=== PATIENT | male | born 1950 | race Caucasian/White ===

== ENCOUNTER 2024-03-04 08:26 | Outpatient (OUT) | payer MEDICARE, BC, SELFPAY ==
--- NOTE | 2024-03-04 08:10 | NM_ITS ---
Patient Name: GO ALVAREZ MR#: [id number] : 1950 Exam Date: 03/04/2024 Ordering Doctor: DR SUSHIL PAK . RADIOLOGY REPORT PROCEDURE: NM AL PERF SPECT REST STR COMPARISON: None. INDICATIONS: CHEST PRESSURE, SHORTNESS OF BREATH TECHNIQUE: Exam Description: Stress/Rest one day protocol gated SPECT Rest Imagin.9 mCi Tc-99m Cardiolite IV on 03/04/2024 Stress Imaging 30.2 mCi Tc-99m Cardiolite IV on 03/04/2024 Exercise Protocol: 0.4 mg Lexiscan given IV Heart Rate (bpm): Rest: 71 Max: 100 PMHR: 68 Blood Pressure: Rest: 156/82 Max: 156/82 Symptoms: Rest and peak stress ECG findings were normal and the exercise portion of the study was normal per attending physician Dr. Fajardo . For more details please see separate cardiac stress test report. FINDINGS: QUALITY OF STUDY: Excellent. PERFUSION DEFECT: LOCATION: Basal inferior. Mid-inferior. Apical inferior. SIZE: Medium (3-4 segments). SEVERITY: Mild. TYPE: Persistent. WALL MOTION: Mild hypokinesis: LV SIZE: Enlarged; EDV 142 mL. TID / TCD: None; 1.0 LVEF: Abnormal. Calculated EF 45%. SUMMARY: Myocardial perfusion imaging study has ABNORMAL findings. CONCLUSION: 1. No acute or reversible ischemia. 2. Fixed, mild ischemia of inferior wall. 3. Global mild hypokinesis. 4. Left ventriculomegaly, 142 mL. 5. Abnormal low left ventricle ejection fraction, 45%. Dictated by: Domenic Son M.D. on 03/05/2024 at 14:24 Approved by: Domenic Son M.D. on 03/05/2024 at 14:32
[2024-03-04] MEDS: REGADENOSON 0.4 MG/5 ML SYRINGE 0.400000000000000022 MG IV (10:08)
--- NOTE | 2024-03-04 11:15 | CA_ITS ---
Patient Name: GO ALVAREZ MR#: [id number] : 1950 Exam Date: 03/04/2024 Ordering Doctor: DR SUSHIL PAK . ECHOCARDIOGRAM REPORT PROCEDURE: CA ECHO DOPPLER COMPLETE INDICATIONS: SHORTNESS OF BREATH, CHEST PRESSURE COMPARISON: None. DESCRIPTION: COMPLETE ECHOCARDIOGRAM Real-time transthoracic echocardiography with 2D, M-mode, spectral and color flow Doppler performed. QUALITY: Technical quality was good. LEFT VENTRICLE: Normal chamber size. Borderline left ventricular hypertrophy. Global left ventricular systolic function is normal. LV EF: Estimated left ventricular ejection fraction is 55% DIASTOLIC: Diastolic function is indeterminate. ATRIAL SEPTUM: LEFT ATRIUM: Mild dilatation. RIGHT ATRIUM: Mild dilatation. RIGHT VENTRICLE: Normal chamber size. Normal right ventricular systolic function. TRICUSPID VALVE: Normal mobility and thickness. Normal with trivial regurgitation. No evidence of pulmonary hypertension. RVSP 17 mmHg MITRAL VALVE: Normal mobility and thickness. No evidence of mitral valve stenosis. There is no mitral annular calcification. Trivial mitral regurgitation. AORTIC VALVE: Normal trileaflet appearance. Mildly calcified aortic valve. Normal leaflet mobility. No evidence of aortic valve stenosis. No aortic regurgitation. AORTIC ROOT: Normal diameter and appearance. PULMONIC VALVE: Normal thickness and mobility. No stenosis. No regurgitation. PERICARDIUM: No evidence of pericardial effusion. IVC: Collapses with inspirations. Normal size. PLEURA: CONCLUSION: 1. Normal ventricular systolic function. LVEF is 55%. 2. No significant valvular dysfunction. 3. Normal right-sided pressures. 4. No pericardial effusion. Adult Echocardiography Procedure Report Left Ventricle LVEDD (3.7 - 5.6 cm): 5.24 cm LVESD (2.2 - 4.0 cm): 3.48 cm LVIVS thickness (0.6 - 1.2 cm): 1.01 cm LVPW thickness (0.5 - 1.0 cm): 1.12 cm e': 0.09 m/s E - e': 8.64 LVOT Max Gradient: 3.00 mm[Hg] LVOT Area (cm2): 0.87 m/s Peak Velocity (LVOT): 0.87 m/s Mean Velocity (LVOT): 0.56 m/s LVOT Diameter 2.31 cm Left Ventricular Ejection Fraction: 55 % Left Atrium LA Volume Index (2D A2C): 43.70 ml/m2 Left Atrium Systolic Dimension: 4.03 cm Mitral Valve MV E to A Ratio: 0.81 Mitral Valve A-Wave Peak Velocity: 0.98 m/s Mitral Valve E-Wave Peak Velocity: 0.79 m/s Right Ventricle RV Internal Diastolic Dimension: 3.62 cm Aorta AO Root Diam: 3.79 cm Ascending Ao Diam: 3.61 cm Aortic Valve AoV Area (Peak Burt): 1.91 cm2, 1.91 cm2 AoV Area (VTI): 1.91 cm2, 1.91 cm2 Peak Velocity(Antegrade Flow): 1.90 m/s Peak Gradient(Antegrade Flow): 14.49 mm[Hg] Mean Velocity(Antegrade Flow): 1.22 m/s Mean Gradient(Antegrade Flow): 6.78 mm[Hg] Velocity Time Integral: 37.36 cm Tricuspid Valve Peak Velocity (Regurgitant Flow): 1.28 m/s, 1.88 m/s Pulmonic Valve Mean Gradient: 2.22 mm[Hg], 2.61 mm[Hg], 3.41 mm[Hg], 3.14 mm[Hg] Mean Velocity: 0.67 m/s, 0.74 m/s, 0.88 m/s, 0.82 m/s Peak Velocity: 1.14 m/s Peak Gradient: 4.49 mm[Hg], 4.73 mm[Hg], 5.31 mm[Hg], 6.49 mm[Hg] Right Atrium Right Atrium Systolic Pressure: 66.75 ml, 66.75 ml Dictated by: Eran Galindo M.D. on 03/06/2024 at 12:56 Approved by: Eran Galindo M.D. on 03/06/2024 at 12:59
--- NOTE | 2024-03-04 16:12 | P.STRESS_ITS ---
Stress Test Stress Test Requesting physician: SUSHIL PAK Procedure: Lexiscan Cardilite stress test General Information: Reason for Stress Test: Dyspnea, chest pressure Cardiac History and Risk Factors: Prior AR Resting 12 - Lead Electrocardiogram: Rate & rhythm: Normal sinus at a rate of 72. [place]: Normal T-waves: Normal ST-segments: Normal orientation 1st-degree AV block Stress Test: Protocol: Doni protocol was initiated, but due to inability to ambulate, the exercise component was therefore canceled.? Testing was changed to Lexiscan protocol, with injection of 0.4mg Lexiscan IV push followed by Cardiolite. Blood pressure: Initial & maximum: 156/82 Rate & rhythm: Patient remained in sinus rhythm during the exercise and recovery portions of the study.? The maximum heart rate was 100, which was 68% of the maximum predicted heart rate 147. ST-segments & T-waves: There were no T-wave changes and no ST-segment changes when compared to the baseline EKG. Patient response/symptoms: There were no symptoms similar to the chief complaint. Interpretation: Normal Lexiscan stress test without electrocardiographical evidence of ischemia. Patient was asymptomatic regarding chief complaint. Cardiolite imaging interpretation will be reported separately. Clinical correlation required.
== END 2024-03-04 08:27 | disposition home or self-care (01) ==
LOC: NM 08:26
PROVIDERS: PCP Family Medicine; Visit Provider Family Medicine
DX: R06.09 Other forms of dyspnea (principal); R07.2 Precordial pain; I50.32 Chronic diastolic (congestive) heart failure; I44.0 Atrioventricular block, first degree; I25.5 Ischemic cardiomyopathy; I44.7 Left bundle-branch block, unspecified; I51.7 Cardiomegaly
CPT/HCPCS: 78452; 93017; 93306; A9500; J2785

== ENCOUNTER 2025-03-22 09:43 | Observation (INO) | payer MEDICARE, SELFPAY ==
[2025-03-22] VITALS (10 sets, daily range): BP systolic 130–179; BP diastolic 65–90; PULSE 79–91; TEMP 36.3–37.4; O2SAT 93–96; BMI 33.0; BMI 33.3
--- OUTSIDE RECORDS SUMMARY | 2025-03-22 09:51 | XMS_ITS | CCD ---
Author Organization [facility] Team Providers Care Vp Scientific Name Role Phone Danelle Silva Unavailable Essence Ledezma Unavailable DR SUSHIL PAK Primary Care Unavailable POCOS, DR LY Attending Unavailable POCOS, DR LY Consulting Unavailable POCOS, DR LY Admitting Unavailable Sushil Pak MD Unavailable [phone] Sushil Pak MD Primary Care Provider Peg MELVIN, Satish Aquino Unavailable Sushil Pak MD Unavailable Sushil Pak MD Primary Care Provider [phone] Jojo Jc LPN Unavailable Unavailable SUSHIL PAK Attending Unavailable SUSHIL PAK Attending Unavailable SUSHIL PAK Attending Unavailable SUSHIL PAK Attending Unavailable SUSHIL PAK Attending Unavailable SUSHIL PAK Attending Unavailable Medications Current Medications Medication Drug Class(es) Dates Sig (Normalized) Sig (Original) acarbose 100 mg oral tablet (3 sources) alpha-Glucosidase Inhibitor Acarbose 100 MG Oral for 90 Active [id number] 200 actuat albuterol 0.09 mg/actuat metered dose inhaler (9 sources) beta2-Adrenergic Agonist Start: 09-23-2021 take 2 puff(s) by inhalation four times daily as needed Albuterol Sulfate HFA 108 (90 Base) MCG/ACT 2 puffs Inhalation qid prn Aug, Active Start: 09-23-2021 take 2 puff(s) by in halation four times daily as needed Albuterol Sulfate HFA 108 (90 Base) MCG/ACT 2 puffs Inhalation qid prn Aug, Active Start: 07-19-2021 take 2 puff(s) by in halation every four hours as needed Albuterol Sulfate HFA 108 (90 Base) MCG/ACT 2 puffs as needed Inhalation every 4 hrs January, Active Start: 07-19-2021 take 2 puff(s) by in halation every four hours as needed Albuterol Sulfate HFA 108 (90 Base) MCG/ACT 2 puffs as needed Inhalation every 4 hrs Jul, Active take 2 puff(s) by in halation every six hours as needed Albuterol Sulfate HFA 108 (90 Base) MCG/ACT 2 puffs as needed Inhalation every 6 hrs for 30 days Not-Taking take 2 puff(s) by in halation every six hours as needed Albuterol Sulfate HFA 108 (90 Base) MCG/ACT 2 puffs as needed Inhalation every 6 hrs for 30 days Not-Taking aspirin 81 mg delayed release oral tablet (14 sources) Platelet Aggregation Inhibitor, Nonsteroidal Anti-inflammatory Drug take 1 tablet by mouth every other day aspirin 81 MG EC tablet Take 81 mg by mouth every other day. Active Blood Glucose Monitoring Suppl (True Metrix Meter) w/Device kit (14 sources) Start: Blood Glucose Monitoring Suppl (True Metrix Meter) w/Device kit USE DIRECTED to check BLOOD SUGAR TWICE DAILY 01/04/2024 Active Blood-Glucose Meter (True Metrix Glucose Meter) misc (1 source) Start: 024 Blood-Glucose Meter (True Metrix Glucose Meter) [facility] Active EACH .ROUTE .MEDSUPPLY March 16, 2024 12:00am As directed Continuous Glucose General Surgery Physician Assistant (FreeStyle Bridger 3 [place]) device (6 sources) Start: 025 Continuous Glucose General Surgery Physician Assistant (FreeStyle Bridger 3 [place]) device Indications: Type 2 diabetes mellitus with both eyes affected by mild nonproliferative retinopathy without macular edema, without long-term current use of insulin ([facility]) 1 Device See administration instructions Using Bridger 3 plus sensors 1 each 10/23/2024 Active Start: 10-23-2024 Continuous Glu cose General Surgery Physician Assistant (FreeStyle Bridger 3 [place]) device Indications: Type 2 diabetes mellitus with both eyes affected by mild nonproliferative retinopathy without macular edema, without long-term current use of insulin (CMS/HCC) 1 Device See administration instructions 10/23/2024 Active Continuous Glucose Sensor (FreeStyle Bridger 3 Plus Sensor) mis (6 sources) Start: 02-24-2025 End: 02-24-2026 Continuous Glucose Sensor (FreeStyle Bridger 3 Plus Sensor) [facility] [place]ications: Type 2 diabetes mellitus with both eyes affected by mild nonproliferative retinopathy without macular edema, without long-term current use of insulin (CMS/HCC) Inject 1 Device into the skin Every 15 Days 6 each 3 02/24/2025 02/24/2026 Active Start: 10-23-2024 End: 02-24-2025 Continuous Glucose Sensor (F reeStyle Bridger 3 Plus Sensor) [facility] Indications: Type 2 diabetes mellitus with both eyes affected by mild nonproliferative retinopathy without macular edema, without long-term current use of insulin (CMS/HCC) Inject 1 Device into the skin Every 15 Days 6 each 3 10/23/2024 02/24/2025 Discontinued (Reorder) Start: 10-23-2024 End: 10-23-2025 Continuous Glucose Sensor (F reeStyle Bridger 3 Plus Sensor) [facility] Indications: Type 2 diabetes mellitus with both eyes affected by mild nonproliferative retinopathy without macular edema, without long-term current use of insulin (CMS/HCC) Inject 1 Device into the skin Every 15 Days 6 each 3 10/23/2024 10/23/2025 Active Continuous Glucose Sensor (FreeStyle Bridger 3 Sensor) mis (2 sources) Start: 10-23-2024 Continuous Glucose Sensor (FreeStyle Bridger 3 Sensor) [facility] Indications: Type 2 diabetes mellitus with both eyes affected by mild nonproliferative retinopathy without macular edema, without long-term current use of insulin (CMS/HCC) Inject 1 Device under the skin every 14 (fourteen) days 10/23/2024 Active fluticasone propionate 0.05 mg/actuat metered dose nasal spray (2 sources) Corticosteroid Start: 09-23-2021 take 2 spray(s) nasal route once daily Fluticasone Propionate 50 MCG/ACT 2 sprays Nasally Once a day for 14 day(s) Aug, Active hydroCHLOROthiazide 12.5 mg / losartan potassium 100 mg oral tablet (4 sources) Thiazide Diuretic, Angiotensin 2 Receptor Stuart Start: 03-16-2024 take 1 tablet by mouth once daily Losartan-Hydrochloro thiazide Active 1 TAB PO Daily March 16, 2024 12:00am FreeTextSig: Oral; Note: Source Status: Taking; Qty: 90 delayed release tablet; Provider: Ricardo Mcclendon ( ) Losartan Potassi um-HCTZ 100-12.5 MG Oral for 90 Active Insulin Aspart U-100 (Novolog Flexpen U-100 Insulin) 100 unit/mL (3 mL) insulin pen (1 source) Start: 03-16-2024 Insulin Aspart U-100 (Novolog Flexpen U-100 Insulin) 100 unit/mL (3 mL) insulin pen Active 1 sliding scale dose SUBCUT Use as Directed March 16, 2024 12:00am insulin aspart, human (3 sources) Insulin Analog NovoLOG Active 3 ml insulin degludec 100 unt/ml pen injector (6 sources) Insulin Analog Start: 11-18-2024 inject 10 [IU] by subcutaneous injection once daily insulin degludec (Tresiba FlexTouch) 100 UNIT/ML injection Indications: Type 2 diabetes mellitus with both eyes affected by mild nonproliferative retinopathy without macular edema, without long-term current use of insulin (CMS/HCC) Inject 10 Units under the skin Daily 15 mL 11/18/2024 Active Start: 10-23-2024 inject 10 [IU] by woodard bcutaneous injection once daily insulin degludec (Tresiba FlexTouch) 100 UNIT/ML injection Indications: Type 2 diabetes mellitus with both eyes affected by mild nonproliferative retinopathy without macular edema, without long-term current use of insulin (CMS/HCC) Inject 10 Units under the skin Daily 10/23/2024 Active Start: 10-23-2024 inject 10 [IU] by woodard bcutaneous injection once daily insulin degludec (Tresiba FlexTouch) 100 UNIT/ML injection Indications: Type 2 diabetes mellitus with both eyes affected by mild nonproliferative retinopathy without macular edema, without long-term current use of insulin (CMS/HCC) Inject 10 Units under the skin Daily 10/23/2024 Active pioglitazone 45 mg oral tablet (3 sources) Peroxisome Proliferator Receptor alpha Agonist, Peroxisome Proliferator Receptor gamma Agonist, Thiazolidinedione Pioglitazone HCl 45 MG Oral for 90 Active predniSONE 20 mg oral tablet (1 source) Start: 2020 take 1 tablet by mouth every twelve hours predniSONE 20 MG 1 tablet Orally bid for 5 day(s) Aug, Active semaglutide 14 mg oral tablet (20 sources) Start: 2024 take 1 tablet by mouth before mealtime semaglutide (Rybelsus) 14 MG tablet Indications: Type 2 diabetes mellitus with both eyes affected by mild nonproliferative retinopathy without macular edema, without long-term current use of insulin ([facility]) Take 1 tablet (14 mg) by mouth in the morning. Take before meals. 30 tablet 11/18/2024 Active Start: 08-11-2024 End: 10-22-2024 semaglutide (Rybelsus) 14 MG tablet Take 14 mg by mouth in the morning. Take before meals. Do not start before August 11, 2024. 08/11/2024 10/22/2024 Discontinued (Reorder) Start: 08-11-2024 semaglutide (R ybelsus) 14 MG tablet Take 14 mg by mouth in the morning. Take before meals. Do not start before August 11, 2024. 08/11/2024 Active Start: 08-11-2024 semaglutide (R ybelsus) 14 MG tablet Take 14 mg by mouth in the morning. Take before meals. Do not start before August 11, 2024. 08/11/2024 Active Start: 08-11-2024 semaglutide (R ybelsus) 14 MG tablet Take 14 mg by mouth in the morning. Take before meals. Do not start before August 11, 2024. 08/11/2024 Active Start: 08-11-2024 semaglutide (R ybelsus) 14 MG tablet Take 14 mg by mouth in the morning. Take before meals. Do not start before August 11, 2024. 08/11/2024 Active Start: 07-12-2024 End: 10-20-2024 semaglutide (Rybelsus) 7 MG tablet Take 7 mg by mouth in the morning. Take before meals. Do not start before July 12, 2024. 07/12/2024 10/20/2024 Discontinued (Med list cleanup) Start: 06-12-2024 End: 07-21-2024 semaglutide (Rybelsus) 3 MG tablet Take 3 mg by mouth in the morning. Take before meals. Do not start before June 12, 2024. 06/12/2024 07/21/2024 Discontinued (Therapy completed) {20 (nirmatrelvir 150 MG Ora l Tablet) / 10 (ritonavir 100 MG Oral Tablet) } Pack [Paxlovid 5-Day] (1 source) Start: 02-04-2022 Paxlovid 20 x 150 MG & 10 x 100MG as directed Orally as directed for 5 day(s) January, Active Completed/Discontinued Medications Medication Drug Class(es) Dates Sig (Normalized) Sig (Original) allopurinol 100 mg oral tablet (20 sources) Xanthine Oxidase Inhibitor Start: 07-21-2024 End: 08-23-2025 take 1 tablet by mouth once daily allopurinol (Zyloprim) 100 MG tablet Indications: Hyperuricemia Take 1 tablet (100 mg) by mouth Daily 90 tablet 1 10/22/2024 02/24/2025 Discontinued (Reorder) Start: 03-16-2024 Allopurinol Ac tive MG PO March 16, 2024 12:00am FreeTextSig: Oral; Note: Source Status: Taking; Qty: 90 delayed release tablet; Provider: Ricardo Mcclendon ( ) azithromycin 250 mg oral tablet (10 sources) Macrolide Antimicrobial Start: 10-08-2024 End: 10-22-2024 azithromycin (Zithromax) 250 MG tablet Indications: Bronchitis Take 2 tablets day one then 1 tablet daily 6 tablet 10/08/2024 10/22/2024 Discontinued (Therapy completed) Start: 07-19-2021 Azithromycin 2 50 MG 2 tablets on the first day, then 1 tablet daily for 4 days Orally Once a day for 5 day(s) Jul, Not-Taking dextromethorphan hydrobromide 15 mg / guaiFENesin 400 mg / pseudoephedrine hydrochloride 60 mg oral tablet (6 sources) alpha-Adrenergic Agonist, Uncompetitive P-rdjbiz-G-aspartate Receptor Antagonist, Sigma-1 Agonist Start: 10-14-2024 End: 10-24-2024 take 1 tablet by mouth in the morning, then take 1 tablet by mouth in the evening, then take 1 tablet by mouth at bedtime fgniiguxtjgqqmf-YJ-XY (Capmist DM) 60-15-400 MG tablet Indications: Bronchitis Take 1 tablet by mouth in the morning and 1 tablet in the evening and 1 tablet before bedtime. Do all this for 10 days. 30 tablet 10/14/2024 10/22/2024 Discontinued (Therapy completed) Start: 03-16-2024 take 4 tablets by mo [facility] every twenty-four hours Ebpkytnyaiueerf-Cx-Tvktaswftot (Capmist Dm) 60-15-400 mg tablet Active 1 TAB PO EVERY 4-6 HOURS March 16, 2024 12:00am do not exceed 4 doses per 24 hrs levoFLOXacin 750 mg oral tablet (4 sources) Quinolone Antimicrobial Start: 10-14-2024 End: 10-22-2024 take 1 tablet by mouth once daily levoFLOXacin (Levaquin) 750 MG tablet Indications: Bronchitis Take 1 tablet (750 mg) by mouth Daily for 7 days 7 tablet 10/14/2024 10/22/2024 Discontinued (Therapy completed) losartan potassium 50 mg oral tablet (20 sources) Angiotensin 2 Receptor Stuart Start: 07-21-2024 End: 08-23-2025 take 1 tablet by mouth in the morning losartan (Cozaar) 50 MG tablet Indications: Benign essential hypertension (CMS/HCC) Take 1 tablet (50 mg) by mouth in the morning. 90 tablet 1 10/22/2024 02/24/2025 Discontinued (Reorder) Start: 03-20-2024 End: 07-21-2024 take 1 tablet by mouth in the morning losartan (Cozaar) 25 MG tablet Indications: Type 2 diabetes mellitus with hyperglycemia, without long-term current use of insulin (CMS/HCC) Take 1 tablet (25 mg) by mouth in the morning. 90 tablet 03/20/2024 07/21/2024 Discontinued (Reorder) 24 hr metFORMIN hydrochloride 750 mg extended release oral tablet (20 sources) Biguanide Start: 07-15-2024 End: 08-23-2025 take 1 tablet by mouth every twenty-four hours in the morning metFORMIN XR (Glucophage-XR) 750 MG 24 hr tablet Indications: Type 2 diabetes mellitus with hyperglycemia, without long-term current use of insulin (CMS/HCC) Take 1 tablet (750 mg) by mouth in the morning and 1 tablet (750 mg) before bedtime. Do not crush, chew, or split.. 180 tablet 1 10/22/2024 02/24/2025 Discontinued (Reorder) Start: 03-16-2024 Metformin Acti ve MG PO March 16, 2024 12:00am metFORMIN HCl 10 00 MG Oral for 90 Active methylPREDNISolone 4 mg oral tablet (7 sources) Corticosteroid Start: 09-28-2019 methylPREDNISo lone 4 MG as directed Orally Once a day for 6 days Jul, Not-Taking Suprep Bowel Prep Kit 17.5-3.13-1.6 GM/180ML (3 sources) Start: 10-23-2019 Suprep Bowel P rep Kit 17.5-3.13-1.6 GM/180ML 177 ML BOTTLE AT 4 PM AND ONE BOTTLE AT 11 PM DAY PRIOR TO PROCEDURE Orally Twice a day for 1 day(s) Oct, Not-Taking Problems Active Problems Problem Classification Problem Date Documented Date Episodic/Chronic Cataract (14 sources) Bilateral pseudophakia; Translations: [Presence of intraocular lens] Onset: 07-13-2023 07-13-2023 Chronic Chronic obstructive pulmonary disease and bronchiectasis (4 sources) Bronchitis, not specified as acute or chronic; Translations: [Bronchitis] Onset: 07-19-2021 Resolved: 02-04-2022 Episodic Conduction disorders (20 sources) Left bundle branch block; Translations: [Left bundle-branch block, unspecified] Onset: 07-31-2023 07-31-2023 Chronic Congestive heart failure; nonhypertensive (14 sources) Chronic diastolic heart failure; Translations: [Chronic diastolic (congestive) heart failure] Onset: 07-31-2023 01-07-2024 Chronic Coronary atherosclerosis and other heart disease (14 sources) Ischemic myocardial dysfunction; Translations: [Ischemic cardiomyopathy] Onset: 01-07-2024 01-07-2024 Chronic Diabetes mellitus with complications (20 sources) Type 2 diabetes mellitus with mild nonproliferative diabetic retinopathy without macular edema, bilateral; Translations: [Diabetes with ophthalmic manifestations, type II or unspecified type, not stated as uncontrolled] Onset: 07-13-2023 07-13-2023 Chronic Diverticulosis and diverticulitis (14 sources) Diverticulum of large intestine without hemorrhage; Translations: [Diverticulosis of large intestine without perforation or abscess without bleeding] Onset: 07-31-2023 07-31-2023 Chronic Essential hypertension (20 sources) Hypertensive disorder; Translations: [Essential (primary) hypertension] Onset: 07-31-2023 03-16-2024 Chronic Genitourinary symptoms and ill-defined conditions (18 sources) Microalbuminuria; Translations: [Proteinuria, unspecified] Onset: 07-31-2023 07-31-2023 Episodic Gout and other crystal arthropathies (1 source) Gout; Translations: [Gout, unspecified] 03-16-2024 Chronic Hyperplasia of prostate (14 sources) Benign localized hyperplasia of prostate; Translations: [Benign prostatic hyperplasia without lower urinary tract symptoms] Onset: 07-31-2023 07-31-2023 Chronic Hypertension with complications and secondary hypertension (2 sources) Hypertensive renal disease; Translations: [Hypertensive chronic kidney disease with stage 1 through stage 4 chronic kidney disease, or unspecified chronic kidney disease] 02-24-2025 Chronic Inflammation; infection of eye (except that caused by tuberculosis or sexually transmitteddisease) (14 sources) Chronic allergic conjunctivitis; Translations: [Other chronic allergic conjunctivitis] Onset: 07-31-2023 07-31-2023 Chronic Osteoarthritis (20 sources) Degenerative joint disease involving multiple joints; Translations: [Polyosteoarthritis, unspecified] Onset: 07-31-2023 07-31-2023 Chronic Other and ill-defined heart disease (14 sources) Right cardiac ventricular dilatation; Translations: [Cardiomegaly] Onset: 01-07-2024 01-07-2024 Chronic Other ear and sense organ disorders (14 sources) Sensorineural hearing loss, bilateral; Translations: [Sensorineural hearing loss, bilateral] Onset: 07-13-2023 07-13-2023 Chronic Other hereditary and degenerative nervous system conditions (14 sources) Impaired cognition; Translations: [Mild cognitive impairment, so stated] Onset: 07-31-2023 07-31-2023 Chronic Other liver diseases (16 sources) Fatty (change of) liver, not elsewhere classified; Translations: [Other chronic nonalcoholic liver disease] Onset: 07-31-2023 07-31-2023 Chronic Other lower respiratory disease (14 sources) Fibrosis of lung; Translations: [Pulmonary fibrosis, unspecified] Onset: 01-07-2024 01-07-2024 Chronic Other male genital disorders (14 sources) Vasculopathic erectile dysfunction; Translations: [Male erectile dysfunction, unspecified] Onset: 07-13-2023 07-13-2023 Chronic Other nervous system disorders (14 sources) Chronic pain; Translations: [Other chronic pain] Onset: 07-31-2023 07-31-2023 Chronic Other nutritional; endocrine; and metabolic disorders (12 sources) Morbid obesity; Translations: [Morbid (severe) obesity due to excess calories] Onset: 07-31-2023 07-31-2023 Chronic Other nutritional; endocrine; and metabolic disorders (20 sources) Obesity caused by energy imbalance; Translations: [Class 1 obesity due to excess calories with serious comorbidity and body mass index (BMI) of 33.0 to 33.9 in adult] Onset: 07-21-2024 Resolved: 10-20-2024 07-21-2024 Chronic Other nutritional; endocrine; and metabolic disorders (20 sources) Hyperuricemia; Translations: [Hyperuricemia without signs of inflammatory arthritis and tophaceous disease] Onset: 07-31-2023 12-21-2023 Episodic Other upper respiratory infections (3 sources) Acute sinusitis, unspecified; Translations: [Viral upper respiratory tract infection] Onset: 09-23-2021 Resolved: 09-23-2021 Episodic Residual codes; unclassified (14 sources) Obstructive sleep apnea syndrome; Translations: [Obstructive sleep apnea (adult) (pediatric)] Onset: 07-31-2023 07-31-2023 Chronic Screening and history of mental health and substance abuse codes (18 sources) Ex-cigarette smoker; Translations: [Personal history of nicotine dependence] Onset: 01-07-2024 01-07-2024 Episodic Unclassified (1 source) CONTACT W/AND (SUSP) EXPOS COVID-19; Translations: [CONTACT W/AND (SUSP) EXPOS COVID-19] Onset: 04-14-2022 Past or Other Problems Problem Classification Problem Date Documented Da te Episodic/Chronic Blindness and vision defects (14 sources) Presbyopia; Translations: [Presbyopia] Onset: 07-13-2023 07-13-2023 Episodic Diabetes mellitus without complication (15 sources) Diabetes mellitus; Translations: [Type 2 diabetes mellitus without complications] Onset: 07-31-2023 Resolved: 12-26-2023 03-16-2024 Chronic Immunizations and screening for infectious disease (2 sources) Contact with and (suspected) exposure to other viral communicable diseases; Translations: [Contact with and (suspected) exposure to other viral communicable diseases Z20.828] Onset: 07-19-2021 Resolved: 09-23-2021 Episodic Joint disorders and dislocations; trauma-related (14 sources) Tear of medial meniscus of knee; Translations: [Other tear of medial meniscus, current injury, right knee, initial encounter] Onset: 07-31-2023 07-31-2023 Episodic Mood disorders (14 sources) Mood disorders Onset: 12-26-2023 12-26-2023 Other and unspecified benign neoplasm (14 sources) Tubular adenoma of colon; Translations: [Benign neoplasm of colon, unspecified] Onset: 07-13-2023 07-13-2023 Episodic Other ear and sense organ disorders (14 sources) Bilateral tinnitus; Translations: [Tinnitus, bilateral] Onset: 07-31-2023 07-31-2023 Episodic Spondylosis; intervertebral disc disorders; other back problems (14 sources) Sciatica; Translations: [Sciatica, unspecified side] Onset: 07-13-2023 Resolved: 12-20-2023 12-20-2023 Episodic Unclassified (1 source) Cough R05.9 Onset: 02-04-2022 Resolved: 02-04-2022 Unclassified (14 sources) Onset: 08-03-2023 Resolved: 08-01-2024 08-03-2023 Viral infection (1 source) COVID-19 Onset: 02-04-2022 Resolved: 02-04-2022 Results Test Name Value Interpretation Reference Range Facility ALBUMIN, RANDOM URINE W/CREA TININEon 02-21-2025 ALBUMIN, URINE 1.5 mg/dL Normal See Note: [facility] Comment on above: Order Comment: FASTI NG:YES FASTING: YES Result Comment: Refe rence Range: Reference Range Not established Performed By: #### 4 20, [id number] #### [facility] [address], [address] [place] [id number] [employer] Rigger: Juan Mckenna MD ALBUMIN/CREATININE RATIO, RANDOM URINE 33 mg/g creat High <30 [facility] Comment on above: Order Comment: FASTI NG:YES FASTING: YES Result Comment: The ADA defines abnormalities in albumin excretion as follows: Albuminuria Category Result (mg/g creatinine) Normal to Mildly increased <30 Moderately increased 30-299 Severely increased > OR = 300 The ADA recommends that at least two of three specimens collected within a 3-6 month period be abnormal before considering a patient to be within a diagnostic category. Performed By: #### 4 96, 6517 #### [facility] [address], [address] [place] [address] [employer] Rigger: Juan Mckenna MD Creatinine (U) [Mass/Vol] 46 mg/dL Normal 20-320 [facility] Comment on above: Order Comment: FASTI NG:YES FASTING: YES Performed By: #### 4 , 6517 #### [facility] [address], [address] [place] [address] [employer] Rigger: Juan Mckenna MD HEMOGLOBIN A1con 02-21-2025 HbA1c (Bld) [Mass fraction] 8.5 % High <5.7 [facility] Comment on above: Result Comment: For someone without known diabetes, a hemoglobin A1c value of 6.5% or greater indicates that they may have diabetes and this should be confirmed with a follow-up test. For someone with known diabetes, a value <7% indicates that their diabetes is well controlled and a value greater than or equal to 7% indicates suboptimal control. A1c targets should be individualized based on duration of diabetes, age, comorbid conditions, and other considerations. Currently, no consensus exists regarding use of hemoglobin A1c for diagnosis of diabetes for children. Performed By: #### 4 96, 6517 #### [facility] [address], [address] [place] [address] [employer] Rigger: Juan Mckenna MD COMPREHENSIVE METABOLIC PANE [facility] 02-07-2025 Albumin [Mass/Vol] 4.3 g/dL Normal 3.6-5.1 [facility] Comment on above: Performed By: #### 1 0231, 905, 0840 #### [facility] [address], [address] [place] [address] [employer] Rigger: Juan Mckenna MD Albumin/Globulin [Mass ratio] 1.7 {ratio} Normal 1.0-2.5 [facility] Comment on above: Performed By: #### 1 230, 90, 7600 #### [facility] [place] [address] [employer] Rigger: Juan Mckenna MD ALP [Catalytic activity/Vol] 40 U/L Normal 35-144 [facility] Comment on above: Performed By: #### 1 230, , 7600 #### [facility] [place] [address] [employer] Rigger: Juan Mckenna MD ALT [Catalytic activity/Vol] 16 U/L Normal 9-46 [facility] Comment on above: Performed By: #### 1 230, 90, 7600 #### [facility] [place] [address] [employer] Rigger: Juan Mckenna MD AST [Catalytic activity/Vol] 15 U/L Normal 10-35 [facility] Comment on above: Performed By: #### 1 230, , 7600 #### [facility] [place] [address] [employer] Rigger: Juan Mckenna MD Bilirubin [Mass/Vol] 0.5 mg/dL Normal 0.2-1.2 [facility] Comment on above: Performed By: #### 1 230, , 7600 #### [facility] [place] [address] [employer]: Juan Mckenna MD Calcium [Mass/Vol] 9.4 mg/dL Normal 8.6-10.3 [facility] Comment on above: Performed By: #### 1 230, 90, 7600 #### [facility] [place] [address] [employer]: Juan Mckenna MD Chloride [Moles/Vol] 102 mmol/L Normal 98-110 [facility] Comment on above: Performed By: #### 1 230, 90, 7600 #### [facility] [place] [address] [employer]: Juan Mckenna MD CO2 [Moles/Vol] 24 mmol/L Normal 20-32 [facility] Comment on above: Performed By: #### 1 230, 90, 7600 #### [facility] [place] [address] [employer]: Juan Mckenna MD Creatinine [Mass/Vol] 0.61 mg/dL Low 0.70-1.28 [facility] Comment on above: Performed By: #### 1 230, 90, 7600 #### [facility] [place] [address] [employer]: Juan Mckenna MD GFR/1.73 sq M.predicted among non-blacks MDRD (S/P/Bld) [Vol rate/Area] 101 mL/min/{1.73_m2} Normal > OR = 60 [facility] Comment on above: Performed By: #### 1 230, 90, 0 #### [facility] [place] [address] [employer]: Juan Mckenna MD Globulin (S) [Mass/Vol] 2.5 g/dL Normal 1.9-3.7 [facility] Comment on above: Performed By: #### 1 230, 90, 7600 #### [facility] [place] [address] [employer]: Juan Mckenna MD Glucose [Mass/Vol] 198 mg/dL High 65-99 [facility] Comment on above: Result Comment: Fasting reference interval For someone without known diabetes, a glucose value >125 mg/dL indicates that they may have diabetes and this should be confirmed with a follow-up test. Performed By: #### 1 230, 90, 7600 #### [facility] [place] [address] [employer]: Juan Mckenna MD Potassium [Moles/Vol] 4.3 mmol/L Normal 3.5-5.3 [facility] Comment on above: Performed By: #### 1 023, 90, 7600 #### [facility] [place] [address] [employer]: Juan Mckenna MD Protein [Mass/Vol] 6.8 g/dL Normal 6.1-8.1 [facility] Comment on above: Performed By: #### 1 023, 90, 7600 #### [facility] [place] [address] [employer]: Juan Mckenna MD Sodium [Moles/Vol] 137 mmol/L Normal 135-146 [facility] Comment on above: Performed By: #### 1 023, 90, 7600 #### [facility] [place] [address] [employer]: Juan Mckenna MD Urea nitrogen [Mass/Vol] 9 mg/dL Normal 7-25 [facility] Comment on above: Performed By: #### 1 023, 90, 7600 #### [facility] [place] [address] [employer]: Juan Mckenna MD Urea nitrogen/Creatinin e [Mass ratio] 15 mg/mg Normal 6-22 [facility] Comment on above: Performed By: #### 1 023, 90, 7600 #### [facility] [place] [address] [employer]: Juan Mckenna MD LIPID PANEL, [facility] 05-1 0 Cholesterol [Mass/Vol] 169 mg/dL Normal <200 [facility] Comment on above: Order Comment: FASTI NG:YES FASTING: YES Performed By: #### 1 023, 905, 7600 #### [facility] [place] [address] [employer]: Juan Mckenna MD Cholesterol in HDL [Mass/Vol] 63 mg/dL Normal > OR = 40 [facility] Comment on above: Order Comment: FASTI NG:YES FASTING: YES Performed By: #### 1 0231, 905, 7600 #### [facility] [address], [address] [place] [address] [employer]: Juan Mckenna MD Cholesterol in LDL [Mass/Vol] 90 mg/dL Normal [facility] Comment on above: Order Comment: FASTI NG:YES FASTING: YES Result Comment: Refe rence range: <100 Desirable range <100 mg/dL for primary prevention; <70 mg/dL for patients with CHD or diabetic patients with > or = 2 CHD risk factors. LDL-C is now calculated using the Russell calculation, which is a validated novel method providing better accuracy than the Friedewald equation in the estimation of LDL-C. Keyshawn SS et al. LAKESHA. 2013;310(19): 9689-8150 (http://education.[employer]/faq/XEA870) Performed By: #### 1 023, 905, 7600 #### [facility] [address], [address] [place] [address] [employer]: Juan Mckenna MD Cholesterol.total/ Cholesterol in HDL [Mass ratio] 2.7 {ratio} Normal <5.0 [facility] Comment on above: Order Comment: FASTI NG:YES FASTING: YES Performed By: #### 1 0231, 905, 7600 #### [facility] [address], [address] [place] [address] [employer]: Juan Mckenna MD NON HDL CHOLESTEROL 106 mg/dL (calc) Normal <130 [facility] Comment on above: Order Comment: FASTI NG:YES FASTING: YES Result Comment: For patients with diabetes plus 1 major ASCVD risk factor, treating to a non-HDL-C goal of <100 mg/dL (LDL-C of <70 mg/dL) is considered a therapeutic option. Performed By: #### 1 0231, 905, 7600 #### [facility] [address], [address] [place] [address] [employer]: Juan Mckenna MD Triglyceride [Mass/Vol] 75 mg/dL Normal <150 [facility] Comment on above: Order Comment: FASTI NG:YES FASTING: YES Performed By: #### 1 0231, 905, 7600 #### [facility] [address], [address] [place] [address] [employer]: Juan Mckenna MD URIC ACIDon 02-07-2025 Urate [Mass/Vol] 5.5 mg/dL Normal 4.0-8.0 [facility] Comment on above: Result Comment: Ther apeutic target for gout patients: <6.0 mg/dL Performed By: #### 1 0231, 905, 7600 #### [facility] [address], [address] [place] [address] [employer]: Juan Mckenna MD HEMOGLOBIN A1con 10-18-2024 HEMOGLOBIN A1c 9.6 % of total Hgb High <5.7 [facility] Comment on above: Order Comment: FASTI NG:YES FASTING: YES Result Comment: For someone without known diabetes, a hemoglobin A1c value of 6.5% or greater indicates that they may have diabetes and this should be confirmed with a follow-up test. For someone with known diabetes, a value <7% indicates that their diabetes is well controlled and a value greater than or equal to 7% indicates suboptimal control. A1c targets should be individualized based on duration of diabetes, age, comorbid conditions, and other considerations. Currently, no consensus exists regarding use of hemoglobin A1c for diagnosis of diabetes for children. Performed By: #### 4 96 #### [facility] [address], [address] [place] [address] [employer]: Juan Mckenna MD XR Spine Lumbar 4+ Views*on 07-05-2022 XR Spine Lumbar 4+ Views* FINDINGS: Mild thoracolumbar scoliosis. Mild disc space loss throughout the lumbar spine. Moderate anterior and posterior osteophyte formation L4-5 and to a lesser extent L-5-S1. Sclerosis involves posterior elements of the mid and distal lumbar spine and sacroiliac joints; however, no spondylolysis or spondylolisthesis is seen. No acute fracture is identified. Soft tissues are relatively unremarkable. IMPRESSION: Diffuse arthritis, probable multilevel distal lumbar stenosis. Report reported and signed by Fabian Hollis on 07/06/2022 0723 Normal [facility] First Assistant Manager ASYMPTOMATIC COVID-19 ANTIGE Non 04-13-2022 EUA Statement SEE BELOW Normal [facility] Comment on above: Result Comment: This test has not been FDA cleared or approved, but has been authorized by the FDA under an Emergency Use Authorization (EUA) for use by authorized laboratories certified under CLIA that meet the requirements to perform moderate or high complexity testing. This test has been authorized only for the detection of proteins from SARS-CoV-2, not for any other viruses or pathogens. The emergency use of this test is authorized for the duration of the declaration that circumstances exist justifying the authorization of emergency use of in vitro diagnostic tests for detection and/or diagnosis of Covid-19 under section 564(b)(1) of the Act, 21 U.S.C. 360bbb-3(b)(1), unless the declaration is terminated or authorization is revoked sooner. Performed By: #### C VDAGA #### [facility] [address] [place] [address] Dr. Reza Tomas SARS-CoV-2 (COVID-19) RNA KULWANT+probe Ql (Unsp spec) Negative Normal NEGATIVE [facility] Comment on above: Result Comment: Nega tive results are presumptive. They do not preclude infection and should not be used as the sole basis for treatment decisions. Additional confirmatory testing by a molecular method should be considered. Performed By: #### C VDAGA #### [facility] [address] [place] [address] Dr. Reza Tomas MRI Knee w/o Righton 022 MRI Knee w/o Right HISTORY: Medial knee pain. COMPARISON: None available TECHNIQUE: Multiplanar multisequence MRI of the right knee was performed without contrast. FINDINGS: Quadriceps and patellar tendons are intact. Small knee joint effusion. The anterior ligament and posterior cruciate ligament are intact. The medial collateral ligament, lateral collateral ligament, and popliteus myotendinous unit are intact. Complex tear of the body through posterior horn of the medial meniscus. Horizontal tear of the body through posterior horn of the lateral meniscus. There are several tiny partial-thickness cartilage defects involving all compartments without subchondral bone marrow edema. Popliteal fossa structures are intact. Daley's cyst measures approximately 2.5 cm in AP dimension by 3.5 cm in transverse dimension by 5.5 cm in craniocaudal dimension with rupture inferiorly. IMPRESSION: Complex tear of the body through posterior horn of the medial meniscus. Horizontal tear of the body through posterior horn of the lateral meniscus. Mild osteoarthritis. Report reported and signed by Derek Vaca on 03/28/2022 1513 Normal [facility] First Assistant Manager XR Chest 2 Views*on 03-06-20 22 XR Chest 2 Views* HISTORY: Cough, fatigue, COVID (2 months) FINDINGS: Comparison is made with the prior examination of January 29, 2020. Diffuse interstitial prominence, mild progression since the December 2019 examination. No calcified pleural plaques. Slight pleural thickening within the left lower chest, which may be accentuated by slight rightward rotation, minimal change from the prior examination. No parenchymal consolidation, pulmonary edema or pleural effusion. Stable mild bilateral paratracheal soft tissue fullness. No significant hilar lymphadenopathy. IMPRESSION: Diffuse interstitial prominence, progression from December 2019. Overall appearance can be consistent with interstitial pneumonia/COVID versus interstitial lung disease. Report reported and signed by Fabian Hollis on 03/06/2022 1006 Normal [facility] Specialist COVID Quick Testingon 2021 Result Positive [facility] Other US Aorta Screeningon 022 US Aorta Screening FINDINGS: Proximal Aorta2.0 x 2.2 cm Mid Aorta1.8 x 2.2 cm Distal Aorta1.9 x 1.7 cm Right Common Iliac11 x 12 mm Left Common Iliac9 x 12 mm No aneurysmal dilatation is identified. No neighboring fluid collections are seen. IMPRESSION: No significant aneurysmal formation. Report reported and signed by Fabian Hollis on 01/11/2022 1008 Normal [facility] Specialist Hemoglobin A1Con 11-24-2021 EAG 168.55 Normal [facility] Specialist Comment on above: Performed By: #### A 1C #### [facility] [address] [place], [place] [id number] HbA1c (Bld) [Mass fraction] 7.5 % High 4.0-6.0 [facility] First Assistant Manager Comment on above: Performed By: #### A 1C #### [facility] [address] [place], [place] [id number] COVID Quick Testingon 2020 Result Negative [facility] Other Vital Signs Date Time Vital Sign Value Performing Clinician Facility 02-24-2025 08:31-0400 Body height 180.3 cm Sushil Pak MD Work Phone: [facility] 02-24-2025 08:31-0400 Body mass index (BMI) [Ratio] 33.05 kg/m2 Sushil Pak MD Work Phone: [facility] 02-24-2025 08:31-0400 Body weight 107.5 kg Sushil Pak MD Work Phone: [facility] 02-24-2025 08:31-0400 Diastolic blood pressure 86 mm[Hg] Sushil Pak MD Work Phone: [facility] 02-24-2025 08:31-0400 Heart rate 82 /min Sushil Pak MD Work Phone: [facility] 02-24-2025 08:31-0400 SaO2% (BldA) [Mass fraction] 96 % Sushil Pak MD Work Phone: [facility] 02-24-2025 08:31-0400 Systolic blood pressure 138 mm[Hg] Sushil Pak MD Work Phone: [facility] 10-22-2024 10:26-0500 Body height 180.3 cm Sushil Pak MD Work Phone: [facility] 10-22-2024 10:26-0500 Body mass index (BMI) [Ratio] 31.8 kg/m2 Sushil Pak MD Work Phone: [facility] 10-22-2024 10:26-0500 Body weight 103.42 kg Sushil Pak MD Work Phone: [facility] 10-22-2024 10:26-0500 Diastolic blood pressure 72 mm[Hg] Sushil Pak MD Work Phone: [facility] 10-22-2024 10:26-0500 Heart rate 96 /min Sushil Pak MD Work Phone: [facility] 10-22-2024 10:26-0500 SaO2% (BldA) [Mass fraction] 97 % Sushil Pak MD Work Phone: [facility] 10-22-2024 10:26-0500 Systolic blood pressure 124 mm[Hg] Sushil Pak MD Work Phone: [facility] 07-21-2024 09:54-0400 Body height 180.3 cm Sushil Pak MD Work Phone: [facility] 07-21-2024 09:54-0400 Body mass index (BMI) [Ratio] 33.19 kg/m2 Sushil Pak MD Work Phone: [facility] 07-21-2024 09:54-0400 Body weight 107.96 kg Sushil Pak MD Work Phone: [facility] 07-21-2024 09:54-0400 Diastolic blood pressure 82 mm[Hg] Sushil Pak MD Work Phone: [facility] 07-21-2024 09:54-0400 Heart rate 84 /min Sushil Pak MD Work Phone: [facility] 07-21-2024 09:54-0400 SaO2% (BldA) [Mass fraction] 97 % Sushil Pak MD Work Phone: [facility] 07-21-2024 09:54-0400 Systolic blood pressure 140 mm[Hg] Sushil Pak MD Work Phone: [facility] 03-16-2024 09:51-0400 Body height 177.8 cm [facility] 03-16-2024 09:51-0400 Body mass index (BMI) [Ratio] 34.4 kg/m2 [facility] 03-16-2024 09:51-0400 Body temperature 98.5 [degF] [facility] 03-16-2024 09:51-0400 Body weight 108.86 kg [facility] 03-16-2024 09:51-0400 Diastolic blood pressure 62 mm[Hg] [facility] 03-16-2024 09:51-0400 Heart rate 85 /min [facility] 03-16-2024 09:51-0400 Respiratory rate 18 /min [facility] 03-16-2024 09:51-0400 SaO2% (BldA) [Mass fraction] 96 % [facility] 03-16-2024 09:51-0400 Systolic blood pressure 110 mm[Hg] [facility] 02-04-2022 11:30-0400 Body height 177.8 cm Danelle Parkault Other [facility] [employer] Other 02-04-2022 11:30-0400 Body mass index (BMI) [Ratio] 38.74 kg/m2 Danelle Ricardo Other [facility] Other 02-04-2022 11:30-0400 Body temperature 98.2 [degF] Danelle Silva Other [facility] Other 02-04-2022 11:30-0400 Body weight 122.47 kg Danelle Silva Other [facility] Other 02-04-2022 11:30-0400 SaO2% (BldA) [Mass fraction] 91 % Danelle Parkault Other [facility] Other 09-23-2021 11:45-0500 Body height 177.8 cm Essence Ledezma Other [facility] Other 09-23-2021 11:45-0500 Body mass index (BMI) [Ratio] 38.74 kg/m2 Essence Ledezma Other [facility] Other 09-23-2021 11:45-0500 Body temperature 98.6 [degF] Essence Ledezma Other [facility] Other 09-23-2021 11:45-0500 Body weight 122.47 kg Essence Ledezma Other [facility] Other 09-23-2021 11:45-0500 SaO2% (BldA) [Mass fraction] 94 % Essence Ledezma Other [facility] Other 07-19-2021 10:45-0400 Body height 177.8 cm Danelle Silva Other [facility] Other 07-19-2021 10:45-0400 Body mass index (BMI) [Ratio] 38.74 kg/m2 Danelle Parkault Other [facility] Other 07-19-2021 10:45-0400 Body temperature 97.1 [degF] Danelle Parkault Other [facility] Other 07-19-2021 10:45-0400 Body weight 122.47 kg Danelle Parkault Other [facility] Other 07-19-2021 10:45-0400 Respiratory rate 18 /min Danelle Parkault Other [facility] Other 07-19-2021 10:45-0400 SaO2% (BldA) [Mass fraction] 97 % Danelle Ricardo Other [facility] Other Encounters Encounter Date Encounter Type Care Provider Facility Start: 02-24-2025 End: 02-24-2025 Cathy Pak MD Work Phone: [facility] Start: 02-24-2025 End: 02-24-2025 Bamboo flowsstormy Pak MD Work Phone: [facility] Start: 02-24-2025 End: 02-24-2025 Office outpatient visit 25 minutes Sushil Pak MD Work Phone: [facility] Comment on above: Benign essential hyp ertension (CMS/HCC) (Primary Dx); Hypertensive nephropathy (CMS/HCC); Microalbuminuria; Diabetic nephropathy associated with type 2 diabetes mellitus (HCC) (CMS/HCC); Type 2 diabetes mellitus with hyperglycemia, without long-term current use of insulin (CMS/HCC); Type 2 diabetes mellitus with both eyes affected by mild nonproliferative retinopathy without macular edema, without long-term current use of insulin (CMS/HCC); Hyperuricemia; Former cigarette smoker; Non morbid obesity due to excess calories Start: 02-24-2025 End: 02-24-2025 ambulatory SUSHIL PAK Not Available Start: 01-14-2025 End: 01-14-2025 Orders Only Sushil Pak MD Work Phone: [facility] Start: 12-22-2024 End: 12-22-2024 ambulatory SUSHIL PAK Not Available Start: 10-22-2024 End: 10-22-2024 Bamboo esteban Pak MD Work Phone: [facility] Start: 10-22-2024 End: 10-22-2024 Bamboo flowsstormy Pak MD Work Phone: [facility] Start: 10-22-2024 End: 10-22-2024 Office outpatient visit 25 minutes Sushil Pak MD Work Phone: [facility] Comment on above: Benign essential hyp ertension (CMS/HCC); Microalbuminuria; Type 2 diabetes mellitus with hyperglycemia, without long-term current use of insulin (CMS/HCC); Type 2 diabetes mellitus with both eyes affected by mild nonproliferative retinopathy without macular edema, without long-term current use of insulin (CMS/HCC); Hyperuricemia; Morbid obesity due to excess calories (CMS/HCC); Former cigarette smoker Start: 10-22-2024 End: 10-22-2024 ambulatory SUSHIL PAK Not Available Start: 10-14-2024 End: 10-14-2024 Bamboo flowsstormy Pak MD Work Phone: [facility] Start: 10-14-2024 End: 10-14-2024 Bamboo flowsheet Sushil Pak MD Work Phone: [facility] Start: 10-14-2024 End: 10-14-2024 Office outpatient visit 15 minutes Sushil Pak MD Work Phone: [facility] Comment on above: Bronchitis (Primary Dx); Type 2 diabetes mellitus with hyperglycemia, without long-term current use of insulin (CMS/HCC) Start: 10-14-2024 End: 10-14-2024 ambulatory SUSHIL PAK Not Available Start: 07-21-2024 End: 07-21-2024 Bamboo esteban Pak MD Work Phone: [facility] Start: 07-21-2024 End: 07-21-2024 Bamboo esteban Pak MD Work Phone: [facility] Start: 07-21-2024 End: 07-21-2024 Office outpatient visit 25 minutes Sushil Pak MD Work Phone: [facility] Comment on above: Type 2 diabetes roma itus with hyperglycemia, without long-term current use of insulin (CMS/HCC) (Primary Dx); Benign essential hypertension (CMS/HCC); Hyperuricemia; Non-alcoholic fatty liver disease; Class 1 obesity due to excess calories with serious comorbidity and body mass index (BMI) of 33.0 to 33.9 in adult Start: 07-21-2024 End: 07-21-2024 ambulatory SUSHIL PAK Not Available Start: 07-17-2024 End: 07-17-2024 Refill Sushil Pak MD Work Phone: [facility] Start: 03-16-2024 End: 03-16-2024 ambulatory [facility] Work Phone: Start: 03-16-2024 End: 03-16-2024 Patient encounter procedure [facility] Work Phone: Start: 03-11-2024 End: 03-11-2024 ambulatory SUSHIL PAK Not Available Start: 04-14-2022 Encounter for preprocedural laboratory examination DR MALACHI PENA [facility] Start: 04-13-2022 End: 04-14-[address] SUSHIL PAK Facility:[facility] Start: 04-13-2022 End: 04-14-2022 Encounter for preprocedural laboratory examination DR SUSHIL PAK Facility:[facility] Start: 02-04-2022 End: 02-04-2022 ambulatory Danelle Silva Other [facility] Other Start: 02-04-2022 Office outpatient vi sit 15 minutes Danelleevelina Silva [facility] Start: 09-23-2021 End: 09-23-2021 ambulatory Essenceamandeep Ledezma Other [facility] Other Start: 09-23-2021 Office outpatient vi sit 15 minutes Essence Brisa [facility] Start: 07-19-2021 Office outpatient vi sit 15 minutes Danelleprabhjot Silva [facility] Procedures Date Procedure Procedure Detail Performing Clinician Start: 11-05-2019 Colonoscopy Sushil perez MD Work Phone: Plan of Treatment Date Care Activity Detail Author Start: 11-05-2029 Screening for malignant neoplasm of colon [facility] Start: 02-20-2026 Urine screening for protein Diabetes: Urine Protein Screening [facility] Start: 10-17-2025 Glaucoma screening Diabetes: Retinopathy Screening [facility] Start: 05-23-2025 Hemoglobin A1c measurement Diabetes: Hemoglobin A1C [facility] Start: 04-26-2025 End: 02-24-2026 Hemoglobin A1c/Hemoglobin.total in Blood Hemoglobin A1c Lab Routine Type 2 diabetes mellitus with hyperglycemia, without long-term current use of insulin (CMS/HCC) Expected: 04/26/2025, Expires: 02/24/2026 [facility] Work Phone: Comment on above: Expected: 04/26/2025, Expires: Start: 02-24-2025 End: 02-24-2025 Patient encounter procedure 02/24/2025 8:30 AM EDT Office Visit [facility] [address] [place] [address] Sushil Pak MD [address] [place] [address] Benign essential hypertension (CMS/HCC); Microalbuminuria; Type 2 diabetes mellitus with both eyes affected by mild nonproliferative retinopathy without macular edema, without long-term current use of insulin (CMS/HCC); Hyperuricemia; Former cigarette smoker; Non morbid obesity due to excess calories [facility] Comment on above: Benign essential hypertension (CMS/HCC); Microalbuminuria; Type 2 diabetes mellitus with both eyes affected by mild nonproliferative retinopathy without macular edema, without long-term current use of insulin (CMS/HCC); Hyperuricemia; Former cigarette smoker; Non morbid obesity due to excess calories Start: 02-10-2025 End: 02-10-2025 Patient encounter procedure 02/10/2025 10:00 AM EDT Office Visit [facility] [address] [place] [address] Sushil Pak MD [address] [place] [address] (Fax) [facility] Start: 02-03-2025 End: 02-03-2025 Patient encounter procedure 02/03/2025 10:00 AM EDT Office Visit [facility] [address] [place] [address] Sushil Pak MD [address] [place] [address] (Fax) [facility] Start: 01-15-2025 Hemoglobin A1c measurement Diabetes: Hemoglobin A1C [facility] Start: 12-10-2024 Urine screening for protein Diabetes: Urine Protein Screening [facility] Start: 10-22-2024 End: 10-22-2024 Patient encounter procedure [facility] Comment on above: Benign essential hypertension ([facility]); Microalbuminuria; Type 2 diabetes mellitus with both eyes affected by mild nonproliferative retinopathy without macular edema, without long-term current use of insulin ([facility]); Hyperuricemia; Former cigarette smoker; Morbid obesity due to excess calories ([facility]) Start: 10-18-2024 Hemoglobin A1c measurement Diabetes: Hemoglobin A1C [facility] Start: 10-15-2024 End: 10-15-2024 Patient encounter procedure 10/15/2024 10:00 AM EST Office Visit [facility] [address] [place] [address] Sushil Pak MD [address] [place] [address] (Fax) [facility] Start: 10-14-2024 End: 10-14-2024 Patient encounter procedure 10/14/2024 11:45 AM EST Office Visit [facility] [address] [place] [address] Sushil Pak MD [address] [place] [address] (Fax) Arrived [facility] Comment on above: Arrived Start: 10-10-2024 Glaucoma screening Diabetes: Retinopathy Screening [facility] Start: 09-20-2024 End: 07-21-2025 Hemoglobin A1c/Hemoglobin.total in Blood Hemoglobin A1c Lab Routine Type 2 diabetes mellitus with hyperglycemia, without long-term current use of insulin ([facility]) Expected: 09/20/2024 (Approximate), Expires: 07/21/2025 [facility] Work Phone: Comment on above: Expected: 09/20/2024 (Approximate), Expi res: 07/21/2025 Start: 07-21-2024 End: 07-21-2024 Patient encounter procedure [facility] Comment on above: Arrived Start: 06-05-2024 Hemoglobin A1c measurement Diabetes: Hemoglobin A1C [facility] Start: 1950 Screening for malignant neoplasm of colon [facility] Payers Date Payer Category Payer Medicare (Managed Care) [employer] [id number] 1959 Medicare [id number] 1950 Unknown [id number] 1950 Unknown [id number] 1950 Unknown [id number] 1950 Unknown [id number] 1950 Unknown [id number] 1950 Unknown [id number] 1950 Unknown [id number] Medicare [id number] Medicare Medicare [id number] Unknown [id number] Unknown Cheo ANABELA/RAISSA [id number] Social History Date Type Detail Facility Unknown if ever smoked [facility] Other Start: 08-03-2023 End: 02-04-2025 Sex Assigned At [facility] Start: 03-16-2024 Tobacco smoking status [facility] Never smoked tobacco (finding) [facility] Start: 1950 Sex Assigned At Male [facility] Start: 03-11-2024 Tobacco smoking status [facility] Ex-smoker [facility] Start: 10-01-1965 End: 10-01-1990 History of tobacco use Current smoker [facility] Start: 10-01-1965 End: 10-01-1990 History of tobacco use Cigarette Smoker [facility] Start: 03-11-2024 End: 02-04-2025 Cigarettes smoked current (pack per day) - Reported 1 [facility] Start: 03-11-2024 Tobacco use and exposure Smokeless tobacco non-user [facility] Start: 03-11-2024 End: 02-24-2025 Alcoholic beverage intake Ex-drinker (finding) [facility] Within the last year , have you been afraid of your partner or ex-partner? No [facility] Do you belong to any clubs or organizations such as druze groups, unions, fraternal or athletic groups, or school groups? Yes [facility] Are you now , , , , never or living with a partner? [facility] How often to you hav e a drink containing alcohol? Never [facility] How many standard dr inks containing alcohol do you have on a typical day? Patient does not drink [facility] How hard is it for y ou to pay for the very basics like food, housing, medical care, and heating Not very hard [facility] Do you feel stress - tense, restless, nervous, or anxious, or unable to sleep at night because your mind is troubled all the time - these days [OSQ] Only a little [facility] (I/We) worried jones er (my/our) food would run out before (I/we) got money to buy more. Never true [facility] Start: 12-26-2023 Tobacco Comment Quit 1990 [facility] Start: 12-10-2023 Alcohol Comment Caffeine intake ; 1-2 cups perday coffee [facility] Start: 12-13-2022 Gender identity Identifies as male gender (finding) [facility] Start: 08-04-2023 Sexual orientation Heterosexual (finding) [facility] How often do you nee d to have someone help you when you read instructions, pamphlets, or other written material from your doctor or pharmacy [SILS] Rarely [facility] How often do you hav e 6 or more drinks on 1 occasion? Daily or almost daily [facility] Do you feel stress - tense, restless, nervous, or anxious, or unable to sleep at night because your mind is troubled all the time - these days [OSQ] Not at all [facility] Medical Equipment Procedure Code Equipment Code Equipment Origin al Text Equipment Identifier Dates Blood Sugar Diagnostic (True Metrix Glucose Test Strip) strip Start: 03-16-2024 Lancets (Unilet Super Thin Lancets) 30 gauge misc Start: 03-16-2024 [id number] Start: 11-24-2022 End: 11-18-2025 Use to inject 1 time daily as directed. [id number] Start: 11-18-2024 End: 11-18-2025 Functional Status Date Assessment Result Facility 02-24-2025 Patient Health [facility] ionnaire 2 item (PHQ-2) [Reported] [facility] Clinical Notes 07-19-2021 to 02-24-2025 Sushil Pak MD - 02/24/2025 8:30 AM Logan Pak MD - 01/14/2025 10:48 AM Logan Pak MD - 10/22/2024 10:30 AM Marlene Pak MD - 10/14/2024 11:45 AM EST Note Date & Type Note Facility 02-24-2025 History of Present illness Narrative Images from the original note were not included. Patient ID: Gregorio Kirkland is a 74 y.o. male who presents for: Diabetes Mellitus Patient presents for follow up of diabetes. Current symptoms include: paresthesia of the feet. Symptoms have stabilized. Patient denies increased appetite and visual disturbances. Evaluation to date has included: fasting blood sugar, fasting lipid panel, hemoglobin A1C, and microalbuminuria. Home sugars: says he is checking 2-3 times per week when he can . Hypertension Patient is here for follow-up of elevated blood pressure. He is exercising and is adherent to a low-salt diet. Blood pressure is not checking at home. Cardiac symptoms: none. Patient denies chest pain, dyspnea, irregular heart beat, lower extremity edema, and palpitations. Cardiovascular risk factors: advanced age (older than 55 for men, 65 for women), diabetes mellitus, hypertension, male gender, microalbuminuria, obesity (BMI >= 30 kg/m2), and smoking/ tobacco exposure. Use of agents associated with hypertension: none. History of target organ damage: none. 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 The patient reports no acute gout attacks since last clinic visit. Patient reports his/her chronic pain is stable, his joint stiffness is stable and his/her joint swelling is stable. Limitation on activities include none. Review of Systems Constitutional: Negative for activity change and fatigue. Respiratory: Negative for cough, shortness of breath and wheezing. Cardiovascular: Negative for chest pain, palpitations and leg swelling. Neurological: Negative for light-headedness and headaches. Objective The patient is pleasant and in no acute distress. The neck is supple and trachea is midline. No masses are appreciated. The heart is regular rate and rhythm without S3, S4. No murmur. The patient has normal respiratory pattern. The breath sounds are symmetrical without evidence of rhonchi or rales. No wheezing. The skin is warm and dry. The lower extremities have trace edema. The patient has good eye contact and speech is clear. Appropriate affect. 01/15/2023 12:00 PM 12/26/2023 9:55 AM 03/11/2024 10:28 AM 07/21/2024 9:54 AM 10/22/2024 10:26 AM 12/22/2024 10:06 AM 02/24/2025 8:31 AM Vitals BMI 33.47 kg/m2 32.43 kg/m2 34.03 kg/m2 33.19 kg/m2 31.8 kg/m2 32.78 kg/m2 33.05 kg/m2 BSA (m2) 2.34 m2 2.29 m2 2.36 m2 2.33 m2 2.27 m2 2.32 m2 2.33 m2 Systolic 126 138 144 140 124 124 138 Diastolic 72 86 86 82 72 72 86 Heart Rate 76 85 84 96 91 82 SpO2 98 % 98 % 97 % 97 % 96 % 96 % Height (in) Weight (lb) 240 232.5 244 238 228 235 237 Visit Report Report Report Report Report Report Report Component Ref Range & Units 4 d ago (02/20/25) 4 mo ago (10/17/24) 7 mo ago (07/18/24) 11 mo ago (03/05/24) 1 yr ago (12/07/23) 2 yr ago (08/16/22) 2 yr ago (07/03/22) Hemoglobin A1C <5.7 % 8.5 High 9.6 High R, CM 11.6 High R, CM 9.0 High R, CM 9.9 High R, CM Reviewed averages on his phone. Only 1 episode of hypoglycemia No Known Allergies Current Outpatient Medications on File Prior to Visit Medication Sig Dispense Refill aspirin 81 MG EC tablet Take 81 mg by mouth every other day. Blood Glucose Monitoring Suppl (True Metrix Meter) w/Device kit USE DIRECTED to check BLOOD SUGAR TWICE DAILY Continuous Glucose General Surgery Physician Assistant (FreeStyle Bridger 3 Toluca) device 1 Device See administration instructions Using Bridger 3 plus sensors 1 each 0 insulin degludec (Tresiba FlexTouch) 100 UNIT/ML injection Inject 10 Units under the skin Daily 15 mL 0 insulin pen needle 31G X 8 mm misc Use to inject 1 time daily as directed. 100 each 0 Lancets (OneTouch Delica Plus [id number]) misc USE DIRECTED TWICE DAILY and NEEDED 200 each 3 OneTouch Verio test strip 1 each by Other route in the morning and 1 each before bedtime. semaglutide (Rybelsus) 14 MG tablet Take 1 tablet (14 mg) by mouth in the morning. Take before meals. 30 tablet 0 [DISCONTINUED] allopurinol (Zyloprim) 100 MG tablet Take 1 tablet (100 mg) by mouth Daily 90 tablet 1 [DISCONTINUED] Continuous Glucose Sensor (FreeStyle Bridger 3 Plus Sensor) misc Inject 1 Device into the skin Every 15 Days 6 each 3 [DISCONTINUED] losartan (Cozaar) 50 MG tablet Take 1 tablet (50 mg) by mouth in the morning. 90 tablet 1 [DISCONTINUED] metFORMIN XR (Glucophage-XR) 750 MG 24 hr tablet Take 1 tablet (750 mg) by mouth in the morning and 1 tablet (750 mg) before bedtime. Do not crush, chew, or split.. 180 tablet 1 No current facility-administered medications on file prior to visit. 1. Benign essential hypertension (CMS/HCC) (Primary) Chronic problem, stable, to goal. - losartan (Cozaar) 50 MG tablet; Take 1 tablet (50 mg) by mouth in the morning. Dispense: 90 tablet; Refill: 1 2. Hypertensive nephropathy (CMS/HCC) New, Chronic problem, unstable, demonstrating end organ damage from their current state of health. I discussed the pathology and natural progression of this problem is related to their current health status. I stressed the importance of keeping blood pressure and blood sugar to goal, staying well hydrated, avoiding NSAIDs, and aerobic exercises as tolerated. Continue to monitor longitudinally. 3. Microalbuminuria Chronic problem, defining an aspect the nephropathy, with significant risk, uncertain progression requiring longitudinal monitoring, and moderate decision making. Microalbuminuria describes a moderate increase in the level of urine albumin. Normally, the kidneys filter albumin, so if the kidney leaks small amounts of albumin into the urine then it is a indicator of chronic kidney disease. Microalbuminuria is an independent indicator of increased cardiovascular risk among individuals and therefore can be used for risk stratification for cardiovascular disease. 4. Diabetic nephropathy associated with type 2 diabetes mellitus (HCC) (CMS/HCC) As noted above initial diabetic nephropathy 5. Type 2 diabetes mellitus with hyperglycemia, without long-term current use of insulin (CMS/HCC) Chronic problem, unstable, not to goal. I did discuss with him again that has been over a year since he has been to goal. He is still fully acknowledges that he has been going to many parties and eating cake and ice cream. He eats eats ice cream spontaneously also. We talked about his options including full 4 times a day insulin therapy that he does not want to do. He also really did not want to change his diabetic regimen. But I suspect he does not have much of a regimen. I convinced him to stay on the once a day insulin, but we are going to start utilizing sliding scale. See the scanned document. For now I am going to start him on a sliding scale. - metFORMIN XR (Glucophage-XR) 750 MG 24 hr tablet; Take 1 tablet (750 mg) by mouth in the morning and 1 tablet (750 mg) before bedtime. Do not crush, chew, or split. Dispense: 180 tablet; Refill: 1 - Hemoglobin A1c; Future - Hemoglobin A1c 6. Type 2 diabetes mellitus with both eyes affected by mild nonproliferative retinopathy without macular edema, without long-term current use of insulin ([facility]) He has been out of his glucose sensor for 2 full weeks or more. - Continuous Glucose Sensor (FreeStyle Bridger 3 Plus Sensor) [facility]; Inject 1 Device into the skin Every 15 Days Dispense: 6 each; Refill: 3 7. Hyperuricemia In prescribing a renewal to their current medication, consideration of the following encompasses moderate decision making; the current prescriptions and supplements, the current allergies and medication intolerances, current medical conditions, and potential drug interactions. The patient was given a chance to ask questions today and all questions were answered. - allopurinol (Zyloprim) 100 MG tablet; Take 1 tablet (100 mg) by mouth Daily Dispense: 90 tablet; Refill: 1 8. Former cigarette smoker Chronic problem that is unstable. The patient continues to use tobacco products or nicotine. Your goal is to quit using tobacco or vapor, as it significantly worsens health risks and complicates treatments. The patient was given a chance to ask questions and they declined medical intervention. Hebert 5 minutes was spent on counseling 9. Non morbid obesity due to excess calories Really encouraged lifestyle activities. documented in this encounter [facility] 01-14-2025 History of Present illness Narrative The letter is generated. A front to Dotty. documented in this encounter [facility] 10-22-2024 History of Present illness Narrative Images from the original note were not included. Patient ID: Gregorio Kirkland is a 74 y.o. male who presents for: Diabetes Mellitus Patient presents for follow up of diabetes. Current symptoms include: none. Symptoms have stabilized. Patient denies increased appetite, paresthesia of the feet, polydipsia, polyuria, and visual disturbances. Evaluation to date has included: hemoglobin A1C. Home sugars: BGs consistently in an acceptable range. Hypertension Patient is here for follow-up of elevated blood pressure. He is exercising and is adherent to a low-salt diet. Blood pressure is well controlled at home. Cardiac symptoms: none. Patient denies chest pain, dyspnea, exertional chest pressure/discomfort, irregular heart beat, lower extremity edema, and palpitations. Cardiovascular risk factors: advanced age (older than 55 for men, 65 for women), diabetes mellitus, hypertension, male gender, and obesity (BMI >= 30 kg/m2). Use of agents associated with hypertension: none. History of target organ damage: none. 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 The patient reports no acute gout attacks since last clinic visit. Attacks occur primarily in the feet a long time . Patient reports his/her chronic pain is stable, his joint stiffness is stable and his/her joint swelling is stable. Limitation on activities include none. Review of Systems Constitutional: Negative for activity change and fatigue. Respiratory: Negative for cough, shortness of breath and wheezing. Cardiovascular: Negative for chest pain, palpitations and leg swelling. Neurological: Negative for light-headedness and headaches. Objective The patient is pleasant and in no acute distress. The neck is supple and trachea is midline. No masses are appreciated. The heart is regular rate and rhythm without S3, S4. No murmur. The patient has normal respiratory pattern. The breath sounds are symmetrical without evidence of rhonchi or rales. No wheezing. The skin is warm and dry. The lower extremities have trace edema. The patient has good eye contact and speech is clear. Appropriate affect. Visit Vitals BP 124/72 Pulse 96 Ht 5' 11 Wt 228 lb SpO2 97% BMI 31.80 kg/m Smoking Status Former BSA 2.27 m Component Ref Range & Units 5 d ago (10/17/24) 3 mo ago (07/18/24) 7 mo ago (03/05/24) 10 mo ago (12/07/23) 2 yr ago (08/16/22) 2 yr ago (07/03/22) Hemoglobin A1C <5.7 % of total Hgb 9.6 High 11.6 High CM 9.0 High CM No Known Allergies Current Outpatient Medications on File Prior to Visit Medication Sig Dispense Refill allopurinol (Zyloprim) 100 MG tablet Take 1 tablet (100 mg) by mouth Daily 90 tablet 0 aspirin 81 MG EC tablet Take 81 mg by mouth every other day. Blood Glucose Monitoring Suppl (True Metrix Meter) w/Device kit USE DIRECTED to check BLOOD SUGAR TWICE DAILY Lancets (Smart Medical SystemsTouch Delica Plus [id number]) misc USE DIRECTED TWICE DAILY and NEEDED 200 each 3 losartan (Cozaar) 50 MG tablet Take 1 tablet (50 mg) by mouth in the morning. 90 tablet 0 metFORMIN XR (Glucophage-XR) 750 MG 24 hr tablet Take 1 tablet (750 mg) by mouth in the morning and 1 tablet (750 mg) before bedtime. Do not crush, chew, or split.. 180 tablet 0 Smart Medical SystemsTouch Verio test strip 1 each by Other route in the morning and 1 each before bedtime. semaglutide (Rybelsus) 14 MG tablet Take 14 mg by mouth in the morning. Take before meals. Do not start before August 11, 2024. [DISCONTINUED] azithromycin (Zithromax) 250 MG tablet Take 2 tablets day one then 1 tablet daily 6 tablet 0 [DISCONTINUED] levoFLOXacin (Levaquin) 750 MG tablet Take 1 tablet (750 mg) by mouth Daily for 7 days 7 tablet 0 [DISCONTINUED] khbuobwhhwglegf-WH-XA (Capmist DM) 60-15-400 MG tablet Take 1 tablet by mouth in the morning and 1 tablet in the evening and 1 tablet before bedtime. Do all this for 10 days. 30 tablet 0 [DISCONTINUED] semaglutide (Rybelsus) 7 MG tablet Take 7 mg by mouth in the morning. Take before meals. Do not start before July 12, 2024. No current facility-administered medications on file prior to visit. 1. Benign essential hypertension (CMS/HCC) Chronic problem, stable, to goal - losartan (Cozaar) 50 MG tablet; Take 1 tablet (50 mg) by mouth in the morning. Dispense: 90 tablet; Refill: 1 2. Microalbuminuria Chronic problem as previously abnormal. We will rechecked later this year. 3. Type 2 diabetes mellitus with hyperglycemia, without long-term current use of insulin ([facility]) We had a rather long discussion today. He is not in to goal in over a year. I do think he is actually trying with his diet and he is losing some weight. With the current medication combination he is on I do suspect he is unable to make enough insulin. Historically he has not been on insulin previously and noted how much easier was to control. Part of the problem is cost. We did have a member of the chronic Care team present in the office today. I was able to get her involved. She believes she will be able get him some support for his insulin and continuous glucose monitoring. Because of the metformin in the right dialysis we will need to proceed slowly with the insulin so as not to cause hypoglycemia. I discussed with him that I fully expect that this dose to not control his blood sugar. I have asked him once he is all set up and get started get me fasting in the morning and before supper readings. Do this for 5 days and then contact us through the portal and I will make adjustments in insulin as we go. All are in agreement. - metFORMIN XR (Glucophage-XR) 750 MG 24 hr tablet; Take 1 tablet (750 mg) by mouth in the morning and 1 tablet (750 mg) before bedtime. Do not crush, chew, or split.. Dispense: 180 tablet; Refill: 1 4. Type 2 diabetes mellitus with both eyes affected by mild nonproliferative retinopathy without macular edema, without long-term current use of insulin ([facility]) In prescribing a new medication consideration of the following encompasses moderate decision making: the current prescriptions and supplements, the current allergies and medication intolerances, the current medical conditions, and potential drug interactions. Risks, benefits, and reason for starting their medication were discussed. The patient was given a chance to ask questions today and all questions were answered. The patient is to contact us if any other questions arise or if any problems occur with the adjustment in their medication. - semaglutide (Rybelsus) 14 MG tablet; Take 1 tablet (14 mg) by mouth in the morning. Take before meals. - Continuous Glucose General Surgery Physician Assistant (vBrandStyle Bridger 3 [place]) device; 1 Device See administration instructions - Continuous Glucose Sensor (FreeStyle Bridger 3 Sensor) misc; Inject 1 Device under the skin every 14 (fourteen) days - insulin degludec (Tresiba FlexTouch) 100 UNIT/ML injection; Inject 10 Units under the skin Daily - insulin pen needle 31G X 8 mm misc; Use to inject 1-4 times daily as directed. 5. Hyperuricemia In prescribing a renewal to their current medication, consideration of the following encompasses moderate decision making; the current prescriptions and supplements, the current allergies and medication intolerances, current medical conditions, and potential drug interactions. Any changes to risks, benefits, and reason for renewing their current medication due to the above were discussed. The patient was given a chance to ask questions today and all questions were answered. The patient is to contact us if any other questions arise or if any problems occur. (Utilizing the original 1994/1996 guidelines or the 2020 office/outpatient code guidelines for selecting the level of E/M service, In both sets of guidelines, prescription drug management appears in the moderate medical decision making (MDM) row. Neither the original guidelines nor the new guidelines state that a new prescription or change is needed in order to credit prescription drug management) - allopurinol (Zyloprim) 100 MG tablet; Take 1 tablet (100 mg) by mouth Daily Dispense: 90 tablet; Refill: 1 6. Morbid obesity due to excess calories (CMS/HCC) Improving slowly. He is actually almost out of the obesity range. He is only morbid obese because of his comorbid conditions. Encouraged to continue his efforts. 7. Former cigarette smoker He has no interest in start smoking again. documented in this encounter [facility] 10-14-2024 History of Present illness Narrative Images from the original note were not included. Patient ID: Gregorio Kirkland is a 74 y.o. male who presents for: URI symptoms for 10 to 14 days. He thought it was viral and he would ultimately get over it but he is just not improving and now is seeking evaluation and treatment. Complains of paroxysms of cough. Intermittently sputum is colored. Complains of significant nasal congestion which is not improving with zstl-let-zicxleo medication. Notes he has maxillary pain. Had fever and chills early on but is denying them at this time. Denies ear pain. Notes some postnasal drip but otherwise no specific sore throat. Review of Systems No nausea vomiting diarrhea. Objective In general the patient is pleasant and in no acute distress. Bilateral ears, canals are within normal limits. Right TM is transparent and somewhat retracted. Left TM is transparent and somewhat retracted. No fluid layer. Bilateral nares demonstrate inflamed mucosa. Oropharynx has moist mucosa there is no specific evidence of thrush. There is mild erythema of the pharynx. Shoddy bilateral anterior cervical adenopathy. No signs of respiratory distress. Patient is speaking full sentences. There are Course but symmetrical breath sounds. No rhonchi or rales are appreciated. No wheezes. Skin is warm and dry Visit Vitals Smoking Status Former No Known Allergies Current Outpatient Medications on File Prior to Visit Medication Sig Dispense Refill allopurinol (Zyloprim) 100 MG tablet Take 1 tablet (100 mg) by mouth Daily 90 tablet 0 aspirin 81 MG EC tablet Take 81 mg by mouth every other day. azithromycin (Zithromax) 250 MG tablet Take 2 tablets day one then 1 tablet daily 6 tablet 0 Blood Glucose Monitoring Suppl (True Metrix Meter) w/Device kit USE DIRECTED to check BLOOD SUGAR TWICE DAILY Lancets (Smart Medical SystemsTouch Delica Plus [id number]) [facility] TWICE DAILY and NEEDED 200 each 3 losartan (Cozaar) 50 MG tablet Take 1 tablet (50 mg) by mouth in the morning. 90 tablet 0 metFORMIN XR (Glucophage-XR) 750 MG 24 hr tablet Take 1 tablet (750 mg) by mouth in the morning and 1 tablet (750 mg) before bedtime. Do not crush, chew, or split.. 180 tablet 0 OneTouch Verio test strip 1 each by Other route in the morning and 1 each before bedtime. semaglutide (Rybelsus) 14 MG tablet Take 14 mg by mouth in the morning. Take before meals. Do not start before August 11, 2024. semaglutide (Rybelsus) 7 MG tablet Take 7 mg by mouth in the morning. Take before meals. Do not start before July 12, 2024. No current facility-administered medications on file prior to visit. 1. Bronchitis (Primary) Long-term problem. The health department recently issued a mycoplasma warning. We will make sure that we cover atypical bacteria and start him on levofloxacin. In prescribing a new medication consideration of the following encompasses moderate decision making: the current prescriptions and supplements, the current allergies and medication intolerances, the current medical conditions, and potential drug interactions. Risks, benefits, and reason for starting their medication were discussed. The patient was given a chance to ask questions today and all questions were answered. The patient is to contact us if any other questions arise or if any problems occur with the adjustment in their medication. 2. Type 2 diabetes mellitus with hyperglycemia, without long-term current use of insulin ([facility]) Historically is not been to A1c goal. Discussed with him that this will worsened while he is ill and encouraged him to avoid the sweets. Comorbid condition Chronic problem The patient meets the criteria for polypharmacy; 5 or more prescriptions or multi-morbidity defined as 5 or more diagnoses. Polypharmacy can significantly increase the risk of preventable adverse drug events and negatively impact adherence. Consideration of diverse factors such as clinician agreement, patient perspective, and de-prescribing, as appropriate can improve patient outcomes while simplifying care. This requires longitudinal monitoring as there is at least a moderate risk of morbidity and requires at least a moderate degree of evaluation and management. documented in this encounter [facility] 07-21-2024 History of Present illness Narrative Images from the original note were not included. Patient ID: Gregorio Kirkland is a 73 y.o. male who presents for: Diabetes Mellitus Patient presents for follow up of diabetes. Current symptoms include: polyuria and visual disturbances. Symptoms have stabilized. Patient denies increased appetite, nausea, paresthesia of the feet, and polydipsia. Evaluation to date has included: hemoglobin A1C. Home sugars: BGs are high in the morning. Hypertension Patient is here for follow-up of elevated blood pressure. He is exercising and is adherent to a low-salt diet. Blood pressure is not being checked in the home setting. Cardiac symptoms: none. Patient denies chest pain, dyspnea, irregular heart beat, lower extremity edema, and palpitations. Cardiovascular risk factors: advanced age (older than 55 for men, 65 for women), diabetes mellitus, dyslipidemia, hypertension, male gender, and obesity (BMI >= 30 kg/m2). Use of agents associated with hypertension: none. History of target organ damage: none. Hyperlipidemia Pt who presents for follow-up of dyslipidemia. A repeat fasting lipid profile was not done. The patient does not use medications that may worsen dyslipidemias (corticosteroids, progestins, anabolic steroids, diuretics, beta-blockers, amiodarone, cyclosporine, olanzapine). Exercise: daily. Review of Systems Constitutional: Negative for activity change and fatigue. Respiratory: Negative for cough, shortness of breath and wheezing. Cardiovascular: Negative for chest pain, palpitations and leg swelling. Neurological: Negative for light-headedness and headaches. Objective The patient is pleasant and in no acute distress. The neck is supple and trachea is midline. No masses are appreciated. The heart is regular rate and rhythm without S3, S4. No murmur. The patient has normal respiratory pattern. The breath sounds are symmetrical without evidence of rhonchi or rales. No wheezing. The skin is warm and dry. The lower extremities have trace edema. The patient has good eye contact and speech is clear. Appropriate affect. Visit Vitals BP 140/82 Pulse 84 Ht 5' 11 Wt 238 lb SpO2 97% BMI 33.19 kg/m Smoking Status Former BSA 2.33 m Component Ref Range & Units 3 d ago 4 mo ago 7 mo ago 1 yr ago 2 yr ago Hemoglobin A1C <5.7 % of total Hgb 11.6 High 9.0 High CM 9.9 High CM 6.8 High R, CM 6.9 High R, CM No Known Allergies Current Outpatient Medications on File Prior to Visit Medication Sig Dispense Refill allopurinol (Zyloprim) 100 MG tablet Take 100 mg by mouth Daily aspirin 81 MG EC tablet Take 81 mg by mouth every other day. Blood Glucose Monitoring Suppl (True Metrix Meter) w/Device kit USE DIRECTED to check BLOOD SUGAR TWICE DAILY Lancets (Smart Medical SystemsTouch Delica Plus [id number]) mis USE DIRECTED TWICE DAILY and NEEDED 200 each 3 losartan (Cozaar) 25 MG tablet Take 1 tablet (25 mg) by mouth in the morning. 90 tablet 0 metFORMIN XR (Glucophage-XR) 750 MG 24 hr tablet Take 1 tablet (750 mg) by mouth in the morning and 1 tablet (750 mg) before bedtime. Do not crush, chew, or split.. 60 tablet 0 OneTouch Verio test strip 1 each by Other route in the morning and 1 each before bedtime. semaglutide (Rybelsus) 7 MG tablet Take 7 mg by mouth in the morning. Take before meals. Do not start before July 12, 2024. [START ON 08/11/2024] semaglutide (Rybelsus) 14 MG tablet Take 14 mg by mouth in the morning. Take before meals. Do not start before August 11, 2024. (Patient not taking: Reported on 07/21/2024 Do not start before August 11, 2024.) [DISCONTINUED] metFORMIN XR (Glucophage-XR) 750 MG 24 hr tablet Take 1 tablet (750 mg) by mouth in the morning and 1 tablet (750 mg) before bedtime. Do not crush, chew, or split.. 180 tablet 0 [DISCONTINUED] semaglutide (Rybelsus) 3 MG tablet Take 3 mg by mouth in the morning. Take before meals. Do not start before June 12, 2024. No current facility-administered medications on file prior to visit. 1. Type 2 diabetes mellitus with hyperglycemia, without long-term current use of insulin (CMS/[facility]) (Primary) We had a long discussion today about his uncontrolled diabetes. He admits he knew that his blood sugars were not going to be good because of what he is eating. He also understands that historically has made the changes and he was doing well for over a year. I discussed with him and we have mutually agreed to a three-month trial. He will be up to the full dose of the Rybelsus but he must change the way of eating as he is eating too many desserts. He understands that he may potentially need to go on insulin or at least another more expensive medication which he states he can not afford. - metFORMIN XR (Glucophage-XR) 750 MG 24 hr tablet; Take 1 tablet (750 mg) by mouth in the morning and 1 tablet (750 mg) before bedtime. Do not crush, chew, or split.. Dispense: 180 tablet; Refill: 0 - Hemoglobin A1c; Future - Hemoglobin A1c 2. Benign essential hypertension (CMS/HCC) Chronic problem, stable, to goal - losartan (Cozaar) 50 MG tablet; Take 1 tablet (50 mg) by mouth in the morning. Dispense: 90 tablet; Refill: 0 3. Hyperuricemia No evidence of gouty arthropathy. In prescribing a renewal to their current medication, consideration of the following encompasses moderate decision making; the current prescriptions and supplements, the current allergies and medication intolerances, current medical conditions, and potential drug interactions. Any changes to risks, benefits, and reason for renewing their current medication due to the above were discussed. The patient was given a chance to ask questions today and all questions were answered. The patient is to contact us if any other questions arise or if any problems occur. (Utilizing the original guidelines or the 2020 office/outpatient code guidelines for selecting the level of E/M service, In both sets of guidelines, prescription drug management appears in the moderate medical decision making (MDM) row. Neither the original guidelines nor the new guidelines state that a new prescription or change is needed in order to credit prescription drug management) - allopurinol (Zyloprim) 100 MG tablet; Take 1 tablet (100 mg) by mouth Daily Dispense: 90 tablet; Refill: 0 4. Non-alcoholic fatty liver disease Chronic problem that is directly related to the insulin resistance in his poor diabetic control. Discussed with him the importance of getting better control as this will also lead to long-term cirrhosis of the liver. 5. Class 1 obesity due to excess calories with serious comorbidity and body mass index (BMI) of 33.0 to 33.9 in adult Physically he is fairly active, but it is the diet portion he is missing. documented in this encounter [facility] 08-02-2022 Note PROCEDURE: Pixelle Signa HDXT 1.5 Sagittal T1, T2, STIR and axial T1 and T2 contiguous and cone down images through the lumbar spine were performed without contrast administration. HISTORY: Radiating back pain left leg numbness x 8 weeks FINDINGS: Normal vertebral body height and bone marrow signal intensity. No edema or fracture. No deep soft tissue inflammatory signal. Normal conus medullaris and filum terminal. Normal paravertebral soft tissues. T11-T12 and T12- L1: Normal. L1-2: Minimal disc space loss. Mild central disc bulging. No spinal canal or neuroforaminal stenosis. L2-3: Minimal disc space loss. Mild disc bulging left neuroforaminal zone. Mild facet arthropathy. No spinal canal or neuroforaminal stenosis. L3-4: Minimal disc space loss. Broad based disc bulging left neuroforaminal zone, far lateral annular tear, mild facet arthropathy. No significant spinal canal or neuroforaminal stenosis. L4-5: Minimal disc space loss. Minimal anterolisthesis contributes to mild bulging of disc material, spinal canal and both neuroforaminal zones. Bilateral facet arthropathy, mild left exit neuroforaminal stensosis. No spinal canal stenosis. L5-S1: Mild disc space loss. Broad based disc bulging spinal canal and both neuroforaminal zones. Bilateral facet arthropathy. Left hemilaminectomy. No spinal canal stenosis. Mild right, moderate to severe left mid and exit neuroforaminal stenosis. IMPRESSION: 1. Moderate to severe left L5-S1 neuroforaminal stenosis, disc bulging and facet arthropathy, prior site of hemilaminectomy. Report reported and signed by Fabian Hlolis on 08/02/2022 1150 [facility] First Assistant Manager 03-13-2022 Note HISTORY: Cough, SOB, s/p COVID PROCEDURE: Appies VCT 64. Using high resolution CT technique without intravenous contrast, axial helical images through the chest were performed, 1 mm slice thickness at 10 mm contiguous intervals. Comparison is made with the prior examination of March 06, 2022. FINDINGS: Mild diffuse interstitial prominence. No parenchymal consolidation, alveolar infiltrate or suspicious nodule or mass. 2 x 4 mm perifissural pleural based nodule within the right posterolateral mid chest. No pleural effusion. No significant mediastinal or hilar lymphadenopathy. Mild global cardial enlargement, no pericardial effusion. IMPRESSION: 1. Mild interstitial prominence consistent with post inflammatory sequela and/or interstitial lung disease. Findings are not consistent with idiopathic pulmonary fibrosis. 2. No suspicious lung nodule or mass. Report reported and signed by Fabian Hollis on 03/13/2022 1058 [facility] First Assistant Manager 02-04-2022 Evaluation note Encounter Date Diagnosis Assessment Notes January, Cough (ICD-10 - R05.9) January, COVID-19 (ICD-10 - U07.1) Today you tested positive for the COVID virus. This mean you need to follow all CDC quarantine guidelines found at coronavirus.[place].gov. It is important to rest, increase fluids, and stay at home. Contact PCP and inform them of results. Medications like Mucinex, Cepacol, Tylenol, saline nasal spray are over the counter medications that can help with the symptoms. Current guidelines include staying home, having no fever above 100.4 for 24 hours without medication and having significant improvement of symptoms before you are allowed to stop your quarantine.. For full guidelines go to CDC. GOV. Contact primary care and ask for guidance is essential to follow up * EDUCATION HANDOUT GIVEN ON OTC TREATMENTS, FOLLOW UP AND WHEN TO SEEK EMERGENCY TREATMENT January, Bronchitis (ICD-10 - J40) Bronchitis is inflammation of openings of lungs. It is not caused from bacteria. Antibiotics are not needed to treat this illness. Take medications as directed. Rest and increase fluid intake. Take meds with food to prevent stomach upset. Use inhaler as needed for SOB. Blood sugars may increase due to steroid treatment so eat lower amount of carbs. Follow up with primary care provider if symptoms do not improve with treatment plan, although it may take a few weeks for the cough to go away. [facility] Other 12-24-2021 Evaluation note* Encounter Date Diagnosis Assessment Notes Treatment Notes Treatment Clinical Notes Aug, Contact with and (suspected) exposure to other viral communicable diseases (ICD-10 - Z20.828) Aug, Acute sinusitis, recurrence not specified, unspecified location (ICD-10 - J01.90) Drink plenty fluids, get plenty of rest. Use your Flonase inhaler as prescribed until your symptoms improve. Continue home medications as prescribed. Take the prednisone as prescribed until gone. Take the Zithromax as prescribed until gone. Use the albuterol inhaler as prescribed as needed for cough or shortness of breath Aug, Other Additional time spent conducting pre-visit phone call, screening for symptoms, instructions on social distancing, application and removal of PPE, and cleaning of examination room, equipment and supplies was preformed. Patient education given for testing methodology and results. Patient care instructions given in writting by [facility] document. [facility] Other 10-19-2021 Evaluation note* Encounter Date Diagnosis Assessment Notes Treatment Notes Treatment Clinical Notes Jul, Contact with and (suspected) exposure to other viral communicable diseases (ICD-10 - Z20.828) Today test was performed in office. Results are currently negative. That does not mean that you will not develop COVID or do not currently have a low viral count of COVID. The rapid test works best if symptoms have been over 72 hours and the results can vary if you are asymptomatic There is a higher chance of false negative results to occur if testing is performed too soon. It is recommended that even if results are negative and you have been exposed to someone that has COVID that you follow current CDC recommendations. These can be found at CDC.GOV. Follow up with primary care provider if symptoms persist or do not improve Jul, Bronchitis (ICD-10 - J40) Bronchitis is inflammation of openings of lungs. It is not caused from bacteria. Antibiotics are not needed to treat this illness. Take medications as directed. Rest and increase fluid intake. Take meds with food to prevent stomach upset. Use inhaler as needed for SOB. Blood sugars may increase due to steroid treatment so eat lower amount of carbs. Follow up with primary care provider if symptoms do not improve with treatment plan, although it may take a few weeks for the cough to go away. INCREASED AM AND PM (DINNER) DOSE OF INSULINBY [address] UNTIL HE SEES DR RUTLEDGE TOMORROW AND HAVE IN EATING A SNACK WITH PROTEIN AND BEDTIME OF 1/2 PB SANDWICH OR TURKEY SANDWICH Jul, Other Additional time spent conducting pre-visit phone call, screening for symptoms, instructions on social distancing, application and removal of PPE, and cleaning of examination room, equipment and supplies was preformed. Patient education given for testing methodology and results. Patient care instructions given in writting by [facility] document. [facility] Other Evaluation note* Diagnosis Onset Date Resolution Status Viral URI with cough acute [facility] Work Phone: Evaluation note* Diagnosis Type 2 diabetes mellitus with hyperglycemia, without long-term current use of insulin (CMS/HCC)- Primary Benign essential hypertension (CMS/HCC) Essential hypertension, benign Hyperuricemia Other abnormal blood chemistry Non-alcoholic fatty liver disease Class 1 obesity due to excess calories with serious comorbidity and body mass index (BMI) of 33.0 to 33.9 in adult documented in this encounter [facility] HealthcareEvaluation note* Diagnosis Benign essential hypertension (CMS/HCC) Essential hypertension, benign Microalbuminuria Proteinuria Type 2 diabetes mellitus with hyperglycemia, without long-term current use of insulin ([facility]) Type 2 diabetes mellitus with both eyes affected by mild nonproliferative retinopathy without macular edema, without long-term current use of insulin ([facility]) Hyperuricemia Other abnormal blood chemistry Morbid obesity due to excess calories ([facility]) Former cigarette smoker Personal history of tobacco use, presenting hazards to health documented in this encounter [facility] HealthcareEvaluation note* Diagnosis Bronchitis- Primary Bronchitis, not specified as acute or chronic Type 2 diabetes mellitus with hyperglycemia, without long-term current use of insulin ([facility]) documented in this encounter [facility] HealthcareEvaluation note* Diagnosis Benign essential hypertension ([facility]/HCC)- Primary Essential hypertension, benign Hypertensive nephropathy ([facility]) Unspecified hypertensive kidney disease with chronic kidney disease stage I through stage IV, or unspecified Microalbuminuria Proteinuria Diabetic nephropathy associated with type 2 diabetes mellitus (HCC) ([facility]) Type 2 diabetes mellitus with hyperglycemia, without long-term current use of insulin ([facility]) Type 2 diabetes mellitus with both eyes affected by mild nonproliferative retinopathy without macular edema, without long-term current use of insulin ([facility]) Hyperuricemia Other abnormal blood chemistry Former cigarette smoker Personal history of tobacco use, presenting hazards to health Non morbid obesity due to excess calories documented in this encounter [facility] HealthcareHistory general Narrative - Reported* Type Description Date Medical History hypertension Medical History diabetes mallitus Surgical History right shoulder X2 Surgical History back surgery Surgical History hernia repair Surgical History hemorrhoidectomy Surgical History L carpal tunnel release Hospitalization History See Above [facility] Other Summary Purpose Family History No Family History Records Found Relationship Condition Age at Onset Recorded Date/T delaney father Unknown Not Specified Unknown Advance Directives No Advanced Directives Records Found Advance Directive Response Recorded Date/ Time Advance Directives No March 16 9:38am Chief Complaint and Reason for Visit Chief Complaint head cold since thur sday Reason for Visit Viral URI with cough Additional Source Comments REASON FOR VISIT (unrecogniz ed section and content) Reason Comments Med Refill Reason Comments URI Reason Comments Diabetes Hypertension Hyperuricemia (unrecognized sect ion and content) No Status Records FoundNo Status Records FoundNo Status Records FoundNo Status Records Found INFORMATION SOURCE (unrecogn ized section and content) DATE CREATED AUTHOR 04/19/2022 [facility] DATE CREATED AUTHOR AUTHOR'S ORGANIZ ATION 08/03/2022 [facility] DATE CREATED AUTHOR AUTHOR'S ORGANIZ ATION 02/27/2025 [facility] DATE CREATED AUTHOR AUTHOR'S ORGANIZ ATION 02/27/2025 [facility] EPIC Care Teams (unrecognized sec tion and content) Team Status: Active Member Role Status Dates Sushil Pak MD Primary Care Provider Active Team Status: Inactive Member Role Status Dates Sushil Pak MD Primary Care Provider Active Start: March 16, 2024 End: March 16, 2024 Amy Grover APRN Attending Provider Active Start: March 16, 2024 End: March 16, 2024 Vp Scientific Relationship Specialty Start Date End Date Sushil Pak MD [address] [place] [address] (Fax) PCP - Cheo TAYLOR 10/01/21 Sushil Pak MD [address] [place] [phone] PCP - General Family Medicine 11/29/23 Satish Ruvalcaba MD [address] [place] [phone] Referring Physician Ophthalmology 12/26/23 Vp Scientific Relationship Specialty Start Date End Date Sushil Pak MD [address] [place] [address] PCP - Cheo TAYLOR 10/01/21 Sushil Pak MD [address] [place] [phone] PCP - General Family Medicine 11/29/23 Satish Ruvalcaba MD [address] [place] [address] Referring Physician Ophthalmology 12/26/23 Vp Scientific Relationship Specialty Start Date End Date Sushil Pak MD [address] [place] [phone] (Fax) PCP - Cheo TAYLOR 10/01/21 Sushil Pak MD [address] [place] [phone] PCP - General Family Medicine 11/29/23 Satish Ruvalcaba MD [address] [place] [phone] Referring Physician Ophthalmology 12/26/23 Vp Scientific Relationship Specialty Start Date End Date Sushil Pak MD [address] [place] [address] (Fax) PCP - Cheo TAYLOR 10/01/21 Sushil Pak MD [address] [place] [address] (Fax) PCP - General Family Medicine 11/29/23 Satish Ruvalcaba MD [address] [place] [address] Referring Physician Ophthalmology 12/26/23 Vp Scientific Relationship Specialty Start Date End Date Sushil Pak MD [address] [place] [address] (Fax) PCP - Cheo TAYLOR 10/01/21 Sushil Pak MD [address] [facility] [address] [place] [address] (Fax) PCP - General Family Medicine 11/29/23 Satish Ruvalcaba MD [address] [place] [phone] Referring Physician Ophthalmology 12/26/23 Vp Scientific Relationship Specialty Start Date End Date Sushil Pak MD [address] [facility] [address] [place] [address] (Fax) PCP - Cheo TAYLOR 10/01/21 Sushil Pak MD [address] [phone] (Fax) PCP - General Family Medicine 11/29/23 Satish Ruvalcaba MD [address] [place], [place] [phone] Referring Physician Ophthalmology 12/26/23 Vp Scientific Relationship Specialty Start Date End Date Sushil Pak MD [address] [phone] (Fax) PCP - Cheo TAYLOR 10/01/21 Sushil Pak MD [address] [address] (Fax) PCP - General Family Medicine 11/29/23 Satish Ruvalcaba MD [address] [place] [phone] Referring Physician Ophthalmology 12/26/23 Vp Scientific Relationship Specialty Start Date End Date Sushil Pak MD [address] [address] (Fax) PCP - Cheo TAYLOR 10/01/21 Sushil Pak MD [address] [address] (Fax) PCP - General Family Medicine 11/29/23 Satish Ruvalcaba MD [address] [place], [place] [phone] Referring Physician Ophthalmology 12/26/23 Jojo Jc LPN 01/01/25 Vp Scientific Relationship Specialty Start Date End Date Sushil Pak MD [address] [address] (Fax) PCP - Cheo TAYLOR 10/01/21 Sushil Pak MD [address] [address] (Fax) PCP - General Family Medicine 11/29/23 Satish Ruvalcaba MD [address] [place], [place] [phone] Referring Physician Ophthalmology 12/26/23 Jojo Jc LPN 01/01/25 Vp Scientific Relationship Specialty Start Date End Date Sushil Pak MD [address] [phone] (Fax) PCP - Cheo TAYLOR 10/01/21 Sushil Pak MD [address] [address] (Fax) PCP - General Family Medicine 11/29/23 Satish Ruvalcaba MD [facility] [place] [address] Referring Physician Ophthalmology 12/26/23 Jojo Jc LPN 01/01/25 Goals (unrecognized section and content) Goals may be documented in a n alternate section FOR RECORDS PERTAINING TO PATIENTS WHO ARE OR HAVE BEEN ENROLLED IN A CHEMICAL DEPENDENCY/SUBSTANCEABUSE PROGRAM, SOME INFORMATION MAY BE OMITTED. This clinical summary was aggregated from multiple sources. Caution should be exercised in using it in the provision of clinical care. This summary normalizes information from multiple sources, and as a consequence, information in this document may materially change the coding, format and clinical context of patient data. In addition, data may be omitted in some cases. CLINICAL DECISIONS SHOULD BE BASED ON THE PRIMARY CLINICAL RECORDS. [employer] provides no warranty or guarantee of the accuracy or completeness of information in this document.
--- NOTE | 2025-03-22 10:01 | ECG_ITS ---
[facility] Test Date: 2025-03-22 Pat Name: GO ALVAREZ Department: Room: - Gender: Male Materials Supervisor: : [id number] Requested By: [id number] Order Number: [id number] Reading MD: MADELIN DIXON M.D. Measurements Intervals [place] Rate: 84 P: 34 MN: 222 QRS: 0 QRSD: 124 T: 35 QT: 368 QTc: 410 Interpretive Statements 1100 Sinus rhythm 2231 First degree AV block 3114 Cannot rule out anterior myocardial infarction, age undetermined 9150 abnormal ECG No previous ECG available for comparison Electronically Signed On 03-22-2025 22:07:24 EDT by MADELIN DIXON M.D.
--- NOTE | 2025-03-22 10:04 | ED.EYEPROB1 ---
HPI - Eye Problem General Chief complaint: Eye Problems Stated complaint: L EYE SWELLING Time Seen by Provider: 03/22/25 10:01 Source: patient Mode of arrival: walk-in History of Present Illness HPI Narrative: The patient is 74-year-old male coming to the ER after he had a disturbance in vision of the left eye, yesterday when he using artificial tears that the fourth close with the vision in the lower part of the eye, mentioned that the lower part of the field in the left eye is covered with a line that is fixed in the lower part of the field, he had no headache no nausea no vomiting no other complaint he has no other concerns whatsoever and the symptoms where 8:00 PM yesterday he is presenting today at 10 AM Related Data Home Medications ?Medication ?Instructions ?Recorded ?Confirmed allopurinol 100 mg tablet mg 03/22/25 insulin degludec 100 unit/mL (3 unit subcut 03/22/25 mL) subcutaneous pen (Tresiba FlexTouch U-100 insulin) Allergies Allergy/AdvReac Type Severity Reaction Status Date / Time No Known Drug Allergies Allergy Verified 03/22/25 10:00 Review of Systems ROS Status of ROS 10 or more systems reviewed and unremarkable except as noted in history and below PFSH PFSH Social History Little interest or pleasure in doing things: not at all Feeling down, depressed, or hopeless: not at all Exam Narrative Exam Narrative: Nurses notes and vital signs reviewed and patient is not hypoxic. General: Well-appearing and in no apparent distress. Skin: Warm, dry, no pallor noted. No rash. Head: Normocephalic, atraumatic. Neck: Supple, non-tender. Eye: Pupils are equal, round and EOMI. No scleral icterus. Ears, Nose, Mouth, and Throat: TM are clear, no nasal mucosal hypertrophy. Oral mucosa is moist, no posterior oropharynx erythema, uvula is mid-line Cardiovascular: Regular Rate and Rhythm without murmur, gallop or rub. Respiratory: No accessory muscle use or respiratory distress. Lungs are clear to auscultation, no wheezing, rales or rhonchi Chest Wall: no tenderness Back: No midline thoracic or lumbar vertebral tenderness. No CVA tenderness Musculoskeletal: normal ROM, no calf or popliteal tenderness, no lower extremity edema/swelling GI: Abdomen is soft, non-distended. Normal bowel sounds. No masses appreciated. No tenderness to palpation. No rebound, guarding, or rigidity noted. Neurological: A&O x4. No cranial nerve dysfunction observed. No truncal ataxia. Moves all extremities. Sensation intact. Psychiatric: Cooperative and interactive. Normal mood and affect. Constitutional Vital Signs, click to edit/add: Last Vital Signs Temp 99.3 F 03/22/25 09:48 Pulse 91 H 03/22/25 09:48 Resp 18 03/22/25 09:48 BP 133/88 03/22/25 12:40 Pulse Ox 96 03/22/25 09:48 O2 Del Method Room Air 03/22/25 09:48 Course Vital Signs Vital signs: Vital Signs Temperature 99.3 F 03/22/25 09:48 Pulse Rate 91 H 03/22/25 09:48 Respiratory Rate 18 03/22/25 09:48 Blood Pressure 179/90 H 03/22/25 09:48 Pulse Oximetry 96 03/22/25 09:48 Oxygen Delivery Method Room Air 03/22/25 09:48 Temperature 99.3 F 03/22/25 09:48 Pulse Rate 91 H 03/22/25 09:48 Respiratory Rate 18 03/22/25 09:48 Blood Pressure 133/88 03/22/25 12:40 Pulse Oximetry 96 03/22/25 09:48 Oxygen Delivery Method Room Air 03/22/25 09:48 MDM - Eye Problem MDM Narrative Medical decision making narrative: The patient EKG showing sinus rhythm with a heart rate of [address] elevation or depression there is a first-degree heart block The patient NIH score upon arrival was 0 and he really almost 14 hours into his last known well The patient CAT scan of the head showed no acute pathology as well as CT angio head and neck The patient case discussed with the teleneurologist and he requested the patient to be admitted for MRI of the brain to rule out any stroke The patient is agreeable to be admitted The patient vision loss is in the lower part of the field not in the upper which make it less likely to be a detachment with his history of diabetic retinopathy presentation could be also secondary to retinopathy but with his multiple risk factors the patient is presenting neurology need an MRI The patient right vision is 20/30 the left is 20/40 and both of them are 20/30. Patient case discussed with the Dr. Bowen and he agreed with above-mentioned plan Lab Data Labs: Lab Results 03/22/25 Range/Units 10:33 WBC 5.1 (4.0-11.0) 10^3/uL RBC 3.97 L (4.70-6.10) 10^6/uL Hgb 13.2 L (14.0-18.0) g/dL Hct 39.2 L (42.0-54.0) % MCV 98.7 H (80.0-94.0) fL MCH 33.2 (25.9-34.0) pg MCHC 33.7 (29.9-35.2) g/dL RDW 13.0 (11.0-15.0) % Plt Count 156 (150-450) 10^3/uL MPV 11.0 (9.5-13.5) fL Neut % (Auto) 48.9 (43.0-75.0) % Lymph % (Auto) 42.2 (20.5-60.0) % [place] % (Auto) 6.7 (1.7-12.0) % Eos % (Auto) 1.0 (0.9-7.0) % Baso % (Auto) 0.6 (0.2-2.0) % Neut # (Auto) 2.5 (1.4-6.5) 10^3/uL Lymph # (Auto) 2.2 (1.2-3.8) 10^3/uL [place] # (Auto) 0.3 (0.3-0.8) 10^3/uL Eos # (Auto) 0.1 (0.0-0.7) 10^3/uL Baso # (Auto) 0.0 (0.0-0.1) 10^3/uL Abs Immat Gran (auto) 0.03 (0.00-0.03) 10^3/uL Imm/Tot Granulo (auto) 0.6 H (0.0-0.5) % Sodium 139 (136-145) mmol/L Potassium 4.5 (3.5-5.1) mmol/L Chloride 101 (98-107) mmol/L Carbon Dioxide 29.5 (21.0-32.0) mmol/L Anion Gap 13.0 BUN 14.0 (7.0-18.0) mg/dL Creatinine 0.64 L (0.70-1.30) mg/dL Est GFR ( Amer) >60 (>=60 mL/min/1.73m^2) Est GFR (Non-Af Amer) >60 (>=60 mL/min/1.73m^2) BUN/Creatinine Ratio 21.9 Glucose 162 H (74-106) mg/dL Calcium 9.5 (8.5-10.1) mg/dL Total Bilirubin 0.5 (0.2-1.0) mg/dL AST 15 (15-37) U/L ALT 26 (16-63) U/L Alkaline Phosphatase 48 (46-116) U/L Total Protein 7.0 (6.4-8.2) g/dL Albumin 3.6 (3.4-5.0) g/dL Globulin 3.4 g/dL Albumin/Globulin Ratio 1.1 Discharge Plan Discharge Chief Complaint: Eye Problems Clinical Impression: Vision disturbance, Stroke-like symptom Patient Disposition: Admitted as Observation Time of Disposition Decision: 14:01
[2025-03-22 10:43] LABS: Basophils Percent Auto 0.6 % (0.2-2.0); Eosinophils Absolute Auto 0.1 10^3/uL (0.0-0.7); Hematocrit 39.2 % (42.0-54.0); Hemoglobin 13.2 g/dL (14.0-18.0); Immature Granulocytes Abs Auto 0.03 10^3/uL (0.00-0.03); Immature Granulocytes Pct Auto 0.6 % (0.0-0.5); Lymphocytes Absolute Auto 2.2 10^3/uL (1.2-3.8); Lymphocytes Percent Auto 42.2 % (20.5-60.0); Mean Corpuscular HGB Conc 33.7 g/dL (29.9-35.2); Mean Corpuscular Hemoglobin 33.2 pg (25.9-34.0); Mean Corpuscular Volume 98.7 fL (80.0-94.0); Monocytes Absolute Auto 0.3 10^3/uL (0.3-0.8); Monocytes Percent Auto 6.7 % (1.7-12.0); Neutrophils Absolute Auto 2.5 10^3/uL (1.4-6.5); Neutrophils Percent Auto 48.9 % (43.0-75.0); Platelet Count 156 10^3/uL (150-450); Red Blood Count 3.97 10^6/uL (4.70-6.10); White Blood Count 5.1 10^3/uL (4.0-11.0)
[2025-03-22 11:02] LABS: Alanine Aminotransferase 26 U/L (16-63); Albumin Globulin Ratio 1.1; Albumin Level 3.6 g/dL (3.4-5.0); Alkaline Phosphatase 48 U/L (46-116); Aspartate Amino Transferase 15 U/L (15-37); BUN Creatinine Ratio 21.9; Bilirubin Total 0.5 mg/dL (0.2-1.0); Calcium 9.5 mg/dL (8.5-10.1); Carbon Dioxide 29.5 mmol/L (21.0-32.0); Chloride 101 mmol/L (98-107); Estimated GFR (African America >60 (>=60 mL/min/1.73m^2); Estimated GFR (Non-African Ame >60 (>=60 mL/min/1.73m^2); Globulin 3.4 g/dL; Glucose 162 mg/dL (74-106); Potassium 4.5 mmol/L (3.5-5.1); Sodium 139 mmol/L (136-145)
--- OUTSIDE RECORDS SUMMARY | 2025-03-22 15:24 | XMS_ITS | CCD ---
Author Organization [facility] Team Providers Care Supervisory Cbp Officer Name Role Phone Danelle Silva Unavailable Essence Ledezma Unavailable DR SUSHIL PAK Primary Care Unavailable POCOS, DR LY Attending Unavailable POCOS, DR LY Consulting Unavailable POCOS, DR LY Admitting Unavailable Sushil Pak MD Unavailable Sushil Pak MD Primary Care Provider Peg MELVIN, Satish Aquino Unavailable Sushil Pak MD Unavailable Sushil Pak MD Primary Care Provider [phone] Jojo Jc LPN Unavailable Unavailable SUSHIL PAK Attending Unavailable SUSHIL PAK Attending Unavailable SUSHIL PAK Attending Unavailable SUSHIL PAK Attending Unavailable SUSHIL PAK Attending Unavailable SUSHIL PAK Attending Unavailable Medications Current Medications Medication Drug Class(es) Dates Sig (Normalized) Sig (Original) acarbose 100 mg oral tablet (3 sources) alpha-Glucosidase Inhibitor Acarbose 100 MG Oral for 90 Active [id number] 200 actuat albuterol 0.09 mg/actuat metered dose [...] 024 Blood-Glucose Meter (True Metrix Glucose M[facility]) [facility] EACH .ROUTE .MEDSUPPLY March 16, 2024 12:00am As directed Continuous Glucose Choker Hooker (FreeStyle Bridger 3 Curlew) device (6 sources) Start: 025 Continuous Glucose Choker Hooker (FreeStyle Bridger 3 Curlew) device Indications: Type 2 diabetes mellitus with both eyes affected by mild nonproliferative retinopathy without macular edema, without long-term current use of insulin ([facility]) 1 Device See administration instructions Using Bridger 3 plus sensors 1 each 10/23/2024 Active Start: 10-23-2024 Continuous Glu cose Choker Hooker (FreeStyle Bridger 3 Curlew) device Indications: Type 2 diabetes mellitus with both eyes affected by mild nonproliferative retinopathy without macular edema, without long-term current use of insulin (CMS/HCC) 1 Device See administration instructions 10/23/2024 Active Continuous Glucose Sensor (FreeStyle Bridger 3 Plus Sensor) mis (6 sources) Start: 02-24-2025 End: 02-24-2026 Continuous Glucose Sensor (FreeStyle Bridger 3 Plus Sensor) [facility] Indications: Type 2 diabetes mellitus with both eyes affected by mild nonproliferative retinopathy without macular edema, without long-term current use of insulin (CMS/HCC) Inject 1 Device into the skin Every 15 Days 6 each 3 02/24/2025 02/24/2026 Active Start: 10-23-2024 End: 02-24-2025 Continuous Glucose Sensor (F reeStyle Bridger 3 Plus Sensor) [facility] Indications: Type 2 diabetes mellitus with both eyes affected by mild nonproliferative retinopathy without macular edema, without long-term current use of insulin (CMS/HCC) Inject 1 Device into the skin Every 15 Days 6 each 3 10/23/2024 02/24/2025 Discontinued (Reorder) Start: 10-23-2024 End: 10-23-2025 Continuous Glucose Sensor (F reeStyle Bridger 3 Plus Sensor) [facility] Indications: Type 2 diabetes mellitus with both eyes affected by mild nonproliferative retinopathy without macular edema, without long-term current use of insulin (CMS/HCC) Inject 1 Device into the skin Every 15 Days 6 each 3 10/23/2024 10/23/2025 Active Continuous Glucose Sensor (FreeStyle Bridger 3 Sensor) mis (2 sources) Start: 10-23-2024 Continuous Glucose Sensor (FreeStyle Bridger 3 Sensor) [facility] Indications: Type 2 diabetes mellitus with both [...] edema, without long-term current use of insulin ([facility]) Take 1 tablet (14 mg) by mouth [...] oral tablet (6 sources) alpha-Adrenergic Agonist, Uncompetitive L-qdpvbs-W-aspartate Receptor Antagonist, Sigma-1 Agonist Start: 10-14-2024 End: 10-24-2024 take 1 tablet by mouth in the morning, then take 1 tablet by mouth in the evening, then take 1 tablet by mouth at bedtime wiphvlsyjwiqtvz-QI-XM (Capmist DM) 60-15-400 MG tablet Indications: Bronchitis Take 1 tablet by mouth in the morning and 1 tablet in the evening and 1 tablet before bedtime. Do all this for 10 days. 30 tablet 10/14/2024 10/22/2024 Discontinued (Therapy completed) Start: 03-16-2024 take 4 tablets by mo [facility] every twenty-four hours Hcmcrhlobhnpbhx-Lw-Pvolyuatnwr (Capmist Dm) 60-15-400 mg tablet Active 1 [...] Range Not established Performed By: #### 4 70, 8914 #### [facility] [address], [address] [place] [id number] Plant Engineer: Juan Mckenna MD ALBUMIN/CREATININE RATIO, RANDOM URINE [...] #### 4 96, 6517 #### [facility] [address], [address] [place] [address] Plant Engineer: Juan Mckenna MD Creatinine (U) [Mass/Vol] 46 mg/dL Normal 20-320 [facility] Comment on above: Order Comment: FASTI NG:YES FASTING: YES Performed By: #### 4 , 6517 #### [facility] [address], [address] [place] [address] Plant Engineer: Juan Mckenna MD HEMOGLOBIN A1con 02-21-2025 HbA1c [...] #### 4 96, 6517 #### [facility] [address], [address] [place] [address] Plant Engineer: Juan Mckenna MD COMPREHENSIVE METABOLIC PANE [facility] 02-07-2025 Albumin [Mass/Vol] 4.3 g/dL Normal 3.6-5.1 [facility] Comment on above: Performed By: #### 1 0231, 905, 2990 #### [facility] [address], [address] [place] [address] Plant Engineer: Juan Mckenna MD Albumin/Globulin [Mass ratio] 1.7 {ratio} Normal 1.0-2.5 [facility] Comment on above: Performed By: #### 1 230, 90, 7600 #### [facility] [place] [address] Plant Engineer: Juan Mckenna MD ALP [Catalytic activity/Vol] 40 U/L Normal 35-144 [facility] Comment on above: Performed By: #### 1 230, , 7600 #### [facility] [place] [address] Plant Engineer: Juan Mckenna MD ALT [Catalytic activity/Vol] 16 U/L Normal 9-46 [facility] Comment on above: Performed By: #### 1 230, 90, 7600 #### [facility] [place] [address] Plant Engineer: Juan Mckenna MD AST [Catalytic activity/Vol] 15 U/L Normal 10-35 [facility] Comment on above: Performed By: #### 1 230, , 7600 #### [facility] [place] [address] Plant Engineer: Juan Mckenna MD Bilirubin [Mass/Vol] 0.5 mg/dL Normal 0.2-1.2 [facility] Comment on above: Performed By: #### 1 230, , 7600 #### [facility] [place] [address] Plant Engineer: Juan Mckenna MD Calcium [Mass/Vol] 9.4 mg/dL Normal 8.6-10.3 [facility] Comment on above: Performed By: #### 1 230, 90, 7600 #### [facility] [place] [address] Plant Engineer: Juan Mckenna MD Chloride [Moles/Vol] 102 mmol/L Normal 98-110 [facility] Comment on above: Performed By: #### 1 230, 90, 7600 #### [facility] [place] [address] Plant Engineer: Juan Mckenna MD CO2 [Moles/Vol] 24 mmol/L Normal 20-32 [facility] Comment on above: Performed By: #### 1 230, 90, 7600 #### [facility] [place] [address] Plant Engineer: Juan Mckenna MD Creatinine [Mass/Vol] 0.61 mg/dL Low 0.70-1.28 [facility] Comment on above: Performed By: #### 1 230, 90, 7600 #### [facility] [place] [address] Plant Engineer: Juan Mckenna MD GFR/1.73 sq M.predicted among non-blacks MDRD (S/P/Bld) [Vol rate/Area] 101 mL/min/{1.73_m2} Normal > OR = 60 [facility] Comment on above: Performed By: #### 1 230, 90, 0 #### [facility] [place] [address] Plant Engineer: Juan Mckenna MD Globulin (S) [Mass/Vol] 2.5 g/dL Normal 1.9-3.7 [facility] Comment on above: Performed By: #### 1 230, 90, 7600 #### [facility] [place] [address] Plant Engineer: Juan Mckenna MD Glucose [Mass/Vol] 198 mg/dL High 65-99 [facility] Comment on above: Result Comment: Fasting reference interval For someone without known diabetes, a glucose value >125 mg/dL indicates that they may have diabetes and this should be confirmed with a follow-up test. Performed By: #### 1 230, 90, 7600 #### [facility] [place] [address] Plant Engineer: Juan Mckenna MD Potassium [Moles/Vol] 4.3 mmol/L Normal 3.5-5.3 [facility] Comment on above: Performed By: #### 1 023, 90, 7600 #### [facility] [place] [address] Plant Engineer: Juan Mckenna MD Protein [Mass/Vol] 6.8 g/dL Normal 6.1-8.1 [facility] Comment on above: Performed By: #### 1 023, 90, 7600 #### [facility] [place] [address] Plant Engineer: Juan Mckenna MD Sodium [Moles/Vol] 137 mmol/L Normal 135-146 [facility] Comment on above: Performed By: #### 1 023, 90, 7600 #### [facility] [place] [address] Plant Engineer: Juan Mckenna MD Urea nitrogen [Mass/Vol] 9 mg/dL Normal 7-25 [facility] Comment on above: Performed By: #### 1 023, 90, 7600 #### [facility] [place] [address] Plant Engineer: Juan Mckenna MD Urea nitrogen/Creatinin e [Mass ratio] 15 mg/mg Normal 6-22 [facility] Comment on above: Performed By: #### 1 023, 90, 7600 #### [facility] [place] [address] Plant Engineer: Juan Mckenna MD LIPID PANEL, [facility] 05-1 0 Cholesterol [Mass/Vol] 169 mg/dL Normal <200 [facility] Comment on above: Order Comment: FASTI NG:YES FASTING: YES Performed By: #### 1 023, 905, 7600 #### [facility] [place] [address] Plant Engineer: Juan Mckenna MD Cholesterol in HDL [Mass/Vol] 63 mg/dL Normal > OR = 40 [facility] Comment on above: Order Comment: FASTI NG:YES FASTING: YES Performed By: #### 1 0231, 905, 7600 #### [facility] [address], [address] [place] [address] Plant Engineer: Juan Mckenna MD Cholesterol in LDL [Mass/Vol] [...] LDL-C. Keyshawn SS et al. LAKESHA. 2013;310(19): 7140-0397 (http://education.[employer]/faq/TSQ303) Performed By: #### 1 023, 905, 7600 #### [facility] [address], [address] [place] [address] Plant Engineer: Juan Mckenna MD Cholesterol.total/ Cholesterol in HDL [Mass ratio] 2.7 {ratio} Normal <5.0 [facility] Comment on above: Order Comment: FASTI NG:YES FASTING: YES Performed By: #### 1 0231, 905, 7600 #### [facility] [address], [address] [place] [address] Plant Engineer: Juan Mckenna MD NON HDL CHOLESTEROL 106 mg/dL (calc) Normal <130 [facility] Comment on above: Order Comment: FASTI NG:YES FASTING: YES Result Comment: For patients with diabetes plus 1 major ASCVD risk factor, treating to a non-HDL-C goal of <100 mg/dL (LDL-C of <70 mg/dL) is considered a therapeutic option. Performed By: #### 1 0231, 905, 7600 #### [facility] [address], [address] [place] [address] Plant Engineer: Juan Mckenna MD Triglyceride [Mass/Vol] 75 mg/dL Normal <150 [facility] Comment on above: Order Comment: FASTI NG:YES FASTING: YES Performed By: #### 1 0231, 905, 7600 #### [facility] [address], [address] [place] [address] Plant Engineer: Juan Mckenna MD URIC ACIDon 02-07-2025 Urate [Mass/Vol] 5.5 mg/dL Normal 4.0-8.0 [facility] Comment on above: Result Comment: Ther apeutic target for gout patients: <6.0 mg/dL Performed By: #### 1 0231, 905, 7600 #### [facility] [address], [address] [place] [address] Plant Engineer: Juan Mckenna MD HEMOGLOBIN A1con 10-18-2024 HEMOGLOBIN [...] By: #### 4 96 #### [facility] [address], [address] [place] [address] Plant Engineer: Juan Mckenna MD XR Spine Lumbar 4+ [...] by Fabian Hollis on 07/06/2022 0723 Normal [facility] [employer] ASYMPTOMATIC COVID-19 ANTIGE Non 04-13-2022 EUA Statement SEE BELOW Normal [facility] Comment on above: Result Comment: This test [...] sooner. Performed By: #### C VDAGA #### [facility] [address] [place] [address] Dr. Reza Tomas SARS-CoV-2 (COVID-19) RNA KULWANT+probe Ql (Unsp spec) Negative Normal NEGATIVE [facility] Comment on above: Result Comment: Nega tive results are presumptive. They do not preclude infection and should not be used as the sole basis for treatment decisions. Additional confirmatory testing by a molecular method should be considered. Performed By: #### C VDAGA #### [facility] [address] [place] [address] Dr. Reza Tomas MRI Knee w/o Righton [...] by Derek Vaca on 03/28/2022 1513 Normal [facility] [employer] XR Chest 2 Views*on 03-06-20 22 XR [...] by Fabian Hollis on 03/06/2022 1006 Normal [facility] Specialist COVID Quick Testingon 2021 Result Positive [employer] Other US Aorta Screeningon 022 US Aorta Screening FINDINGS: Proximal Aorta2.0 x 2.2 cm Mid Aorta1.8 x 2.2 cm Distal Aorta1.9 x 1.7 cm Right Common Iliac11 x 12 mm Left Common Iliac9 x 12 mm No aneurysmal dilatation is identified. No neighboring fluid collections are seen. IMPRESSION: No significant aneurysmal formation. Report reported and signed by Fabian Hollis on 01/11/2022 1008 Normal [facility] Specialist Hemoglobin A1Con 11-24-2021 EAG 168.55 Normal [facility] Specialist Comment on above: Performed By: #### A 1C #### [facility] [address] [place], [place] [id number] HbA1c (Bld) [Mass fraction] 7.5 % High 4.0-6.0 [facility] Comment on above: Performed By: #### A 1C #### [facility] [address] [place], [place] [id number] COVID Quick Testingon 2020 Result Negative [employer] Other Vital Signs Date Time Vital Sign Value Performing Clinician Facility 02-24-2025 08:31-0400 Body height 180.3 cm Sushil Pak MD Work Phone: [facility] 02-24-2025 08:31-0400 Body mass index (BMI) [Ratio] 33.05 kg/m2 Sushil Pak MD Work Phone: [facility] 02-24-2025 08:31-0400 Body weight 107.5 kg Sushil Pak MD Work Phone: [facility] 02-24-2025 08:31-0400 Diastolic blood pressure 86 mm[Hg] Sushil Pak MD Work Phone: [facility] 02-24-2025 08:31-0400 Heart rate 82 /min Sushil Pak MD Work Phone: [facility] 02-24-2025 08:31-0400 SaO2% (BldA) [Mass fraction] 96 % Sushil Pak MD Work Phone: [facility] 02-24-2025 08:31-0400 Systolic blood pressure 138 mm[Hg] Sushil Pak MD Work Phone: [facility] 10-22-2024 10:26-0500 Body height 180.3 cm Sushil Pak MD Work Phone: [facility] 10-22-2024 10:26-0500 Body mass index (BMI) [Ratio] 31.8 kg/m2 Sushil Pak MD Work Phone: [facility] 10-22-2024 10:26-0500 Body weight 103.42 kg Sushil Pak MD Work Phone: [facility] 10-22-2024 10:26-0500 Diastolic blood pressure 72 mm[Hg] Sushil Pak MD Work Phone: [facility] 10-22-2024 10:26-0500 Heart rate 96 /min Sushil Pak MD Work Phone: [facility] 10-22-2024 10:26-0500 SaO2% (BldA) [Mass fraction] 97 % Sushil Pak MD Work Phone: [facility] 10-22-2024 10:26-0500 Systolic blood pressure 124 mm[Hg] Sushil Pak MD Work Phone: [facility] 07-21-2024 09:54-0400 Body height 180.3 cm Sushil Pak MD Work Phone: [facility] 07-21-2024 09:54-0400 Body mass index (BMI) [Ratio] 33.19 kg/m2 Sushil Pak MD Work Phone: [facility] 07-21-2024 09:54-0400 Body weight 107.96 kg Sushil Pak MD Work Phone: [facility] 07-21-2024 09:54-0400 Diastolic blood pressure 82 mm[Hg] Sushil Pak MD Work Phone: [facility] 07-21-2024 09:54-0400 Heart rate 84 /min Sushil Pak MD Work Phone: [facility] 07-21-2024 09:54-0400 SaO2% (BldA) [Mass fraction] 97 % Sushil Pak MD Work Phone: [facility] 07-21-2024 09:54-0400 Systolic blood pressure 140 mm[Hg] Sushil Pak MD Work Phone: [facility] 03-16-2024 09:51-0400 Body height 177.8 cm [facility] 03-16-2024 09:51-0400 Body mass index (BMI) [Ratio] 34.4 kg/m2 [facility] 03-16-2024 09:51-0400 Body temperature 98.5 [degF] [facility] 03-16-2024 09:51-0400 Body weight 108.86 kg [facility] 03-16-2024 09:51-0400 Diastolic blood pressure 62 mm[Hg] [facility] 03-16-2024 09:51-0400 Heart rate 85 /min [facility] 03-16-2024 09:51-0400 Respiratory rate 18 /min [facility] 03-16-2024 09:51-0400 SaO2% (BldA) [Mass fraction] 96 % [facility] 03-16-2024 09:51-0400 Systolic blood pressure 110 mm[Hg] [facility] 02-04-2022 11:30-0400 Body height 177.8 cm Danelle Parkault Other [facility] [employer] Other 02-04-2022 11:30-0400 Body mass index (BMI) [Ratio] 38.74 kg/m2 Danelle Ricardo Other [employer] Other 02-04-2022 11:30-0400 Body temperature 98.2 [degF] Danelle Silva Other [employer] Other 02-04-2022 11:30-0400 Body weight 122.47 kg Danelle Silva Other [employer] Other 02-04-2022 11:30-0400 SaO2% (BldA) [Mass fraction] 91 % Danelle Parkault Other [employer] Other 09-23-2021 11:45-0500 Body height 177.8 cm Essence Ledezma Other [employer] Other 09-23-2021 11:45-0500 Body mass index (BMI) [Ratio] 38.74 kg/m2 Essence Ledezma Other [employer] Other 09-23-2021 11:45-0500 Body temperature 98.6 [degF] Essence Ledezma Other [employer] Other 09-23-2021 11:45-0500 Body weight 122.47 kg Essence Ledezma Other [employer] Other 09-23-2021 11:45-0500 SaO2% (BldA) [Mass fraction] 94 % Essence Ledezma Other [employer] Other 07-19-2021 10:45-0400 Body height 177.8 cm Danelle Silva Other [employer] Other 07-19-2021 10:45-0400 Body mass index (BMI) [Ratio] 38.74 kg/m2 Danelle Parkault Other [employer] Other 07-19-2021 10:45-0400 Body temperature 97.1 [degF] Danelle Parkault Other [employer] Other 07-19-2021 10:45-0400 Body weight 122.47 kg Danelle Parkault Other [employer] Other 07-19-2021 10:45-0400 Respiratory rate 18 /min Danelle Parkault Other [employer] Other 07-19-2021 10:45-0400 SaO2% (BldA) [Mass fraction] 97 % Danelle Ricardo Other [employer] Other Encounters Encounter Date Encounter Type Care [...] 07-17-2024 Refill Sushil Pak MD Work Phone: [facility] Start: 03-16-2024 End: 03-16-2024 ambulatory [facility] Work Phone: Start: 03-16-2024 End: 03-16-2024 Patient encounter procedure [facility] Work Phone: Start: 03-11-2024 End: 03-11-2024 ambulatory SUSHIL PAK Not Available Start: 04-14-2022 Encounter for preprocedural laboratory examination DR MALACHI PENA [facility] Start: 04-13-2022 End: 04-14-[address] SUSHIL PAK Facility:[facility] Start: 04-13-2022 End: 04-14-2022 Encounter for preprocedural laboratory examination DR SUSHIL PAK Facility:[facility] Start: 02-04-2022 End: 02-04-2022 ambulatory Danelle Silva Other [employer] Other Start: 02-04-2022 Office outpatient vi sit 15 minutes Danelleevelina Silva [facility] Start: 09-23-2021 End: 09-23-2021 ambulatory Essenceamandeep Ledezma Other [employer] Other Start: 09-23-2021 Office outpatient vi sit 15 minutes Essence Brisa [facility] Start: 07-19-2021 Office outpatient vi sit 15 minutes Danelleprabhjot Silva [facility] Procedures Date Procedure Procedure Detail Performing Clinician Start: 11-05-2019 Colonoscopy Sushil perez MD Work Phone: Plan of Treatment Date Care Activity Detail Author Start: 11-05-2029 Screening for malignant neoplasm of colon [facility] Start: 02-20-2026 Urine screening for protein Diabetes: Urine Protein Screening [facility] Start: 10-17-2025 Glaucoma screening Diabetes: Retinopathy Screening [facility] Start: 05-23-2025 Hemoglobin A1c measurement Diabetes: Hemoglobin A1C [facility] Start: 04-26-2025 End: 02-24-2026 Hemoglobin A1c/Hemoglobin.total in Blood Hemoglobin A1c Lab Routine Type 2 diabetes mellitus with hyperglycemia, without long-term current use of insulin (CMS/HCC) Expected: 04/26/2025, Expires: 02/24/2026 [facility] Work Phone: Comment on above: Expected: 04/26/2025, Expires: Start: 02-24-2025 End: 02-24-2025 Patient encounter procedure 02/24/2025 8:30 AM EDT Office Visit [facility] [address] [place] [address] Sushil Pak MD [address] [place] [address] Benign essential hypertension (CMS/HCC); Microalbuminuria; Type 2 [...] [address] [place] [address] Sushil Pak MD [address] [place] [address] (Fax) [facility] Start: 02-03-2025 End: 02-03-2025 Patient encounter procedure 02/03/2025 10:00 AM EDT Office Visit [facility] [address] [place] [address] Sushil Pak MD [address] [place] [address] (Fax) [facility] Start: 01-15-2025 Hemoglobin A1c measurement Diabetes: Hemoglobin A1C [facility] Start: 12-10-2024 Urine screening for protein Diabetes: Urine Protein Screening [facility] Start: 10-22-2024 End: 10-22-2024 Patient encounter procedure [facility] Comment on above: Benign essential hypertension ([facility]); Microalbuminuria; Type 2 diabetes mellitus with both eyes affected by mild nonproliferative retinopathy without macular edema, without long-term current use of insulin ([facility]); Hyperuricemia; Former cigarette smoker; Morbid obesity due to excess calories ([facility]) Start: 10-18-2024 Hemoglobin A1c measurement Diabetes: Hemoglobin A1C [facility] Start: 10-15-2024 End: 10-15-2024 Patient encounter procedure 10/15/2024 10:00 AM EST Office Visit [facility] [address] [place] [address] Sushil Pak MD [address] [place] [address] (Fax) [facility] Start: 10-14-2024 End: 10-14-2024 Patient encounter procedure 10/14/2024 11:45 AM EST Office Visit [facility] [address] [place] [address] Sushil Pak MD [address] [place] [address] (Fax) Arrived [facility] Comment on above: Arrived Start: 10-10-2024 Glaucoma screening Diabetes: Retinopathy Screening [facility] Start: 09-20-2024 End: 07-21-2025 Hemoglobin A1c/Hemoglobin.total in Blood Hemoglobin A1c Lab Routine Type 2 diabetes mellitus with hyperglycemia, without long-term current use of insulin ([facility]) Expected: 09/20/2024 (Approximate), Expires: 07/21/2025 [facility] Work Phone: Comment on above: Expected: 09/20/2024 (Approximate), Expi res: 07/21/2025 Start: 07-21-2024 End: 07-21-2024 Patient encounter procedure [facility] Comment on above: Arrived Start: 06-05-2024 Hemoglobin A1c measurement Diabetes: Hemoglobin A1C [facility] Start: 1950 Screening for malignant neoplasm of colon [facility] Payers Date Payer Category Payer Medicare (Managed Care) [employer] [id number] 1959 Medicare [id number] 1950 Unknown [id number] 1950 Unknown [id number] .1259 1950 Unknown [id number] .1259 1950 Unknown [id number] .1259 1950 Unknown [id number] .1259 1950 Unknown [id number] .1259 1950 Unknown [id number] .1259 Medicare [id number] Medicare Medicare [id number] Unknown [id number] Unknown Cheo ANABELA/RAISSA [id number] Social History Date Type Detail Facility Unknown if ever smoked [facility] [employer] Other Start: 08-03-2023 End: 02-04-2025 Sex Assigned At [facility] [employer] Other Start: 03-16-2024 Tobacco smoking status [facility] Never smoked tobacco (finding) [facility] Start: 1950 Sex Assigned At Male [facility] Start: 03-11-2024 Tobacco smoking status [facility] Ex-smoker [facility] Start: 10-01-1965 End: 10-01-1990 History of tobacco use Current smoker [facility] Start: 10-01-1965 End: 10-01-1990 History of tobacco use Cigarette Smoker [facility] Start: 03-11-2024 End: 02-04-2025 Cigarettes smoked current (pack per day) - Reported 1 [facility] Start: 03-11-2024 Tobacco use and exposure Smokeless tobacco non-user [facility] Start: 03-11-2024 End: 02-24-2025 Alcoholic beverage intake Ex-drinker (finding) [facility] Within the last year , have you been afraid of your partner or ex-partner? No [facility] Do you belong to any clubs or organizations such as orthodoxy groups, unions, fraternal or athletic groups, or [...] Thin Lancets) 30 gauge misc Start: 03-16-2024 [id number] Start: 11-24-2022 End: 11-18-2025 Use to inject 1 time daily as directed. [id number] Start: 11-18-2024 End: 11-18-2025 Functional Status Date Assessment Result Facility 02-24-2025 Patient Health [facility] ionnaire 2 item (PHQ-2) [Reported] [facility] Clinical Notes 07-19-2021 to 02-24-2025 [...] check BLOOD SUGAR TWICE DAILY Continuous Glucose Choker Hooker (FreeStyle Bridger 3 Curlew) device 1 Device See administration instructions Using Bridger 3 plus sensors 1 each 0 insulin degludec (Tresiba FlexTouch) 100 UNIT/ML injection Inject 10 Units under the skin Daily 15 mL 0 insulin pen needle 31G X 8 mm misc Use to inject 1 time daily as directed. 100 each 0 Lancets (OneTouch Delica Plus Foyzco01A) misc USE DIRECTED TWICE DAILY and NEEDED [...] edema, without long-term current use of insulin ([facility]) He has been out of his glucose sensor for 2 full weeks or more. - Continuous Glucose Sensor (FreeStyle Bridger 3 Plus Sensor) [facility]; Inject 1 Device into the skin Every [...] encouraged lifestyle activities. documented in this encounter [facility] 01-14-2025 History of Present illness Narrative The letter is generated. A front to Dotty. documented in this encounter [facility] 10-22-2024 History of Present illness Narrative Images [...] to check BLOOD SUGAR TWICE DAILY Lancets (UpTapTouch Delica Plus [id number]) misc USE DIRECTED TWICE DAILY and NEEDED 200 each 3 losartan (Cozaar) 50 MG tablet Take 1 tablet (50 mg) by mouth in the morning. 90 tablet 0 metFORMIN XR (Glucophage-XR) 750 MG 24 hr tablet Take 1 tablet (750 mg) by mouth in the morning and 1 tablet (750 mg) before bedtime. Do not crush, chew, or split.. 180 tablet 0 UpTapTouch Verio test strip 1 each by Other [...] for 7 days 7 tablet 0 [DISCONTINUED] qtvatoaoeqicnhe-KX-NG (Capmist DM) 60-15-400 MG tablet Take 1 [...] hyperglycemia, without long-term current use of insulin ([facility]) We had a rather long discussion today. [...] edema, without long-term current use of insulin ([facility]) In prescribing a new medication consideration of [...] morning. Take before meals. - Continuous Glucose Choker Hooker (360TStyle Bridger 3 Curlew) device; 1 Device See administration instructions - [...] start smoking again. documented in this encounter [facility] 10-14-2024 History of Present illness Narrative Images [...] nasal congestion which is not improving with otyu-zpw-xauwijq medication. Notes he has maxillary pain. Had [...] to check BLOOD SUGAR TWICE DAILY Lancets (UpTapTouch Delica Plus [id number]) [facility] USE DIRECTED TWICE DAILY and NEEDED 200 [...] hyperglycemia, without long-term current use of insulin ([facility]) Historically is not been to A1c goal. [...] evaluation and management. documented in this encounter [facility] 07-21-2024 History of Present illness Narrative Images [...] to check BLOOD SUGAR TWICE DAILY Lancets (UpTapTouch Delica Plus Ftcfto01I) mis USE DIRECTED TWICE DAILY and NEEDED [...] hyperglycemia, without long-term current use of insulin ([facility]) (Primary) We had a long discussion today [...] he is missing. documented in this encounter [facility] 08-02-2022 Note PROCEDURE: [employer] Signa HDXT 1.5 Sagittal T1, T2, STIR [...] hemilaminectomy. Report reported and signed by Fabian Hollis on 08/02/2022 [address] [facility] [employer] 03-13-2022 Note HISTORY: Cough, SOB, s/p COVID PROCEDURE: [place] VCT 64. Using high resolution CT technique [...] signed by Fabian Hollis on 03/13/2022 [address] [facility] [employer] 02-04-2022 Evaluation note Encounter Date Diagnosis Assessment [...] weeks for the cough to go away. [employer] Other 12-24-2021 Evaluation note* Encounter Date Diagnosis [...] Patient care instructions given in writting by [facility] Care At Home document. [employer] Other 10-19-2021 Evaluation note* Encounter Date Diagnosis [...] Patient care instructions given in writting by [facility] Care [facility] Home document. [employer] Other Evaluation note* Diagnosis Onset Date Resolution Status Viral URI with cough acute [facility] Work Phone: Evaluation note* Diagnosis Type 2 diabetes mellitus with hyperglycemia, without long-term current use of insulin (CMS/HCC)- Primary Benign essential hypertension (CMS/HCC) Essential hypertension, benign Hyperuricemia Other abnormal blood chemistry Non-alcoholic fatty liver disease Class 1 obesity due to excess calories with serious comorbidity and body mass index (BMI) of 33.0 to 33.9 in adult documented in this encounter [facility] Healthcare[facility] note* Diagnosis Benign essential hypertension (CMS/HCC) Essential hypertension, benign Microalbuminuria Proteinuria Type 2 diabetes mellitus with hyperglycemia, without long-term current use of insulin ([facility]) Type 2 diabetes mellitus with both eyes affected by mild nonproliferative retinopathy without macular edema, without long-term current use of insulin ([facility]) Hyperuricemia Other abnormal blood chemistry Morbid obesity due to excess calories ([facility]) Former cigarette smoker Personal history of tobacco use, presenting hazards to health documented in this encounter [facility]* Diagnosis Bronchitis- Primary Bronchitis, not specified as acute or chronic Type 2 diabetes mellitus with hyperglycemia, without long-term current use of insulin ([facility]) documented in this encounter [facility]* Diagnosis Benign essential hypertension ([facility]/HCC)- Primary Essential hypertension, benign Hypertensive nephropathy ([facility]) Unspecified hypertensive kidney disease with chronic kidney disease stage I through stage IV, or unspecified Microalbuminuria Proteinuria Diabetic nephropathy associated with type 2 diabetes mellitus (HCC) ([facility]) Type 2 diabetes mellitus with hyperglycemia, without long-term current use of insulin ([facility]) Type 2 diabetes mellitus with both eyes affected by mild nonproliferative retinopathy without macular edema, without long-term current use of insulin ([facility]) Hyperuricemia Other abnormal blood chemistry Former cigarette smoker Personal history of tobacco use, presenting hazards to health Non morbid obesity due to excess calories documented [facility] Narrative - Reported* Type Description Date Medical History hypertension Medical History diabetes mallitus Surgical History right shoulder X2 Surgical History back surgery Surgical History hernia repair Surgical History hemorrhoidectomy Surgical History L carpal tunnel release Hospitalization History See Above [employer] Other Summary Purpose Family History No Family [...] and content) DATE CREATED AUTHOR 04/19/2022 [facility] DATE CREATED AUTHOR AUTHOR'S ORGANIZ ATION 08/03/2022 [facility] DATE CREATED AUTHOR AUTHOR'S ORGANIZ ATION 02/27/2025 [facility] DATE CREATED AUTHOR AUTHOR'S ORGANIZ ATION 02/27/2025 [facility] EPIC Care Teams (unrecognized sec tion and content) Team Status: Active Member Role Status Dates Sushil Pak MD Primary Care Provider Active Team Status: Inactive Member Role Status Dates Sushil Pak MD Primary Care Provider Active Start: March 16, 2024 End: March 16, 2024 Amy Grover APRN Attending Provider Active Start: March 16, 2024 End: March 16, 2024 Supervisory Cbp Officer Relationship Specialty Start Date End Date Sushil Pak MD [address] [place] [address] (Fax) PCP - Cheo TAYLOR 10/01/21 Sushil Pak MD [address] [place] [phone] PCP - General Family Medicine 11/29/23 Satish Ruvalcaba MD [address] [place] [phone] Referring Physician Ophthalmology 12/26/23 Supervisory Cbp Officer Relationship Specialty Start Date End Date Sushil Pak MD [address] [place] [address] PCP - Cheo TAYLOR 10/01/21 Sushil Pak MD [address] [place] [phone] PCP - General Family Medicine 11/29/23 Satish Ruvalcaba MD [address] [place] [address] Referring Physician Ophthalmology 12/26/23 Supervisory Cbp Officer Relationship Specialty Start Date End Date Sushil Pak MD [address] [place] [phone] (Fax) PCP - Cheo TAYLOR 10/01/21 Sushil Pak MD [address] [place] [phone] PCP - General Family Medicine 11/29/23 Satish Ruvalcaba MD [address] [place] [phone] Referring Physician Ophthalmology 12/26/23 Supervisory Cbp Officer Relationship Specialty Start Date End Date Sushil Pak MD [address] [place] [address] (Fax) PCP - Cheo TAYLOR 10/01/21 Sushil Pak MD [address] [place] [address] (Fax) PCP - General Family Medicine 11/29/23 Satish Ruvalcaba MD [address] [place] [address] Referring Physician Ophthalmology 12/26/23 Supervisory Cbp Officer Relationship Specialty Start Date End Date Sushil Pak MD [address] [place] [address] (Fax) PCP - Cheo TAYLOR 10/01/21 Sushil Pak MD [address] [facility] [[email or web address] [address] [place] [address] (Fax) PCP - General Family Medicine 11/29/23 Satish Ruvalcaba MD [address] [place] [phone] Referring Physician Ophthalmology 12/26/23 Supervisory Cbp Officer Relationship Specialty Start Date End Date Sushil Pak MD [address] [facility] [[email or web address] [address] [place] [address] (Fax) PCP - Cheo TAYLOR 10/01/21 Sushil Pak MD [address] [address] (Fax) PCP - General Family Medicine 11/29/23 Satish Ruvalcaba MD [address] [place], [place] [phone] Referring Physician Ophthalmology 12/26/23 Supervisory Cbp Officer Relationship Specialty Start Date End Date Sushil Pak MD [address] [address] (Fax) PCP - Cheo TAYLOR 10/01/21 Sushil Pak MD [address] [address] (Fax) PCP - General Family Medicine 11/29/23 Satish Ruvalcaba MD [address] [place] [phone] Referring Physician Ophthalmology 12/26/23 Supervisory Cbp Officer Relationship Specialty Start Date End Date Sushil Pak MD [address] [address] (Fax) PCP - Cheo TAYLOR 10/01/21 Sushil Pak MD [address] [address] (Fax) PCP - General Family Medicine 11/29/23 Satish Ruvalcaba MD [address] [place], [place] [phone] Referring Physician Ophthalmology 12/26/23 Jojo Jc LPN 01/01/25 Supervisory Cbp Officer Relationship Specialty Start Date End Date Sushil Pak MD [address] [address] (Fax) PCP - Cheo TAYLOR 10/01/21 Sushil Pak MD [address] [address] (Fax) PCP - General Family Medicine 11/29/23 Satish Ruvalcaba MD [address] [place], [place] [phone] Referring Physician Ophthalmology 12/26/23 Jojo Jc LPN 01/01/25 Supervisory Cbp Officer Relationship Specialty Start Date End Date Sushil Pak MD [address] [address] (Fax) PCP - Cheo TAYLOR 10/01/21 Sushil Pak MD [address] [address] (Fax) PCP - General Family Medicine 11/29/23 Satish Ruvalcaba MD [facility] [place] [address] Referring Physician Ophthalmology 12/26/23 Jojo Jc LPN [...] BE BASED ON THE PRIMARY CLINICAL RECORDS. [employer] provides no warranty or guarantee of the accuracy or completeness of information in this document.
--- OUTSIDE RECORDS SUMMARY | 2025-03-22 15:46 | XMS_ITS | Encounter Summary ---
Author Organization [employer] Address [id number] [address] [place] [address] Care Team Providers Care Jewelsmith Name Role Phone Herman West MD Primary Care Provider [phone] Encounter Details Date Type Department Care Team (Late st Contact Info) Description 03/22/2025 3:46 PM EDT - 03/25/2025 4:07 PM EDT Emergency [facility] Tele Stroke [address] [place] [phone] Discharge Disposition: Telemedicine Discharge Social History Tobacco Use Types Packs/Day Years Used Date Smoking Tobacco: Never Smokeless Tobacco: Former Alcohol Use Standard Drinks/Week Comments Never 0 (1 standard drink = 0.6 oz pur e alcohol) AUDIT-C Answer Date Recorded Frequency of Alcohol Consumption Never 07/25/2019 Average Number of Drinks Not on file 019 Frequency of Binge Drinking Not on file 07/02 Childcare Answer Date Recorded Childcare Unknown 03/12/2019 Employment Answer Date Recorded Employment Unknown 03/12/2019 Purpose - Life Answer Date Recorded Purpose and direction in life Unknown Sex and Gender Information Value Date Recorded Sex Assigned at Not on file Legal Sex Male 11:33 AM EDT Gender Identity Not on file Sexual Orientation Not on file documented as of this encounter Medications at Time of Discharge acarbose (PRECOSE) 100 MG tablet Take 100 mg by mouth 3 (three) times a day. 07/30/2019 allopurinol (ZYLOPRIM) 100 mg tablet Take 100 mg by mouth daily. losartan (COZAAR) 25 mg tablet Take 25 mg by mouth daily. metFORMIN (GLUCOPHAGE) 500 mg tablet Take 1 tablet by mouth 2 (two) times a day. documented as of this encounter Miscellaneous Notes * Telehealth Consult - Nighat Rabago MD - 03/23/2025 10:25 AM EDT Images from the original note were not included. Consults Tele-Stroke Telemedicine Consult Note Consent Statement: I discussed risks, benefits, and alternatives of a real-time synchronous audiovisual consultation with the patient (and any accompanying persons) including the risks that the patient's personal health details and medical records will be discussed over real-time, synchronous, interactive video/audio/telecommunication technology, the visit will not be recorded without the express consent of both the provider and the patient, and that there are some limitations compared to bhiv-zu-aonu evaluations. We elected to proceed. TELESTROKE CONSULTATION NOTE Facility:[facility] Stroke Alert notification: 03/22/2025 Telestroke Activation: 03/23/2025 Stroke Cart Used?Yes Patient Evaluated: Floor Chief Complaint of: left visual field deficit History of Present Illness: Gregorio Kirkland is a 74-year-old gentleman who presented to [facility] Emergency Department with left visual field deficit. It was black in his left eye visual field like looking over a ledge.He denies any other visual symptoms. He does have a significant past medical history of diabetes, gout, diabetic retinopathy, [place]. His blood pressure on arrival was over 170. He was noncontrast CT wasnegative for acute process. He has bilateral carotid disease was left over right carotid plaque. MRI of the brain appears to be negative for acute process. ESR is 26. He was initiated on aspirin 81 mg and Plavix 75 mg daily. Telestroke consulted for recommendations. Patient is sitting up in a chair. He is alert and oriented. States that his vision has not improved. He continues missing the lower half of his left eye vision. Denies previous vision issues with hishistory of diabetic retinopathy and it is completely painless. Last known well: 5pm 03/21/25 Current use of anticoagulants: No AC EC Arrival: 03/22/25 ACCESS Call:03/22/2025 Time of Camera Evaluation:03/23/2025 1145 Thrombolytics: No, outside the time window TNK Bolus Time: N/A Past Medical History: Diagnosis Date Diabetes mellitus type 2, controlled ([facility]) Hypertension Sleep apnea cpap Past Surgical History: Procedure Laterality Date ARTHROSCOPY REPAIR ROTATOR CUFF SHOULDER Right 08/20/2019 Performed by Ayaan Burrell DO at [facility] ARTHROSCOPY SHOULDER Right 08/20/2019 Performed by Ayaan Burrell DO at [facility] BACK SURGERY CARPAL TUNNEL RELEASE left HEMORRHOID SURGERY x 2 HERNIA REPAIR SHOULDER SURGERY right rotator cuff Medication List ASK your doctor about these medications Instructions Last Dose Given Next Dose Due acarbose 100 MG tablet Commonly known as: PRECOSE Take 100 mg by mouth 3 (three) times a day. allopurinoL 100 mg tablet Commonly known as: ZYLOPRIM Take 100 mg by mouth daily. losartan 25 mg tablet Commonly known as: COZAAR Take 25 mg by mouth daily. metFORMIN 500 mg tablet Commonly known as: GLUCOPHAGE Take 1 tablet by mouth 2 (two) times a day. Prior to Admission medications Not on File No current facility-administered medications on file prior to encounter. Current Outpatient Medications on File Prior to Encounter Medication Sig Dispense Refill acarbose (PRECOSE) 100 MG tablet Take 100 mg by mouth 3 (three) times a day. allopurinol (ZYLOPRIM) 100 mg tablet Take 100 mg by mouth daily. losartan (COZAAR) 25 mg tablet Take 25 mg by mouth daily. metFORMIN (GLUCOPHAGE) 500 mg tablet Take 1 tablet by mouth 2 (two) times a day. No Known Allergies TOBACCO: former ETOH: denies RECREATIONAL DRUG USE: denies No family history on file. No family history on file. Physical Exam: There were no vitals filed for this visit. Please note that parts of the physical exam were performed with assistance from bedside nursing staff. NIH Stroke Scale 1a Level of consciousness: 0=alert; keenly responsive 1b. LOC questions: 0=Performs both tasks correctly 1c. LOC commands: 0=Performs both tasks correctly 2. Best Gaze: 0=normal 3. Visual: 1=Partial hemianopia 4. Facial Palsy: 0=Normal symmetric movement 5a. Motor left arm: 0=No drift, limb holds 90 (or 45) degrees for full 10 seconds 5b. Motor right arm: 0=No drift, limb holds 90 (or 45) degrees for full 10 seconds 6a. motor left le=No drift, limb holds 90 (or 45) degrees for full 10 seconds 6b Motor right le=No drift, limb holds 90 (or 45) degrees for full 10 seconds 7. Limb Ataxia: 0=Absent 8. Sensory: 0=Normal; no sensory loss 9. Best Language: 0=No aphasia, normal 10. Dysarthria: 0=Normal 11. Extinction and Inattention: 0=No abnormality NIHSS1 General Appearance: alert, cooperative Head: Normocephalic, without obvious abnormality, atraumatic Eyes: EOMIs. Vision seems intact, although exam is limited. Lungs: non-labored. Heart: on monitor Abdomen: no overt distention Extremities: extremities normal, atraumatic, no cyanosis or edema Skin: Skin color, texture, turgor normal. No rashes or lesions Neurologic: no acute process Data Reviewed: Labs: Lipid Panel: No results found for: CHOL , TRIG , HDL , CHOLHDLR CBC: No results found for: WBC , RBC , HGB , HCT , MCV , RDW , PLT BMP: Lab Results Component Value Date K 4.0 07/25/2019 CL 99 07/25/2019 CO2 31 07/25/2019 BUN 15 07/25/2019 CREATININE 0.77 07/25/2019 GLU 281 (H) 07/25/2019 Radiology: CT head: No acute process CTA: Bilateral carotid plaque MRI brain: No acute process Echocardiogram 03/04/2024 revealed normal EF at 55%. Mild bilateral atrial dilation ASSESSMENT & PLAN Concern for a CRAO left eye or BRAO - as evidence of negative MRI and continued eye visual field deficit - continue aspirin 81 mg and plavix 75 mg for 21 days, then aspirin daily alone - add statin therapy - would recommend repeat Echocardiogram - 30 day event monitor at discharge - follow up with ophthalmology outpatient. Hypertension - recommend patient monitor his blood pressure at home for ideal SBP<130 Additional Recommendations: We will recommend that he follows up with stroke clinic in 4-6 weeks. In preparation of caring for this patient, Sandra Atwood APRN-PENELOPE, assisted with documentation during the assessment of this patient. If you have any further questions please feel free to contact the Telestroke/ Stroke Team. Thank you for asking us to be part of this patient's care. [id number] Telestroke Consult from 30-50 minutes This note was completed using a voice label folder system. Every effort was made to ensure accuracy; however, inadvertent computerized label folder errors may be present Insert Physician Attestation: In preparation of caring for this patient, I, Nighat Rabago MD, was the primary provider of care for this patient. I personally reviewed previous medical history, laboratory studies, neuro-imaging, and completed a face to face physical assessment on this patient via camera. To the best of my ability, the assessment and plan was discussed with patient and bedside staff. HUBERT Rivero 03/23/25 1532 Patient seen and examined with PAU. I agree with the main component with the PAU note including theHPI, ROS, Physical exam and assessment and plan. documented in this encounter Plan of Treatment Not on file documented as of this encounter Visit Diagnoses Not on filedocumented in this encounter Care Teams Jewelsmith Relationship Specialty Start Date End Date Herman West MD PCP - General Family Medicine 07/25/19 documented as of this encounter
--- NOTE | 2025-03-22 15:59 | MR_ITS ---
The [address] [address] Patient Name: GO ALVAREZ MRN: [id number] date: 1950 Sex: M Assigned Patient Location: [place] Current Patient Location: [place] Accession/Order Number: [id number] Exam Date: 03/23/2025 10:19 Report Date: 03/23/2025 10:24 At the request of: EUGENE JOSEPH MD Procedure: MR head/brain wo con MR head/brain wo con 03/23/2025 9:35 AM SIGN AND SYMPTOMS: Altered mental status, vision loss in left eye PROTOCOL: Multiplanar multisequence MR brain without IV contrast COMPARISON: None. FINDINGS: Extra axial spaces: There is mild age-related cortical atrophy. Hemorrhage: None. Ventricular system: Within normal limits. Basal cisterns: Within normal limits and not effaced. Cerebral parenchyma: Normal in signal. Midline shift: None.. Cerebellum: Within normal limits. Brainstem: Within normal limits. OTHER: Calvarium: Normal marrow signal. Vascular system: Satisfactory flow voids within the anterior and posterior circulation. Visualized Paranasal sinuses: Within normal limits. Visualized Orbits: Within normal limits. Visualized upper cervical spine: Within normal limits. Sella and skull base: Within normal limits. MR/MR head/brain wo con IMPRESSION: No acute intracranial pathology. 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 Impression dictated by: Francisco Lazcano M.D. 03/23/2025 10:24 AM Dictation Location: [place] [address] Electronically authenticated by: [id number] Y Date: 03/23/2025 10:24
[2025-03-22 16:19] LABS: C Reactive Protein <0.50 mg/dL (<=0.50)
[2025-03-22 16:21] LABS: Erythrocyte Sedimentation Rate 26 mm/hr (<=20)
[2025-03-22] MEDS: ASPIRIN 81 MG TABLET.DR PO (16:25)
--- NOTE | 2025-03-22 17:43 | CA_ITS ---
Patient Name: GO ALVAREZ MR#: [id number] : 1950 Exam Date: 03/23/2025 Ordering Doctor: DR EUGENE JOSEPH . ECHOCARDIOGRAM REPORT PROCEDURE: CA ECHO DOPPLER COMPLETE INDICATIONS: cva COMPARISON: None. DESCRIPTION: COMPLETE ECHOCARDIOGRAM Real-time transthoracic echocardiography with 2D, M-mode, spectral and color flow Doppler performed. QUALITY: Technical quality was adequate. LEFT VENTRICLE: Normal chamber size. Thickened posterior wall. Mild concentric hypertrophy. Global left ventricular systolic function is at the lower limits of normal. LV EF: Estimated left ventricular ejection fraction is 50-55%. DIASTOLIC: Diastolic function is indeterminate. ATRIAL SEPTUM: LEFT ATRIUM: Mild dilatation. RIGHT ATRIUM: Moderate dilatation. RIGHT VENTRICLE: Normal chamber size. Normal right ventricular systolic function. TRICUSPID VALVE: Normal mobility and thickness. No stenosis with trivial regurgitation. Unable to assess right-sided pressures due to lack of measurable tricuspid regurgitation. MITRAL VALVE: Normal mobility and thickness. No evidence of mitral valve stenosis. There is no mitral annular calcification. Trivial mitral regurgitation. AORTIC VALVE: Normal trileaflet appearance. Thickened aortic valve. The right coronary leaflet is restricted in mobility. No evidence of aortic valve stenosis. No aortic regurgitation. AORTIC ROOT: Moderately dilated, Measuring 4.4 cm. The ascending aorta is borderline dilated at 3.7 cm. PULMONIC VALVE: Normal thickness and mobility. No stenosis. Trivial regurgitation. PERICARDIUM: No evidence of pericardial effusion. IVC: Collapses with inspiration. Normal size. PLEURA: CONCLUSION: 1. Mild concentric left ventricular hypertrophy with low normal systolic function. LVEF is estimated at 50 to 55%. 2. Normal right ventricular size and systolic function. 3. Mild to moderate biatrial dilatation. 4. No significant valvular dysfunction. 5. Unable to assess right-sided pressures due to lack of measurable tricuspid regurgitation. 6. Moderately dilated aortic root measuring 4.4 cm. The ascending aorta measures 3.7 cm. Adult Echocardiography Procedure Report Left Ventricle LVEDD (3.7 - 5.6 cm): 4.91 cm LVESD (2.2 - 4.0 cm): 3.25 cm LVIVS thickness (0.6 - 1.2 cm): 1.10 cm LVPW thickness (0.5 - 1.0 cm): 1.38 cm e': 0.07 m/s E - e': 8.86 LVOT Max Gradient: 3.89 mm[Hg] LVOT Area (cm2): 0.99 m/s Peak Velocity (LVOT): 0.99 m/s Mean Velocity (LVOT): 0.67 m/s LVOT Diameter 2.41 cm Left Ventricular Ejection Fraction: 50-55 % Left Atrium LA Volume Index (2D A2C): 31.05 ml/m2 Left Atrium Systolic Dimension: 4.24 cm Mitral Valve MV E to A Ratio: 0.67 Mitral Valve A-Wave Peak Velocity: 0.97 m/s Mitral Valve E-Wave Peak Velocity: 0.66 m/s Right Ventricle RV Internal Diastolic Dimension: 4.42 cm Aorta AO Root Diam: 4.37 cm Ascending Ao Diam: 3.68 cm Aortic Valve AoV Area (Peak Burt): 2.70 cm2, 2.70 cm2 AoV Area (VTI): 2.81 cm2, 2.81 cm2 Peak Velocity(Antegrade Flow): 1.67 m/s Peak Gradient(Antegrade Flow): 11.12 mm[Hg] Mean Velocity(Antegrade Flow): 1.25 m/s Mean Gradient(Antegrade Flow): 6.82 mm[Hg] Velocity Time Integral: 29.30 cm Tricuspid Valve Peak Velocity (Regurgitant Flow): 1.55 m/s Pulmonic Valve Peak Velocity: 0.93 m/s Peak Gradient: 3.75 mm[Hg], 3.17 mm[Hg] Right Atrium Right Atrium Systolic Pressure: 90.79 ml, 90.79 ml Dictated by: Eran Galindo M.D. on 03/23/2025 at 17:32 Approved by: Eran Galindo M.D. on 03/23/2025 at 17:40
--- NOTE | 2025-03-22 17:44 | P.HP_ITS ---
HPI H&P: HPI History of Present Illness Chief complaint: Stroke like symptoms vision disburtance Narrative: Patient presented to the emergency room after he noticed in his left visual field like the lower of his left visual field and the last thing that, is just black, like he is looking over a ledge, describes no other neurological symptoms no difficulty with his speech no difficulty with word finding no left arm or right arm weakness no left leg or right leg weakness, agrees no difficulty with his speech, face is symmetrical without weakness and no difficulty swallowing Workup in the ER with CT and CTA showed no obvious stroke or vascular pathology, case was discussed with telestroke and they recommended patient observed overnight and in need of an MRI in the a.m. When I met patient up in the medical surgical floor, he was resting comfortably at the edge of the bed ready to eat dinner, no complaints, just the visual field, I noticed no difficulty with his speech when I did and discussed with him medications he is taking he is already taking a baby aspirin probably about every other day. Opioid HPI Opioid Management Most Recent Pain and Opioid Data: Last Pain Assessment Today, 15:58 Last ORT Total Score 0 Today, 15:27 Last ORT Risk Category Low Risk Today, 15:27 Review of Systems ROS Status of ROS 10 or more systems reviewed and unremark able except as noted in history and below PFSH PFSH Medical History (Updated 03/22/25 @ 17:48 by Maurice Bowen MD) Diabetes ?E11.9 - Type 2 diabetes mellitus without complications (ICD-10) Gout ?M10.9 - Gout, unspecified (ICD-10) Diabetic retinopathy ?E11.319 - Type 2 diabetes mellitus with unspecified diabetic retinopathy without macular edema (ICD-10) Surgical History (Updated 03/22/25 @ 16:15 by Christina Dasilva) History of hernia surgery ?Z98.890 - Other specified postprocedural states (ICD-10) ?Z87.19 - Personal history of other diseases of the digestive system (ICD-10) History of back surgery ?Z98.890 - Other specified postprocedural states (ICD-10) History of torn meniscus of right knee ?Z87.828 - Personal history of other (healed) physical injury and trauma (ICD-10) Rotator cuff impingement syndrome of right shoulder ?M75.41 - Impingement syndrome of right shoulder (ICD-10) Cataract ?H26.9 - Unspecified cataract (ICD-10) Family History (Updated 03/22/25 @ 16:16 by Christina Dasilva) Father Family history of COPD (chronic obstructive pulmonary disease) Family history of diabetes mellitus Aunt Family history of diabetes mellitus Grandmother Family history of stroke Social History (Updated 03/22/25 @ 16:17 by Christina Dasilva) Within the past year, how often did you have a drink containing alcohol: never Score interpretation: A score less than 4 is consistent with normal alcohol consumption. Smoking status: Former smoker Non-prescribed substance use: denies use Previous occupational history: retired Highest level of school completed/degree received: 8th grade Are you now , , , , never or living with a partner: Little interest or pleasure in doing things: not at all Feeling down, depressed, or hopeless: not at all Meds Home Medications and Allergies Home Medications ?Medication ?Instructions ?Recorded ?Confirmed ?Type allopurinol 100 mg tablet 100 mg PO DAILY 03/22/25 History insulin degludec 100 unit/mL (3 10 unit subcut Q24H 03/22/25 History mL) subcutaneous pen (Tresiba FlexTouch U-100 insulin) losartan 50 mg tablet 50 mg PO DAILY 03/22/2503/02 History metformin 750 mg tablet,extended 750 mg PO DAILY 03/2203/22/25 History release 24 hr Allergies Allergy/AdvReac Type Severity Reaction Status Date / Time No Known Drug Allergies Allergy Verified 03/22/25 10:00 Exam Constitutional Vital Signs, click to edit/add: Last Vital Signs Temp 97.3 F L 03/22/25 15:27 Pulse 84 03/22/25 16:31 Resp 20 03/22/25 15:27 BP 137/71 03/22/25 15:27 Pulse Ox 95 03/22/25 15:27 O2 Del Method Room Air 03/22/25 15:27 Documenting provider has reviewed patient's vital signs: yes Common normals: no apparent distress Chest Common normals: inspection of chest normal Respiratory Common normals: normal respiratory effort Cardio Common normals: regular rate and regular rhythm GI Common normals: Normal to inspection, nondistended, normoactive bowel sounds present Neuro Common normals: oriented x3, CN's II-XII intact bilaterally, moves all extremities, no focal motor deficits and no sensory deficits noted Sensorium/orientation: awake, alert, oriented to person, oriented to place and oriented to time Results Labs Labs: Short CBC 03/22/25 Range/Units 10:33 WBC 5.1 (4.0-11.0) 10^3/uL Hgb 13.2 L (14.0-18.0) g/dL Hct 39.2 L (42.0-54.0) % Plt Count 156 (150-450) 10^3/uL BMP 03/22/25 10:33 Sodium 139 Potassium 4.5 Chloride 101 Carbon Dioxide 29.5 BUN 14.0 Creatinine 0.64 L Glucose 162 H Calcium 9.5 Liver Function 03/22/25 Range/Units 10:33 Total Bilirubin 0.5 (0.2-1.0) mg/dL AST 15 (15-37) U/L ALT 26 (16-63) U/L Alkaline Phosphatase 48 (46-116) U/L Albumin 3.6 (3.4-5.0) g/dL Assessment and Plan Assessment and Plan (1) Stroke-like symptom: (2) Vision disturbance: (3) Diabetes: (4) Gout: (5) Hypertension: Plan Admission findings: Sinus tachycardia, uncontrolled high blood pressure with systolic greater than 170, mild microcytic anemia and elevated glucose, physical findings of loss of left lower visual field, CT head and neck all normal Acute loss of left lower visual field-no other neurological symptoms, patient already on aspirin every other day, without history doing aspirin antibiotic combination until workup can be completed. Telestroke consult consultation, awaiting MRI scan and echocardiogram in a.m. Rbgrvuvonyjl-fsjfvmdeqqbj-tmgchvnz currently, continue to monitor closely watching for hypotension Diabetes mellitus-insulin sliding scale Microcytic anemia-can follow as an outpatient Gout-continue home medication Admission status: Patient with acute strokelike symptoms, no progression, case discussed with telestroke team recommending MRI scan medically necessary treatment will likely only span 1 midnight, observational status. If medically necessary treatment or to span 2 midnights he will be changed to inpatient status
[2025-03-22] MEDS: CLOPIDOGREL BISULFATE 75 MG TABLET PO (21:24)
[2025-03-23] VITALS (8 sets, daily range): BP systolic 129–168; BP diastolic 69–90; PULSE 85–105; TEMP 36.3–36.9; O2SAT 94–96
[2025-03-23 00:34] LABS: Glucometer 167 mg/dL (74-106)
[2025-03-23 07:59] LABS: Glucometer 234 mg/dL (74-106)
--- NOTE | 2025-03-23 08:44 | XR_ITS ---
The [address] [address] Patient Name: GO ALVAREZ MRN: [id number] date: 1950 Sex: M Assigned Patient Location: [place] Current Patient Location: [place] Accession/Order Number: [id number] Exam Date: 03/23/2025 09:22 Report Date: 03/23/2025 09:23 At the request of: ARIELLA LUCAS MD Procedure: XR foreign body eye CLAUDETTE ORBITS FOR FOREIGN BODY - 2 views CLINICAL DATA: MRI clearance. Visual changes after mowing grass. COMPARISON: CT 03/22/2025 [place] and lateral views were obtained. No orbital radiopaque foreign bodies are identified. No paranasal sinus disease is seen. No soft tissue abnormalities are identified. XR/XR foreign body eye CLAUDETTE IMPRESSION: NO EVIDENCE OF ORBITAL RADIOPAQUE FOREIGN BODY. Impression dictated by: Angie Cox M.D. 03/23/2025 9:23 AM Dictation Location: [place] [address] Electronically authenticated by: [id number] Y Date: 03/23/2025 09:23
--- NOTE | 2025-03-23 09:20 | CM.NOTE ---
Rounds made with Dr. Sy, pt will discharge back to [facility] for skilled therapy when medically stable. Dr. Sy in agreement to start precert today for pt to return for skilled therapy.
--- NOTE | 2025-03-23 09:30 | CM.NOTE ---
Rounds made with Dr. Sy, awaiting results from MRI brain, pt continues to c/o worsening vision in L eye. Teleneuro will consult on pt for furhter recommedations.
[2025-03-23] MEDS: LOSARTAN POTASSIUM 50 MG TABLET PO (09:40)
[2025-03-23] MEDS: INSULIN ASPART 300 UNIT/3 ML PEN SUBQ ×2 (09:40→12:20)
[2025-03-23] MEDS: CLOPIDOGREL BISULFATE 75 MG TABLET PO (09:40)
[2025-03-23] MEDS: ASPIRIN 81 MG TABLET.DR PO (09:40)
[2025-03-23] MEDS: ALLOPURINOL 100 MG TABLET PO (09:40)
--- NOTE | 2025-03-23 10:00 | CM.NOTE ---
Rounds made with Dr. Sy, pt will discharge to inpatient Hospice today at 3:45. Daughter at bedside and updated with plan of care.
--- NOTE | 2025-03-23 10:20 | CM.NOTE ---
Dr. Sy would like pt to be scheduled to see hand spray operator today or tomorrow for outpt appt. Pt does follow with Peg, called and appt scheduled for 2:30 today. Called cardio to see if echo could be completed JOSÉ LUIS and contacted teleneuro to see how soon pt would be see for consult. Echo will be done around 11:00 and teleneuro at 11:45.
--- NOTE | 2025-03-23 10:40 | CM.NOTE ---
Updated pt and regarding echo time and time for teleneuro. Discussed also with pt and regarding f/u appt scheduled to see applications tester at 2:30 today.
--- NOTE | 2025-03-23 11:33 | CM.NOTE ---
Important Message From Medicare discussed with pt, pt verbalizes understanding and signs paper. Original given to pt and copy placed on pt's chart.
[2025-03-23 12:04] LABS: Glucometer 147 mg/dL (74-106)
--- NOTE | 2025-03-23 12:17 | P.DS_ITS ---
DS: Providers Provider Date of admission: 03/23/25 10:05 Primary care physician: SUSHIL PAK Consults: 03/22/25 11:03 Consult to Telestroke Routine Reason for consultation: left partail loss of vision 03/22/25 15:55 Consult to Pharmacy Routine Consulting Provider: Reason for consultation: Please Glennie me when Med Rec is Updated Has provider been notified: No 03/23/25 10:05 Occupational Therapy Eval and Treat Routine Reason for consultation: CVA Physical Therapy Eval and Treat Routine Reason for consultation: CVA Speech Therapy Eval and Treat Routine Reason for consultation: CVA Anticipated date of discharge: 03/23/25 DS: Diagnosis Discharge Diagnosis (1) Stroke-like symptom: (2) Vision disturbance: (3) Diabetes: (4) Gout: (5) Hypertension: Plan As above DS: Summary Hospital Course Hospital Course: My colleague Jonathan and P note: Patient presented to the emergency room after he noticed in his left visual field like the lower of his left visual field and the last thing that, is just black, like he is looking over a ledge, describes no other neurological symptoms no difficulty with his speech no difficulty with word finding no left arm or right arm weakness no left leg or right leg weakness, agrees no difficulty with his speech, face is symmetrical without weakness and no difficulty swallowing Workup in the ER with CT and CTA showed no obvious stroke or vascular pathology, case was discussed with telestroke and they recommended patient observed overnight and in need of an MRI in the a.m. When I met patient up in the medical surgical floor, he was resting comfortably at the edge of the bed ready to eat dinner, no complaints, just the visual field, I noticed no difficulty with his speech when I did and discussed with him medications he is taking he is already taking a baby aspirin probably about every other day. My note: I am seeing Mr. Kirkland today, he is accompanied by his in the room. States that his left eye vision is not improving and mentions that its blurry, he was seen by neurology telestroke team, and was being followed up today as well. 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 I spoke to the telestroke team, they reviewed the imaging and pt's workup, recommended the following: -They think the picture is compatible with [employer] MANAGER or branch retinal artery occlusion -Recommending DAPT with aspirin and plavix for 3 weeks, then switch to aspirin 81 mg PO daily only. -Start Atorvastatin 40 mg qhs, first dose now -Recommended pt to see ophthalmology [facility], We were able to set up the pt to see ophthalmology in [place] today at 2:30 pm today -They will set him up for a follow up appointment with neurology at [facility] in 4- 6 weeks -Echo done showed: -place pt on 30 day event monitor on discharge -Pt counseled extensively on smoking cessation -Will need follow up with his PCP in regards to better control of his diabetes Recommendations were followed, I had a lengthy discussion with the pt and his in regards to the plan of management. They appreciated our efforts. Also, pt was seen by PT/OT, and PRODUCTION DESIGNER - Status at Discharge Overall status at discharge: patient is not back to baseline Time Spent with Patient Time attestation: Total time spent providing and/or coordinating discharge services: Exam Narrative Exam Narrative: Constitutional: pleasant, cooperative, sitting up in chair, not in acute distress, not ill appearing Neck: Soft, supple, non tender, no thyromegaly, no JVD, no lymphadenopathy Pulm: No wheezes or crackles, good bilateral air entry, pt is not in respiratory distress Cardio:Regular rate and regular rhythm, normal S1 and S2, no murmurs GI: Normal to inspection, nondistended, normoactive bowel sounds present Neuro NIH of 0, left lower quadrant region of his eye has decreased acquity, pt has no pain with extraocular movements, PERRLA and EOMI, no other focal motor or sensory deficits Pt is awake, alert, oriented to person, oriented to place and oriented to time Constitutional Vital Signs, click to edit/add: Last Vital Signs Temp 98.5 F 03/23/25 08:00 Pulse 105 H 03/23/25 08:00 Resp 18 03/23/25 08:00 BP 168/90 H 03/23/25 08:00 Pulse Ox 94 L 03/23/25 11:32 O2 Del Method Room Air 03/23/25 11:32 DS: Data Data Completed and Pending Labs on day of discharge: Labs from last 24 hours 03/23/25 03/23/25 03/23/25 11:52 07:36 00:32 ESR C-Reactive Protein POC Glucose 147 H 234 H 167 H 03/22/25 10:33 ESR 26 H C-Reactive Protein <0.50 POC Glucose Discharge Plan Discharge Disposition: Home, Self-Care Discharge Medications: New clopidogrel 75 mg Tablet 75 mg PO QD 20 Days Qty: 20 0RF aspirin 81 mg Tablet,Delayed Release (Dr/Ec) 81 mg PO QD 30 Days Qty: 30 0RF atorvastatin 40 mg tablet 40 mg PO QPM Qty: 30 2RF Continued allopurinol 100 mg tablet 100 mg PO DAILY insulin degludec [Tresiba FlexTouch U-100] 100 unit/mL (3 mL) insulin pen 10 unit SUBCUT Q24H metformin 750 mg tablet extended release 24 hr 750 mg PO BID Changed losartan 50 mg tablet 100 mg PO DAILY 30 Days Qty: 0 1RF Print Language: Bengali Forms: Portal Instructions
--- NOTE | 2025-03-23 12:30 | CM.NOTE ---
Pt states he follows with Dr. West for diabetes. Discussed with pt diabetic education and glucose sensors. Pt had sensor that was reading low and continued to consume food with increase of sugar. Once pt was admitted to hospital and finger stick complete, realized sensor was incorrect and not working. Pt states he has a new sensor intact and will compare to glucose monitor if this were to happen again. Pt and denies need for further diabetic education or information.
[2025-03-23 12:52] LABS: Basophils Percent Auto 0.2 % (0.2-2.0); Eosinophils Absolute Auto 0.1 10^3/uL (0.0-0.7); Eosinophils Percent Auto 0.5 % (0.9-7.0); Hematocrit 40.3 % (42.0-54.0); Hemoglobin 13.9 g/dL (14.0-18.0); Immature Granulocytes Abs Auto 0.04 10^3/uL (0.00-0.03); Immature Granulocytes Pct Auto 0.4 % (0.0-0.5); Lymphocytes Absolute Auto 1.9 10^3/uL (1.2-3.8); Lymphocytes Percent Auto 20.1 % (20.5-60.0); Mean Corpuscular HGB Conc 34.5 g/dL (29.9-35.2); Mean Corpuscular Hemoglobin 33.7 pg (25.9-34.0); Mean Corpuscular Volume 97.6 fL (80.0-94.0); Mean Platelet Volume 10.7 fL (9.5-13.5); Monocytes Absolute Auto 0.4 10^3/uL (0.3-0.8); Monocytes Percent Auto 4.1 % (1.7-12.0); Neutrophils Absolute Auto 7.1 10^3/uL (1.4-6.5); Neutrophils Percent Auto 74.7 % (43.0-75.0); Platelet Count 160 10^3/uL (150-450); Red Blood Count 4.13 10^6/uL (4.70-6.10); White Blood Count 9.5 10^3/uL (4.0-11.0)
[2025-03-23 12:55] LABS: Erythrocyte Sedimentation Rate 38 mm/hr (<=20)
[2025-03-23 13:01] LABS: Estimated Average Glucose 186 mg/dL; Glycohemoglobin A1C 8.1 % (4.5-6.2)
[2025-03-23 13:07] LABS: Alanine Aminotransferase 26 U/L (16-63); Albumin Level 3.6 g/dL (3.4-5.0); Alkaline Phosphatase 53 U/L (46-116); Anion Gap 14.5; Aspartate Amino Transferase 15 U/L (15-37); BUN Creatinine Ratio 15.4; Bilirubin Total 0.7 mg/dL (0.2-1.0); Calcium 9.5 mg/dL (8.5-10.1); Carbon Dioxide 27.5 mmol/L (21.0-32.0); Chloride 102 mmol/L (98-107); Chol HDL Ratio 2.7; Cholesterol 171 mg/dL (<=200); Estimated GFR (African America >60 (>=60 mL/min/1.73m^2); Estimated GFR (Non-African Ame >60 (>=60 mL/min/1.73m^2); Globulin 3.5 g/dL; Glucose 158 mg/dL (74-106); HDL Cholesterol 64 mg/dL (40-60); Sodium 140 mmol/L (136-145); Total Protein 7.1 g/dL (6.4-8.2); Triglycerides 152 mg/dL (<=150); VLDL CHOLESTEROL 30.4 mg/dL
--- NOTE | 2025-03-24 12:06 | CM.DCFOLLOWU ---
1st attempt 03/24/25, no contact
--- NOTE | 2025-03-25 11:52 | CM.DCFOLLOWU ---
Person spoke with:patient How are you feeling?well How is your pain?none Did you understand your discharge instructions?yes Do you have any questions about your discharge instructions?no Were you given any prescriptions at discharge?yes Were you able to get your prescriptions filled?has not heard from pharmacy to metal pickling equipment operator scripts, advised pt to call them Do you understand how to take your medications as ordered?n/a Do you have any questions about your follow up appointment and do you plan to keep your follow up appointment?no questions, plans to follow up Is there anything else that you would like to discuss?no Questions/Comments/Concerns/Other:none
--- OUTSIDE RECORDS SUMMARY | 2025-04-08 15:08 | XMS_ITS | Encounter Summary ---
Author Organization [facility] Address [address] [place] [address] Care Team Providers Care Larry Car Operator Name Role Phone Herman Pak MD Unavailable [phone] Herman Pak MD Primary Care Provider [phone] Satish Ruvalcaba MD Unavailable [phone] Jojo Jc LPN Unavailable Encounter Details Date Type Department Care Team (Late st Contact Info) Description 03/06/2024 Clinisync Result Encounter [facility] External Department Unsolicited Herman Pak MD [address] [place] [address] Social History Tobacco Use Types Packs/Day Years Used Date Smoking Tobacco: Former Cigarettes 1 25 0 10/01/1965 - 10/01/1990 Smokeless Tobacco: Never Comments:Quit 1990 Alcohol Use Standard Drinks/Week Comments Not Currently 0 (1 standard drink = 0.6 oz pure alcohol) Caffeine intake ; 1-2 cups perday coffee Humiliation, Afraid, Rape, and Kick questionnair e Answer Date Recorded Within the last year, have y ou been afraid of your partner or ex-partner? No 08/03/2023 Within the last year, have y ou been humiliated or emotionally abused in other ways by your partner or ex-partner? No Within the last year, have y ou been kicked, hit, slapped, or otherwise physically hurt by your partner or ex-partner? No 08/03/2023 Within the last year, have y ou been raped or forced to have any kind of sexual activity by your partner or ex-partner? No 08/03/2023 Social Connection and Isolat ion Panel [NHANES] Answer Date Recorded In a typical week, how many times do you talk on the phone with family, friends, or neighbors? More than three times a week 12/04/2023 How often do you get togethe r with friends or relatives? Twice a week 12/04/2023 How often do you attend chur or orthodox services? More than 4 times per year 12/04/2023 Do you belong to any clubs o r organizations such as denominational groups, unions, fraternal or athletic groups, or school groups? Yes 12/04/2023 How often do you attend meet ings of the clubs or organizations you belong to? More than 4 times per year 12/04/2023 Are you , , di vorced, , never , or living with a partner? 12/04/2023 AUDIT-C Answer Date Recorded Q1: How often do you have a drink containing alcohol? Never 12/04/2023 Q2: How many drinks containi ng alcohol do you have on a typical day when you are drinking? Patient does not drink Q3: How often do you have si x or more drinks on one occasion? Never 12/04/2023 Overall Financial Resource Strain (CARDIA) Answe r Date Recorded How hard is it for you to pa y for the very basics like food, housing, medical care, and heating? Not very hard 12/04/2023 PHQ-2 Answer Date Recorded Patient Health Questionnaire-2 Score 0 12/26/2023 [facility] Occupat ional Health - Occupational Stress Questionnaire Answer Date Recorded Do you feel stress - tense, restless, nervous, or anxious, or unable to sleep at night because your mind is troubled all the time - these days? Only a little 12/04/2023 Exercise Vital Sign Answer Date Recorde d On average, how many days pe r week do you engage in moderate to strenuous exercise (like a brisk walk)? 5 days 12/04/2023 On average, how many minutes do you engage in exercise at this level? 30 min 12/04/2023 Hunger Vital Sign Answer Date Recorded Within the past 12 months, y ou worried that your food would run out before you got the money to buy more. Never true 12/04/19 24 Within the past 12 months, t he food you bought just didn't last and you didn't have money to get more. Never true 12/04/2023 PRAPARE - Transportation Answer Date Re corded In the past 12 months, has l ack of transportation kept you from medical appointments or from getting medications? No 01/2024 In the past 12 months, has l ack of transportation kept you from meetings, work, or from getting things needed for daily living? No 12/04/2023 Housing Stability Vital Sign Answer Jaylan e Recorded In the last 12 months, was t here a time when you were not able to pay the mortgage or rent on time? No 12/04/2023 In the last 12 months, how many places have you lived? 1 12/04/2023 In the last 12 months, was t here a time when you did not have a steady place to sleep or slept in a fpc (including now)? No 12/04/2023 Sex and Gender Information Value Date Recorded Sex Assigned at Male 08/04/2023 11:52 AM EDT Legal Sex Male 6:42 PM EDT Gender Identity Male 12/13/2022 6:42 PM EDT Sexual Orientation Straight 08/04/2023 11 :52 AM EDT documented as of this encounter Plan of Treatment Upcoming Encounters Date Type Department Care Team (Late st Contact Info) Description 04/09/2025 8:00 AM EDT Office Visit [facility] [address] [place] [address] Herman Pak MD [address] [facility] [address] [place] [address] documented as of this encounter Procedures Procedure Name Priority Date/Time Associated Diagnosis Comments CA ECHO DOPPLER COMPLETE 03/06/2024 12:59 PM EDT documented in this encounter Results * CA ECHO DOPPLER COMPLETE (03/06/2024 12:59 PM EDT) Anatomical Region Laterality Modality Other 03/06/2024 12:5 9 PM EDT Narrative 03/06/2024 1:01 [place] [address] Cardiology Report Signed Patient: Go Kirkland MR#: [id number] : 1950 Acct:[id number] Age/Sex: 73 / M ADM Date: 03/04/24 Loc: [place] Attending Dr: HERMAN PAK Ordering Physician: HERMAN PAK Date of Service: 03/04/24 Procedure(s): CA echo doppler complete Accession Number(s): [id number] cc: HERMAN PAK Patient Name: GO KIRKLAND MR#: [id number] : 1950 Exam Date: 03/04/2024 Ordering Doctor: DR HERMAN PAK . ECHOCARDIOGRAM REPORT PROCEDURE: CA ECHO DOPPLER COMPLETE INDICATIONS: SHORTNESS OF BREATH, CHEST PRESSURE COMPARISON: None. DESCRIPTION: COMPLETE ECHOCARDIOGRAM Real-time transthoracic echocardiography with 2D, M-mode, spectral and color flow Doppler performed. QUALITY: Technical quality was good. LEFT VENTRICLE: Normal chamber size. Borderline left ventricular hypertrophy. Global left ventricular systolic function is normal. LV EF: Estimated left ventricular ejection fraction is 55% DIASTOLIC: Diastolic function is indeterminate. ATRIAL SEPTUM: LEFT ATRIUM: Mild dilatation. RIGHT ATRIUM: Mild dilatation. RIGHT VENTRICLE: Normal chamber size. Normal right ventricular systolic function. TRICUSPID VALVE: Normal mobility and thickness. Normal with trivial regurgitation. No evidence of pulmonary hypertension. RVSP 17 mmHg MITRAL VALVE: Normal mobility and thickness. No evidence of mitral valve stenosis. There is no mitral annular calcification. Trivial mitral regurgitation. AORTIC VALVE: Normal trileaflet appearance. Mildly calcified aortic valve. Normal leaflet mobility. No evidence of aortic valve stenosis. No aortic regurgitation. AORTIC ROOT: Normal diameter and appearance. PULMONIC VALVE: Normal thickness and mobility. No stenosis. No regurgitation. PERICARDIUM: No evidence of pericardial effusion. IVC: Collapses with inspirations. Normal size. PLEURA: CONCLUSION: 1. Normal ventricular systolic function. LVEF is 55%. 2. No significant valvular dysfunction. 3. Normal right-sided pressures. 4. No pericardial effusion. Adult Echocardiography Procedure Report Left Ventricle LVEDD (3.7 - 5.6 cm): 5.24 cm LVESD (2.2 - 4.0 cm): 3.48 cm LVIVS thickness (0.6 - 1.2 cm): 1.01 cm LVPW thickness (0.5 - 1.0 cm): 1.12 cm e': 0.09 m/s E - e': 8.64 LVOT Max Gradient: 3.00 mm[Hg] LVOT Area (cm2): 0.87 m/s Peak Velocity (LVOT): 0.87 m/s Mean Velocity (LVOT): 0.56 m/s LVOT Diameter 2.31 cm Left Ventricular Ejection Fraction: 55 % Left Atrium LA Volume Index (2D A2C): 43.70 ml/m2 Left Atrium Systolic Dimension: 4.03 cm Mitral Valve MV E to A Ratio: 0.81 Mitral Valve A-Wave Peak Velocity: 0.98 m/s Mitral Valve E-Wave Peak Velocity: 0.79 m/s Right Ventricle RV Internal Diastolic Dimension: 3.62 cm Aorta AO Root Diam: 3.79 cm Ascending Ao Diam: 3.61 cm Aortic Valve AoV Area (Peak Burt): 1.91 cm2, 1.91 cm2 AoV Area (VTI): 1.91 cm2, 1.91 cm2 Peak Velocity(Antegrade Flow): 1.90 m/s Peak Gradient(Antegrade Flow): 14.49 mm[Hg] Mean Velocity(Antegrade Flow): 1.22 m/s Mean Gradient(Antegrade Flow): 6.78 mm[Hg] Velocity Time Integral: 37.36 cm Tricuspid Valve Peak Velocity (Regurgitant Flow): 1.28 m/s, 1.88 m/s Pulmonic Valve Mean Gradient: 2.22 mm[Hg], 2.61 mm[Hg], 3.41 mm[Hg], 3.14 mm[Hg] Mean Velocity: 0.67 m/s, 0.74 m/s, 0.88 m/s, 0.82 m/s Peak Velocity: 1.14 m/s Peak Gradient: 4.49 mm[Hg], 4.73 mm[Hg], 5.31 mm[Hg], 6.49 mm[Hg] Right Atrium Right Atrium Systolic Pressure: 66.75 ml, 66.75 ml Dictated by: Eran Galindo M.D. on 03/06/2024 at 12:56 Approved by: Eran Galindo M.D. on 03/06/2024 at 12:59 Dictated By: ERAN GALINDO Signed By: 03/06/24 1301 DD/ 1259 TD/TT: Metal Finish Inspector: Procedure Note Radiology, Radiologist, MD - 03/06/2024 [place] [address] Cardiology Report Signed Patient: Go Kirkland MMR#: [id number] : 1950Acct:[id number] Age/Sex: 73 / MADM Date: 03/04/24 Loc: [place] Attending Dr: HERMAN PAK Ordering Physician: HERMAN PAK Date of Service: 03/04/24 Procedure(s): CA echo doppler complete Accession Number(s): [id number] cc: HERMAN PAK Patient Name: GO KIRKLAND MR#: [id number] : 1950 Exam Date: 03/04/2024 Ordering Doctor: DR HERMAN PAK . ECHOCARDIOGRAM REPORT PROCEDURE: CA ECHO DOPPLER COMPLETE INDICATIONS: SHORTNESS OF BREATH, CHEST PRESSURE COMPARISON: None. DESCRIPTION: COMPLETE ECHOCARDIOGRAM Real-time transthoracic echocardiography with 2D, M-mode, spectral and color flow Dopplerperformed. QUALITY: Technical quality was good. LEFT VENTRICLE: Normal chamber size. Borderline left ventricular hypertrophy. Global left ventricular systolic function is normal. LV EF: Estimated left ventricular ejection fraction is 55% DIASTOLIC: Diastolic function is indeterminate. ATRIAL SEPTUM: LEFT ATRIUM: Mild dilatation. RIGHT ATRIUM: Mild dilatation. RIGHT VENTRICLE: Normal chamber size. Normal right ventricularsystolic function. TRICUSPID VALVE: Normal mobility and thickness. Normal with trivial regurgitation. No evidence of pulmonary hypertension. RVSP 17 mmHg MITRAL VALVE: Normal mobility and thickness. No evidence of mitralvalve stenosis. There is no mitral annular calcification. Trivial mitral regurgitation. AORTIC VALVE: Normal trileaflet appearance. Mildly calcified aorticvalve. Normal leaflet mobility. No evidence of aortic valve stenosis. No aortic regurgitation. AORTIC ROOT: Normal diameter and appearance. PULMONIC VALVE: Normal thickness and mobility. No stenosis. No regurgitation. PERICARDIUM: No evidence of pericardial effusion. IVC: Collapses with inspirations. Normal size. PLEURA: CONCLUSION: 1. Normal ventricular systolic function. LVEF is 55%. 2. No significant valvular dysfunction. 3. Normal right-sided pressures. 4. No pericardial effusion. Adult Echocardiography Procedure Report Left Ventricle LVEDD (3.7 - 5.6 cm): 5.24 cm LVESD (2.2 - 4.0 cm): 3.48 cm LVIVS thickness (0.6 - 1.2 cm): 1.01 cm LVPW thickness (0.5 - 1.0 cm): 1.12 cm e': 0.09 m/s E - e': 8.64 LVOT Max Gradient: 3.00 mm[Hg] LVOT Area (cm2): 0.87 m/s Peak Velocity (LVOT): 0.87 m/s Mean Velocity (LVOT): 0.56 m/s LVOT Diameter 2.31 cm Left Ventricular Ejection Fraction: 55 % Left Atrium LA Volume Index (2D A2C): 43.70 ml/m2 Left Atrium Systolic Dimension: 4.03 cm Mitral Valve MV E to A Ratio: 0.81 Mitral Valve A-Wave Peak Velocity: 0.98 m/s Mitral Valve E-Wave Peak Velocity: 0.79 m/s Right Ventricle RV Internal Diastolic Dimension: 3.62 cm Aorta AO Root Diam: 3.79 cm Ascending Ao Diam: 3.61 cm Aortic Valve AoV Area (Peak Burt): 1.91 cm2, 1.91 cm2 AoV Area (VTI): 1.91 cm2, 1.91 cm2 Peak Velocity(Antegrade Flow): 1.90 m/s Peak Gradient(Antegrade Flow): 14.49 mm[Hg] Mean Velocity(Antegrade Flow): 1.22 m/s Mean Gradient(Antegrade Flow): 6.78 mm[Hg] Velocity Time Integral: 37.36 cm Tricuspid Valve Peak Velocity (Regurgitant Flow): 1.28 m/s, 1.88 m/s Pulmonic Valve Mean Gradient: 2.22 mm[Hg], 2.61 mm[Hg], 3.41 mm[Hg], 3.14 mm[Hg] Mean Velocity: 0.67 m/s, 0.74 m/s, 0.88 m/s, 0.82 m/s Peak Velocity: 1.14 m/s Peak Gradient: 4.49 mm[Hg], 4.73 mm[Hg], 5.31 mm[Hg], 6.49 mm[Hg] Right Atrium Right Atrium Systolic Pressure: 66.75 ml, 66.75 ml Dictated by: Eran Galindo M.D. on 03/06/2024 at 12:56 Approved by: Eran Galindo M.D. on 03/06/2024 at 12:59 Dictated By: ERAN GALINDO Signed By:03/06/24 1301 DD/ 1259 TD/TT: Metal Finish Inspector: Herman Pak MD [facility] Final Resu lt documented in this encounter Visit Diagnoses Not on filedocumented in this encounter Additional Health Concerns Assessment Noted Time PHQ-9 Depression Total Score: 1 12/26/19 24 9:00 AM EDT A fall risk assessment has been complete d for the patient 08/03/2023 2:25 PM EDT documented as of this encounter Care Teams Larry Car Operator Relationship Specialty Start Date End Date Herman Pak MD [address] [facility] [address] [place] [address] PCP - Cheo TAYLOR 10/01/21 Herman Pak MD [address] [facility] [address] [place] [address] PCP - General Family Medicine 11/29/23 Satish Ruvalcaba MD [address] [place] [address] Referring Physician Ophthalmology 12/26/23 Jojo Jc LPN [address] [place] [address] 01/01/25 documented as of this encounter
--- OUTSIDE RECORDS SUMMARY | 2025-04-08 15:08 | XMS_ITS ---
Author Organization [facility] Address [address] [place] [address] Care Team Providers Care Telesales Advisor Name Role Phone Herman West MD Unavailable [phone] Herman West MD Primary Care Provider [phone] Satish Ruvalcaba MD Unavailable [phone] Jojo Jc LPN Unavailable Chronic Care Management (CCM) Status:Enrolled (Active) Start date:02/15/2023 Enrollment date:02/15/2023 Case Team Name Relationship Phone Jojo Jc LPN(Responsible Staff) [phone] Continued Care and Services Coordination
--- OUTSIDE RECORDS SUMMARY | 2025-04-08 15:08 | XMS_ITS | Clinical Summary ---
Author Organization [employer] tem Address [id number] [address] [place] [address] Care Team Providers Care Health Occupations Instructor Name Role Phone Herman West MD Primary Care Provider [phone] Allergies No known active allergies Medications metFORMIN (GLUCOPHAGE) 500 mg tablet Take 1 tablet by mouth 2 (two) times a day. Active allopurinol (ZYLOPRIM) 100 mg tablet Take 100 mg by mouth daily. Active losartan (COZAAR) 25 mg tablet Take 25 mg by mouth daily. Active acarbose (PRECOSE) 100 MG tablet Take 100 mg by mouth 3 (three) times a day. 07/30/2019 Active Active Problems No known active problems Encounters Date Type Department Care Team Description 03/24/2025 Orders Only [facility] [place] [phone] Transcribe, Orders Support User Pain (Primary Dx) 03/23/2025 8:55 AM EDT Ancillary Procedure [facility] [address] [place] [id number] Pain 03/22/2025 3:46 PM EDT - 03/25/2025 4:07 PM EDT Emergency [facility] [address] [place] [phone] Discharge Disposition: Telemedicine Discharge 03/22/2025 12:05 PM EDT Ancillary Procedure [facility] [address] [place] [phone] Pain 03/22/2025 12:00 PM EDT Ancillary Procedure [facility] [address] [place] [address] Pain 03/22/2025 10:15 AM EDT Ancillary Procedure [facility] [address] [place] [phone] Pain 01/12/2025 Refill [facility] Internal Medicine - Family Medicine [address] [place] [phone] Francesca Knowles CMA from Last 3 Months Social History Tobacco Use Types Packs/Day Years [...] on file Sexual Orientation Not on file Last Filed Vital Signs Vital Sign Reading Time Taken Comments Blood Pressure 151/87 08/20/2019 11:15 AM EST Pulse 70 08/20/2019 11:15 AM EST Temperature 36 C (96.8 F) 08/20/2019 9:35 AM EST Respiratory Rate 16 08/20/2019 10:16 AM EST Oxygen Saturation 96% 08/20/2019 11:15 AM EST Inhaled Oxygen Concentration - - Weight 119.7 kg (264 lb) 08/20/2019 6:43 AM EST Height 177.8 cm (5' 10 ) 08/20/2019 6:43 AM EST Body Mass Index 37.88 08/20/2019 6:43 AM EST Plan of Treatment Health Maintenance Due Date Last Done Comments Depression Screening 1962 Tobacco Screening 1962 Adult BMI Screening 1968 DTaP,Tdap and Td Vaccines (1 - Tdap) 1969 Zoster (Shingles) Vaccine (1 of 2) 2000 Fall Risk Screening 2015 Influenza Vaccine 06/01/2025 Medical Devices Implanted Type Area Cost Manager Device Identifier Shelf Expiration Date Model / Serial / Lot Mesh Srg Clgn Rcnst Scfld Lg - Sna - [id number] Implanted:Qty: 1 on 08/20/2019 by Ayaan Burrell DO at [facility] Mesh Right: Shoulder [employer] 05/08/2022 [id number] / [id number] / [id number] Procedures Procedure Name Priority Date/Time Associated Diagnosis Comments MR BRAIN WO CONT Routine 03/23/2025 8:[address] CTA HEAD Routine 03/22/2025 12:[address] CTA CAROTID Routine 03/22/2025 12:[address] BRAIN WO CONT STROKE ALERT STAT Reading 03/22/2025 10:15 AM EDT Pain from Last 3 Months Results * MR brain without contrast (03/23/2025 8:55 AM EDT) us Scanning Provider External IMG MRI ORDERABLES Fi nal Result * CT angiogram head (03/22/2025 12:05 PM EDT) us Scanning Provider External IMG CT ORDERABLES Fin al Result * CT angiogram carotid (03/22/2025 12:00 PM EDT) us Scanning Provider External IMG CT ORDERABLES Fin al Result * CT brain without contrast stroke alert (03/22/2025 10:15 AM EDT) us Scanning Provider External IMG CT ORDERABLES Fin al Result from Last 3 Months Insurance [employer] Care Teams Health Occupations Instructor Relationship Specialty Start Date End Date Herman West MD PCP - General Family Medicine 07/25/19
--- OUTSIDE RECORDS SUMMARY | 2025-04-08 15:08 | XMS_ITS | Encounter Summary ---
Author Organization [facility] Address [address] [place] [address] Care Team Providers Care Addressing Machine Operator Name Role Phone Herman West MD Unavailable [phone] Herman West MD Primary Care Provider [phone] Satish Ruvalcaba MD Unavailable [phone] Jojo Jc LPN Unavailable Encounter Details Date Type Department Care Team (Late st Contact Info) Description 01/01/2024 Abstract [facility] [address] [facility] [place] [address] Herman West MD [address] [facility] [address] [place] [address] Social History Tobacco Use Types Packs/Day Years [...] 12/04/2023 How often do you attend chur ch or advent services? More than 4 times per year 12/04/2023 Do you belong to any clubs o r organizations such as amish groups, unions, fraternal or athletic groups, or [...] Recorded Patient Health Questionnaire-2 Score 0 12/26/2023 [facility] Occupat ional Health - Occupational Stress [...] place to sleep or slept in a alf (including now)? No 12/04/2023 Sex and Gender [...] 04/09/2025 8:00 AM EDT Office Visit [facility] [address] [place] [address] Herman West MD [address] [place] [address] documented as of this encounter Visit Diagnoses Not on filedocumented in this encounter Additional Health Concerns Assessment Noted Time PHQ-9 Depression Total Score: 1 12/26/19 24 9:00 AM EDT A fall risk assessment has been complete d for the patient 08/03/2023 2:25 PM EDT documented as of this encounter Care Teams Addressing Machine Operator Relationship Specialty Start Date End Date Herman West MD [address] [place] [address] PCP - Cheo TAYLOR 10/01/21 Herman West MD [address] [place] [address] PCP - General Family Medicine 11/29/23 Satish Ruvalcaba MD [address] [place] [address] Referring Physician Ophthalmology 12/26/23 Jojo Jc LPN [address] [place] [address] 01/01/25 documented as of this encounter
--- OUTSIDE RECORDS SUMMARY | 2025-04-08 15:08 | XMS_ITS | Clinical Summary ---
Author Organization [facility] Address [address] [place] [address] Care Team Providers Care Spring Coiler Hand Name Role Phone Unavailable Primary Care Provider Unavailabl e Allergies No known active allergies Medications LISINOPRIL 20 MG TAB Take one(1) tablet daily. 0 0 9 Active METFORMIN 1,000 MG TAB Take one(1) tablet two(2) times daily. 0 0 9 Active naproxen sodium(NAPRELAN 500 MG TAB) as necessary 0 2 9 Active Social History Tobacco Use Types Packs/Day Years Used Date Smoking Tobacco: Never Alcohol Use Standard Drinks/Week Comments Not Asked 0 (1 standard drink = 0.6 oz pur e alcohol) Sex and Gender Information Value Date Recorded Sex Assigned at Not on file Legal Sex Male 8:20 AM EST Gender Identity Not on file Sexual Orientation Not on file Last Filed Vital Signs Vital Sign Reading Time Taken Comments Blood Pressure 162/94 04/16/2009 8:17 AM EDT Pulse 103 04/16/2009 8:17 AM EDT Temperature - - Respiratory Rate 20 04/16/2009 8:17 AM EDT Oxygen Saturation - - Inhaled Oxygen Concentration - - Weight 119.7 kg (264 lb) 04/16/2009 8:17 AM EDT Height 179.1 cm (5' 10.5 ) 04/16/2009 8:17 AM ED T Body Mass Index 37.34 04/16/2009 8:17 AM EDT Plan of Treatment Health Maintenance Due Date Last Done Comments Anxiety Screening 1968 Depression Screening 1968 Hepatitis C Screening 1968 DTaP,Tdap,Td Vaccine (1 - Tdap) [address] Colonography 1995 Cologuard (FIT-DNA) 1995 Colonoscopy 1995 Colorectal Cancer Screening 1995 Diabetes Screening 1995 Fecal Occult Blood 1995 Sigmoidoscopy 1995 Pneumococcal Vaccine: 50+ (1 of 1 - PCV) 2000 Shingrix Vaccine (1 of 2) 2000 Covid-19 Vaccine (1 - 2023- season) 2024 Advance Directive Discussion 10/01/2024 Influenza Vaccine (#1) 2025 RSV Vaccine (1 - 1-dose 75+ series) 2025 Insurance [facility] CHOICE PLUS
--- OUTSIDE RECORDS SUMMARY | 2025-04-08 15:08 | XMS_ITS | Encounter Summary ---
Author Organization [facility] Address [address] [place] [address] Care Team Providers Care Resource Efficiency Manager Name Role Phone Herman West MD Unavailable [phone] Herman West MD Primary Care Provider [phone] Satish Ruvalcaba MD Unavailable [phone] Jojo Jc LPN Unavailable Encounter Details Date Type Department Care Team (Late st Contact Info) Description 10/20/2024 Orders Only [facility] [address] [place] [address] [place] [address] Herman West MD [address] [place] [address] Social History Tobacco Use Types Packs/Day Years Used Date Smoking Tobacco: Former Cigarettes 1 25 0 10/01/1965 - 10/01/1990 Smokeless Tobacco: Never Comments:Quit 1990 Alcohol Use Standard Drinks/Week Comments Not Currently 0 (1 standard drink = 0.6 oz pure alcohol) Caffeine intake ; 1-2 cups perday coffee B1300 Health Literacy Answer Date Recor ded How often do you need to hav e someone help you when you read instructions, pamphlets, or other written material from your doctor or pharmacy? Rarely 08/01/2024 Humiliation, Afraid, Rape, and Kick questionnair e Answer Date Recorded Within the last year, have y ou been afraid of your partner or ex-partner? No 08/01/2024 Within the last year, have y ou been humiliated or emotionally abused in other ways by your partner or ex-partner? No Within the last year, have y ou been kicked, hit, slapped, or otherwise physically hurt by your partner or ex-partner? No 08/01/2024 Within the last year, have y ou been raped or forced to have any kind of sexual activity by your partner or ex-partner? No 08/01/2024 Social Connection and Isolat ion Panel [NHANES] Answer Date Recorded In a typical week, how many times do you talk on the phone with family, friends, or neighbors? More than three times a week 08/01/2024 How often do you get togethe r with friends or relatives? Twice a week 08/01/2024 How often do you attend chur or nondenominational services? More than 4 times per year 08/01/2024 Do you belong to any clubs o r organizations such as religion groups, unions, fraternal or athletic groups, or school groups? Yes 08/01/2024 How often do you attend meet ings of the clubs or organizations you belong to? More than 4 times per year 08/01/2024 Are you , , di vorced, , never , or living with a partner? 08/01/2024 AUDIT-C Answer Date Recorded Q1: How often do you have a drink containing alcohol? Never 08/01/2024 Q2: How many drinks containi ng alcohol do you have on a typical day when you are drinking? Patient does not drink Q3: How often do you have si x or more drinks on one occasion? Never 08/01/2024 Overall Financial Resource Strain (CARDIA) Answe r Date Recorded How hard is it for you to pa y for the very basics like food, housing, medical care, and heating? Not very hard 08/01/2024 PHQ-2 Answer Date Recorded Patient Health Questionnaire-2 Score 0 08/01/2024 [facility] of Occupat ional Health - Occupational Stress Questionnaire Answer Date Recorded Do you feel stress - tense, restless, nervous, or anxious, or unable to sleep at night because your mind is troubled all the time - these days? Only a little 08/01/2024 Exercise Vital Sign Answer Date Recorde d On average, how many days pe r week do you engage in moderate to strenuous exercise (like a brisk walk)? 5 days 08/01/2024 On average, how many minutes do you engage in exercise at this level? 60 min 08/01/2024 Hunger Vital Sign Answer Date Recorded Within the past 12 months, y ou worried that your food would run out before you got the money to buy more. Never true 08/01/20 24 Within the past 12 months, t he food you bought just didn't last and you didn't have money to get more. Never true 08/01/2024 PRAPARE - Transportation Answer Date Re corded In the past 12 months, has l ack of transportation kept you from medical appointments or from getting medications? No 10/2023 In the past 12 months, has l ack of transportation kept you from meetings, work, or from getting things needed for daily living? No 08/01/2024 Housing Stability Vital Sign Answer Jaylan e [...] place to sleep or slept in a usp (including now)? No 12/04/2023 Housing Stability Vital Sign Answer Jaylan e Recorded In the last 12 months, was t here a time when you were not able to pay the mortgage or rent on time? No 08/01/2024 In the past 12 months, how m any times have you moved where you were living? 0 08/01/2024 At any time in the past 12 m [facility], were you homeless or living in a usp (including now)? No 08/01/2024 Sex and Gender Information Value Date Recorded [...] 8:00 AM EDT Office Visit [facility] [address] [facility] [address] [place] [address] Herman West MD [address] [place] [address] (Fax) documented as of this encounter Procedures Procedure Name Priority Date/Time Associated Diagnosis Comments DIABETIC RETINOPATHY SCREENING - OU - BOTH EYES Routine 10/17/2024 8:06 AM EST documented in this encounter Results * Diabetic Retinopathy Screening - OU - Both Eyes (10/17/2024 8:06 AM EST) Anatomical Region Laterality Modality Head Other Herman West MD OPHTH PHOTOGRAPHY Final Resu lt documented in this encounter Visit Diagnoses Not on filedocumented in this encounter Additional Health Concerns Assessment Noted Time PHQ-9 Depression Total Score: 1 12/26/19 24 9:00 AM EDT A fall risk assessment has been complete d for the patient 08/01/2024 11:39 AM EDT documented as of this encounter Care Teams Resource Efficiency Manager Relationship Specialty Start Date End Date Herman West MD [address] [facility] 100 [place] [address] (Fax) PCP - Cheo TAYLOR 10/01/21 Herman West MD [address] [facility] 100 [place] [address] (Fax) PCP - General Family Medicine 11/29/23 Satish Ruvalcaba MD [address] [place], [place] [id number] Referring Physician Ophthalmology 12/26/23 Jojo Jc LPN [address] [facility] [address] [place] [address] 01/01/25 documented as of this encounter
--- OUTSIDE RECORDS SUMMARY | 2025-04-08 15:08 | XMS_ITS | Encounter Summary ---
Author Organization [facility] Address [address] [place] [address] Care Team Providers Care Supervisor Transcribing Operators Name Role Phone Herman West MD Unavailable [phone] Herman West MD Primary Care Provider [phone] Satish Ruvalcaba MD Unavailable [phone] Jojo Jc LPN Unavailable Reason for Visit * Reason Onset Date Comments Care Coordination 03/24/2025 Encounter Details Date Type Department Care Team (Late st Contact Info) Description 03/24/2025 Telephone [facility] [address] [place] [address] [place] [address] Herman West MD [address] [place] [address] (Fax) Care Coordination Social History Tobacco Use Types Packs/Day Years [...] written material from your doctor or pharmacy? Never 02/04/2025 Humiliation, Afraid, Rape, and Kick questionnair e Answer Date Recorded Within the last year, have y ou been afraid of your partner or ex-partner? No 02/04/2025 Within the last year, have y ou been humiliated or emotionally abused in other ways by your partner or ex-partner? No Within the last year, have y ou been kicked, hit, slapped, or otherwise physically hurt by your partner or ex-partner? No 02/04/2025 Within the last year, have y ou been raped or forced to have any kind of sexual activity by your partner or ex-partner? No 02/04/2025 Social Connection and Isolat ion Panel [NHANES] Answer Date Recorded In a typical week, how many times do you talk on the phone with family, friends, or neighbors? More than three times a week 02/04/2025 How often do you get togethe r with friends or relatives? Three times a week 02/04/2025 How often do you attend chur ch or latter-day services? More than 4 times per year 02/04/2025 Do you belong to any clubs o r organizations such as voodoo groups, unions, fraternal or athletic groups, or school groups? Yes 02/04/2025 How often do you attend meet ings of the clubs or organizations you belong to? More than 4 times per year 02/04/2025 Are you , , di vorced, , never , or living with a partner? 02/04/2025 AUDIT-C Answer Date Recorded Q1: How often do you have a drink containing alcohol? Never 02/04/2025 Q2: How many drinks containi ng alcohol do you have on a typical day when you are drinking? Patient does not drink Q3: How often do you have si x or more drinks on one occasion? Daily or almost daily 02/04/2025 Overall Financial Resource Strain (CARDIA) Answe r Date Recorded How hard is it for you to pa y for the very basics like food, housing, medical care, and heating? Not very hard 02/04/2025 PHQ-2 Answer Date Recorded Patient Health Questionnaire-2 Score 0 02/24/2025 [facility] of Occupat ional Health - Occupational Stress Questionnaire Answer Date Recorded Do you feel stress - tense, restless, nervous, or anxious, or unable to sleep at night because your mind is troubled all the time - these days? Not at all 02/04/2025 Exercise Vital Sign Answer Date Recorde d On average, how many days pe r week do you engage in moderate to strenuous exercise (like a brisk walk)? 3 days 02/04/2025 On average, how many minutes do you engage in exercise at this level? 30 min 02/04/2025 Hunger Vital Sign Answer Date Recorded Within the past 12 months, y ou worried that your food would run out before you got the money to buy more. Never true 02/05/20 25 Within the past 12 months, t he food you bought just didn't last and you didn't have money to get more. Never true 02/04/2025 PRAPARE - Transportation Answer Date Re corded In the past 12 months, has l ack of transportation kept you from medical appointments or from getting medications? No 03/2025 In the past 12 months, has l ack of transportation kept you from meetings, work, or from getting things needed for daily living? No 02/04/2025 Housing Stability Vital Sign Answer Jaylan e [...] place to sleep or slept in a group home (including now)? No 12/04/2023 Housing Stability Vital Sign Answer Jaylan e Recorded In the last 12 months, was t here a time when you were not able to pay the mortgage or rent on time? No 02/04/2025 In the past 12 months, how m any times have you moved where you were living? 0 02/04/2025 At any time in the past 12 m [facility], were you homeless or living in a group home (including now)? No 02/04/2025 Sex and Gender Information Value Date Recorded Sex Assigned at Male 08/04/2023 11:52 AM EDT Legal Sex Male 6:42 PM EDT Gender Identity Male 12/13/2022 6:42 PM EDT Sexual Orientation Straight 08/04/2023 11 :52 AM EDT documented as of this encounter Miscellaneous Notes * Telephone Encounter - Angélica Ruizino CLAUDIA - 03/24/2025 11:09 AM EDT Between conversations with Dotty and Cristin, it was determined pt did not have a stroke but has a detached retina. He was supposed to have surgery in [place] today but they had to reschedule him due to an emergency. Dotty had stated to me he was questioning the medication they rx him. After speakingto Cristin these were the medication changes that were made that needed sorted out: They gave him plavix to start and then stop in three weeks. Should he take this? He is on aspirin 81mg and atorvastatin 40mg daily They increased his Losartan to 100mg. He is trying to follow up and find from what he truly should be taking. * Telephone Encounter - Glenis Jerome - 03/24/2025 8:05 AM EDT Gregorio left a message requesting a call back. He had some questions about medication since being discharged. [phone] documented in this encounter Plan of Treatment Upcoming Encounters Date Type Department Care Team (Late st Contact Info) Description 04/09/2025 8:00 AM EDT Office Visit [facility] [address] [place] [address] Herman West MD [address] [facility] 100 [place] [address] documented as of this encounter Visit Diagnoses Not on filedocumented in this encounter Additional Health Concerns Assessment Noted Time PHQ-9 Depression Total Score: 1 12/26/19 24 9:00 AM EDT A fall risk assessment has been complete d for the patient 08/01/2024 11:39 AM EDT documented as of this encounter Care Teams Supervisor Transcribing Operators Relationship Specialty Start Date End Date Herman West MD [address] [facility] 100 [place] [address] PCP - Cheo TAYLOR 10/01/21 Herman West MD [address] [place] [address] PCP - General Family Medicine 11/29/23 Satish Ruvalcaba MD [address] [place] [address] Referring Physician Ophthalmology 12/26/23 Jojo Jc LPN [address] [place] [address] [place] [address] 01/01/25 documented as of this encounter
--- OUTSIDE RECORDS SUMMARY | 2025-04-08 15:08 | XMS_ITS | Encounter Summary ---
Author Organization [facility] Address [address] [place] [address] Care Team Providers Care Senior Gl Accountant Name Role Phone Herman West MD Unavailable [phone] Herman West MD Primary Care Provider [phone] Satish Ruvalcaba MD Unavailable [phone] Jojo Jc LPN Unavailable Reason for Visit * Reason Onset Date Comments Med Refill 07/14/2024 Encounter Details Date Type Department Care Team (Late st Contact Info) Description 07/14/2024 Refill [facility] [address] [place] [address] Herman West MD [address] [place] [address] (Fax) Type 2 diabetes mellitus with hyperglycemia, without long-term current use of insulin (HCC) Social History Tobacco Use Types Packs/Day Years [...] How often do you attend chur or christianity services? More than 4 times per year 12/04/2023 Do you belong to any clubs o r organizations such as religious groups, unions, fraternal or athletic groups, or [...] Recorded Patient Health Questionnaire-2 Score 0 12/26/2023 [facility] of Occupat ional Health - Occupational Stress [...] place to sleep or slept in a residential (including now)? No 12/04/2023 Sex and Gender [...] Visit [facility] [address] [facility] [address] [place] [address] Herman West MD [address] [facility] [address] [place] [address] (Fax) documented as of this encounter Visit Diagnoses Diagnosis Type 2 diabetes mellitus with hyperglycemia, without long-term current use of insulin (HCC) documented in this encounter Additional Health Concerns Assessment Noted Time PHQ-9 Depression Total Score: 1 12/26/19 24 9:00 AM EDT A fall risk assessment has been complete d for the patient 08/03/2023 2:25 PM EDT documented as of this encounter Care Teams Senior Gl Accountant Relationship Specialty Start Date End Date Herman West MD [address] [place] [address] PCP - Cheo TAYLOR 10/01/21 Herman West MD [address] [place] [address] PCP - General Family Medicine 11/29/23 Satish Ruvalcaba MD [address] [place] [address] Referring Physician Ophthalmology 12/26/23 Jojo Jc LPN [address] [place] [address] [place] [address] 01/01/25 documented as of this encounter
--- OUTSIDE RECORDS SUMMARY | 2025-04-08 15:08 | XMS_ITS | Encounter Summary ---
Author Organization [facility] Address [address] [place] [address] Care Team Providers Care Senior Lead Project Manager Name Role Phone Herman West MD Unavailable [phone] Herman West MD Primary Care Provider [phone] Unallocated, [facility] Provider Primary Care Provi alysa Herman West MD Primary Care Provider [phone] Satish Ruvalcaba MD Unavailable [phone] Jojo Jc LPN Unavailable Encounter Details Date Type Department Care Team (Late st Contact Info) Description 10/10/2023 Orders Only [facility] [address] [facility] [place] [address] Herman West MD [address] [facility] [address] [place] [address] Social History Tobacco Use Types Packs/Day Years Used Date Smoking Tobacco: Former Cigarettes 1 25 0 10/01/1965 - 10/01/1990 Smokeless Tobacco: Never Alcohol Use Standard Drinks/Week Comments Not Currently 0 (1 standard drink = 0.6 oz pur e alcohol) Humiliation, Afraid, Rape, and Kick questionnair e [...] neighbors? More than three times a week 08/03/2023 How often do you get togethe r with friends or relatives? Twice a week 08/03/2023 How often do you attend chur or evangelical services? More than 4 times per year 08/03/2023 Do you belong to any clubs o r organizations such as anabaptism groups, unions, fraternal or athletic groups, or school groups? Yes 08/03/2023 How often do you attend meet ings of the clubs or organizations you belong to? More than 4 times per year 08/03/2023 Are you , , di vorced, , never , or living with a partner? 08/03/2023 AUDIT-C Answer Date Recorded Q1: How often do you have a drink containing alcohol? Never 08/03/2023 Q2: How many drinks containi ng alcohol do you have on a typical day when you are drinking? Patient does not drink Q3: How often do you have si x or more drinks on one occasion? Never 08/03/2023 Overall Financial Resource Strain (CARDIA) Answe r Date Recorded How hard is it for you to pa y for the very basics like food, housing, medical care, and heating? Not hard at all 08/03/2023 PHQ-2 Answer Date Recorded Patient Health Questionnaire-2 Score 0 08/03/2023 [facility] of Occupat ional Health - Occupational Stress Questionnaire Answer Date Recorded Do you feel stress - tense, restless, nervous, or anxious, or unable to sleep at night because your mind is troubled all the time - these days? Only a little 08/03/2023 Exercise Vital Sign Answer Date Recorde d On average, how many days pe r week do you engage in moderate to strenuous exercise (like a brisk walk)? 5 days 08/03/2023 On average, how many minutes do you engage in exercise at this level? 60 min 08/03/2023 Hunger Vital Sign Answer Date Recorded Within the past 12 months, y ou worried that your food would run out before you got the money to buy more. Never true 08/03/20 23 Within the past 12 months, t he food you bought just didn't last and you didn't have money to get more. Never true 08/03/2023 PRAPARE - Transportation Answer Date Re corded In the past 12 months, has l ack of transportation kept you from medical appointments or from getting medications? No 11/2022 In the past 12 months, has l ack of transportation kept you from meetings, work, or from getting things needed for daily living? No 08/03/2023 Housing Stability Vital Sign Answer Jaylan e Recorded In the last 12 months, was t here a time when you were not able to pay the mortgage or rent on time? No 08/03/2023 In the last 12 months, how many places have you lived? 1 08/03/2023 In the last 12 months, was t here a time when you did not have a steady place to sleep or slept in a fdc (including now)? No 08/03/2023 Sex and Gender Information Value Date Recorded [...] FM [address] [place] [address] Herman West MD [address] [facility] [address] [place] [address] (Fax) documented as of this encounter Procedures Procedure Name Priority Date/Time Associated Diagnosis Comments DIABETIC RETINOPATHY SCREENING - OU - BOTH EYES Routine 10/10/2023 9:07 AM EST documented in this encounter Results * (ABNORMAL) Diabetic Retinopathy Screening - OU - Both Eyes (10/10/2023 9:07 AM EST) Anatomical Region Laterality Modality Head Other Herman West MD OPHTH PHOTOGRAPHY Final Resu lt documented in this encounter Visit Diagnoses Not on filedocumented in this encounter Additional Health Concerns Assessment Noted Time A fall risk assessment has been complete d for the patient 08/03/2023 2:25 PM EDT documented as of this encounter Care Teams Senior Lead Project Manager Relationship Specialty Start Date End Date Herman West MD [address] [place] [address] (Fax) PCP - Cheo TAYLOR 10/01/21 Herman West MD [address] [place] [address] (Fax) PCP - General Family Medicine 02/06/23 11/14/23 Unallocated, [facility] [address] [place] [address] PCP - General Family Medicine 11/15/23 11/28/23 Herman West MD [address] [place] [address] (Fax) PCP - General Family Medicine 11/29/23 Satish Ruvalcaba MD [address] [place] [address] Referring Physician Ophthalmology 12/26/23 Jojo Jc LPN [address] [place] [address] 01/01/25 documented as of this encounter
--- OUTSIDE RECORDS SUMMARY | 2025-04-08 15:08 | XMS_ITS | Encounter Summary ---
Author Organization [facility] Address [address] [place] [address] Care Team Providers Care Dramatic Teacher Name Role Phone Herman West MD Unavailable [phone] Herman West MD Primary Care Provider [phone] Satish Ruvalcaba MD Unavailable [phone] Jojo Jc LPN Unavailable Encounter Details Date Type Department Care Team (Late st Contact Info) Description 03/25/2025 Orders Only [facility] [address] [place] [address] Herman West MD [address] [place] [address] (Fax) Retinal detachment, traction, left (Primary Dx) Social History Tobacco Use Types Packs/Day Years [...] often do you attend chur ch or rastafarian services? More than 4 times per year 02/04/2025 Do you belong to any clubs o r organizations such as oriental orthodox groups, unions, fraternal or athletic groups, or [...] Recorded Patient Health Questionnaire-2 Score 0 02/24/2025 [facility] of Occupat ional Health - [...] place to sleep or slept in a correction (including now)? No 12/04/2023 Housing Stability Vital Sign Answer Jaylan e Recorded In the last 12 months, was t here a time when you were not able to pay the mortgage or rent on time? No 02/04/2025 In the past 12 months, how m any times have you moved where you were living? 0 02/04/2025 At any time in the past 12 m [facility], were you homeless or living in a correction (including now)? No 02/04/2025 Sex and Gender Information Value Date Recorded Sex Assigned at Male 08/04/2023 11:52 AM EDT Legal Sex Male 6:42 PM EDT Gender Identity Male 12/13/2022 6:42 PM EDT Sexual Orientation Straight 08/04/2023 11 :52 AM EDT documented as of this encounter Progress Notes * Herman West MD - 03/25/2025 9:00 AM EDT Reviewed ophthalmology note. Updated chronic problem list and updated acute problem list. documented in this encounter Plan of Treatment Upcoming Encounters Date Type Department Care Team (Late st Contact Info) Description 04/09/2025 8:00 AM EDT Office Visit [facility] [address] [place] [address] Herman West MD [address] [place] [address] (Fax) documented as of this encounter Visit Diagnoses Diagnosis Retinal detachment, traction, left- Primary Traction detachment of retina documented in this encounter Additional Health Concerns Assessment Noted Time PHQ-9 Depression Total Score: 1 12/26/19 24 9:00 AM EDT A fall risk assessment has been complete d for the patient 08/01/2024 11:39 AM EDT documented as of this encounter Care Teams Dramatic Teacher Relationship Specialty Start Date End Date Herman West MD [address] [place] [address] (Fax) PCP - Cheo TAYLOR 10/01/21 Herman West MD [address] [place] [address] (Fax) PCP - General Family Medicine 11/29/23 Satish Ruvalcaba MD [address] [place], [place] [id number] Referring Physician Ophthalmology 12/26/23 Jojo Jc LPN [address] [place] [address] 01/01/25 documented as of this encounter
--- OUTSIDE RECORDS SUMMARY | 2025-04-08 15:08 | XMS_ITS | Encounter Summary ---
Author Organization [facility] Address [address] [place] [address] Care Team Providers Care Medical Apparatus Model Maker Name Role Phone Herman West MD Unavailable [phone] Herman West MD Primary Care Provider [phone] Satish Ruvalcaba MD Unavailable [phone] Jojo Jc LPN Unavailable Reason for Visit * Reason Onset Date Comments Med Refill 11/03/2024 Encounter Details Date Type Department Care Team (Late st Contact Info) Description 11/03/2024 Refill [facility] [address] [place] [address] Herman West MD [address] [place] [address] (Fax) Type 2 diabetes mellitus with both eyes affected by mild nonproliferative retinopathy without macular edema, without long-term current use of insulin ([facility]) Social History Tobacco Use Types Packs/Day Years [...] week 08/01/2024 [facility] services? More than 4 times per year 08/01/2024 Do you belong to any clubs o r organizations such as mandaeism groups, unions, fraternal or athletic groups, or [...] Recorded Patient Health Questionnaire-2 Score 0 08/01/2024 [facility] Occupat ional Health - Occupational Stress [...] place to sleep or slept in a prison (including now)? No 12/04/2023 Housing Stability Vital Sign Answer Jaylan e Recorded In the last 12 months, was t here a time when you were not able to pay the mortgage or rent on time? No 08/01/2024 In the past 12 months, how m any times have you moved where you were living? 0 08/01/2024 At any time in the past 12 m [facility], were you homeless or living in a prison (including now)? No 08/01/2024 Sex and Gender [...] FM [address] [place] [address] Herman West MD [address] [place] [address] documented as of this encounter Visit Diagnoses Diagnosis Type 2 diabetes mellitus with both eyes affected by mild nonproliferative retinopathy without macular edema, without long-term current use of insulin (HCC) documented in this encounter Additional Health Concerns Assessment Noted Time PHQ-9 Depression Total Score: 1 12/26/19 24 9:00 AM EDT A fall risk assessment has been complete d for the patient 08/01/2024 11:39 AM EDT documented as of this encounter Care Teams Medical Apparatus Model Maker Relationship Specialty Start Date End Date Herman West MD [address] [facility] 100 [place] [address] PCP - Cheo TAYLOR 10/01/21 Herman West MD [address] [facility] 100 [place] [address] PCP - General Family Medicine 11/29/23 Satish Ruvalcaba MD [address] [place] [address] Referring Physician Ophthalmology 12/26/23 Jojo Jc LPN [address] [facility] [address] [place] [address] 01/01/25 documented as of this encounter
--- OUTSIDE RECORDS SUMMARY | 2025-04-08 15:08 | XMS_ITS | Encounter Summary ---
Author Organization [facility] Address [address] [place] [address] Care Team Providers Care Inside Sales Executive Name Role Phone Herman Pak MD Unavailable [phone] Herman Pak MD Primary Care Provider [phone] Satish Ruvalcaba MD Unavailable [phone] Jojo Jc LPN Unavailable Encounter Details Date Type Department Care Team (Late st Contact Info) Description 03/05/2024 Clinisync Result Encounter [facility] External Department Unsolicited Herman Pak MD [address] [place] [address] Social History Tobacco Use Types Packs/Day Years [...] How often do you attend chur or yazdanism services? More than 4 times per year 12/04/2023 Do you belong to any clubs o r organizations such as spiritism groups, unions, fraternal or athletic groups, or [...] Recorded Patient Health Questionnaire-2 Score 0 12/26/2023 [facility] Occupat ional Health - Occupational Stress [...] place to sleep or slept in a long-term (including now)? No 12/04/2023 Sex and Gender [...] FM [address] [place] [address] Herman Pak MD [address] [facility] [address] [place] [address] documented as of this encounter Procedures Procedure Name Priority Date/Time Associated Diagnosis Comments NM AL PERF SPECT REST STR 03/05/2024 2:32 PM EDT documented in this encounter Results * NM AL PERF SPECT REST STR (03/05/2024 2:32 PM EDT) Anatomical Region Laterality Modality Other 03/05/2024 2:32 PM EDT Narrative 03/05/2024 2:33 PM EDT [facility] [place] [id number] Nuclear Medicine Report Signed Patient: Go Kirkland MR#: [id number] : 1950 Acct:[id number] Age/Sex: 73 / M ADM Date: 03/04/24 Loc: [place] Attending Dr: HERMAN PAK Ordering Physician: HERMAN PAK Date of Service: 03/04/24 Procedure(s): NM al perf SPECT rest str Accession Number(s): [id number] cc: HERMAN PAK Patient Name: GO KIRKLAND MR#: [id number] : 1950 Exam Date: 03/04/2024 Ordering Doctor: DR HERMAN PAK . RADIOLOGY REPORT PROCEDURE: NM AL PERF SPECT REST STR COMPARISON: None. INDICATIONS: CHEST PRESSURE, SHORTNESS OF BREATH TECHNIQUE: Exam Description: Stress/Rest one day protocol gated SPECT Rest Imagin.9 mCi Tc-99m Cardiolite IV on 03/04/2024 Stress Imaging 30.2 mCi Tc-99m Cardiolite IV on 03/04/2024 Exercise Protocol: 0.4 mg Lexiscan given IV Heart Rate (bpm): Rest: 71 Max: 100 PMHR: 68 Blood Pressure: Rest: 156/82 Max: 156/82 Symptoms: Rest and peak stress ECG findings were normal and the exercise portion of the study was normal per attending physician Dr. Fajardo . For more details please see separate cardiac stress test report. FINDINGS: QUALITY OF STUDY: Excellent. PERFUSION DEFECT: LOCATION: Basal inferior. Mid-inferior. Apical inferior. SIZE: Medium (3-4 segments). SEVERITY: Mild. TYPE: Persistent. WALL MOTION: Mild hypokinesis: LV SIZE: Enlarged; EDV 142 mL. TID / TCD: None; 1.0 LVEF: Abnormal. Calculated EF 45%. SUMMARY: Myocardial perfusion imaging study has ABNORMAL findings. CONCLUSION: 1. No acute or reversible ischemia. 2. Fixed, mild ischemia of inferior wall. 3. Global mild hypokinesis. 4. Left ventriculomegaly, 142 mL. 5. Abnormal low left ventricle ejection fraction, 45%. Dictated by: Domenic Son M.D. on 03/05/2024 at 14:24 Approved by: Domenic Son M.D. on 03/05/2024 at 14:32 Dictated By: Domenic Son M.D. Signed By: 03/05/24 1433 DD/ 31 TD/TT: Legal Executive: Procedure Note Radiology, Radiologist, MD - 03/05/2024 [place] [address] Nuclear Medicine Report Signed Patient: Go Kirkland MMR#: [id number] : 1950Acct:[id number] Age/Sex: 73 / MADM Date: 03/04/24 Loc: [place] Attending Dr: HERMAN PAK Ordering Physician: HERMAN PAK Date of Service: 03/04/24 Procedure(s): NM al perf SPECT rest str Accession Number(s): [id number] cc: HERMAN PAK Patient Name: GO KIRKLAND MR#: [id number] : 1950 Exam Date: 03/04/2024 Ordering Doctor: DR HERMAN PAK . RADIOLOGY REPORT PROCEDURE: NM AL PERF SPECT REST STR COMPARISON: None. INDICATIONS: CHEST PRESSURE, SHORTNESS OF BREATH TECHNIQUE: Exam Description: Stress/Rest one day protocol gated SPECT Rest Imagin.9 mCi Tc-99m Cardiolite IV on 03/04/2024 Stress Imaging 30.2 mCi Tc-99m Cardiolite IV on 03/04/2024 Exercise Protocol: 0.4 mg Lexiscan given IV Heart Rate (bpm): Rest: 71 Max: 100 PMHR: 68 Blood Pressure: Rest: 156/82 Max: 156/82 Symptoms: Rest and peak stress ECG findings were normal and the exercise portion ofthe study was normal per attending physician Dr. Fajardo . For more detailsplease see separate cardiac stress test report. FINDINGS: QUALITY OF STUDY: Excellent. PERFUSION DEFECT: LOCATION: Basal inferior. Mid-inferior. Apical inferior. SIZE: Medium (3-4 segments). SEVERITY: Mild. TYPE: Persistent. WALL MOTION: Mild hypokinesis: LV SIZE: Enlarged; EDV 142 mL. TID / TCD: None; 1.0 LVEF: Abnormal. Calculated EF 45%. SUMMARY: Myocardial perfusion imaging study has ABNORMAL findings. CONCLUSION: 1. No acute or reversible ischemia. 2. Fixed, mild ischemia of inferior wall. 3. Global mild hypokinesis. 4. Left ventriculomegaly, 142 mL. 5. Abnormal low left ventricle ejection fraction, 45%. Dictated by: Domenic Son M.D. on 03/05/2024 at 14:24 Approved by: Domenic Son M.D. on 03/05/2024 at 14:32 Dictated By: Domenic Son M.D. Signed By:03/05/241432 DD/ 31 TD/TT: Legal Executive: Herman Pak MD [facility] Final Resu lt documented in this encounter Visit Diagnoses Not on filedocumented in this encounter Additional Health Concerns Assessment Noted Time PHQ-9 Depression Total Score: 1 12/26/19 24 9:00 AM EDT A fall risk assessment has been complete d for the patient 08/03/2023 2:25 PM EDT documented as of this encounter Care Teams Inside Sales Executive Relationship Specialty Start Date End Date Herman Pak MD 112 [facility] 100 [place] [address] PCP - Cheo TAYLOR 10/01/21 Herman Pak MD 112 [facility] 100 [place] [address] PCP - General Family Medicine 11/29/23 Satish Ruvalcaba MD [address] [place] [address] Referring Physician Ophthalmology 12/26/23 Jojo Jc LPN 112 [facility] 110 [place] [address] 01/01/25 documented as of this encounter
--- OUTSIDE RECORDS SUMMARY | 2025-04-08 15:08 | XMS_ITS | Encounter Summary ---
Author Organization [facility] Address [address] [place] [place] [address] Care Team Providers Care Former Hand Name Role Phone Herman West MD Unavailable [phone] Herman West MD Primary Care Provider [phone] Satish Ruvalcaba MD Unavailable [phone] Jojo Jc LPN Unavailable Encounter Details Date Type Department Care Team (Latest Contact Info) Description 03/25/2025 Travel Social History Tobacco Use Types Packs/Day Years [...] week 02/04/2025 How often do you attend [facility] or scientology services? More than 4 times per year 02/04/2025 Do you belong to any clubs o r organizations such as jain groups, unions, fraternal or athletic groups, or [...] Recorded Patient Health Questionnaire-2 Score 0 02/24/2025 [facility] Occupat ional Health - Occupational [...] place to sleep or slept in a care home (including now)? No 12/04/2023 Housing Stability [...] any time in the past 12 m [facility], were you homeless or living in a care home (including now)? No 02/04/2025 Sex and [...] FM [address] [place] [address] Herman West MD 112 [facility] [address] [place] [address] documented as of this encounter Visit Diagnoses Not on filedocumented in this encounter Additional Health Concerns Assessment Noted Time PHQ-9 Depression Total Score: 1 12/26/19 24 9:00 AM EDT A fall risk assessment has been complete d for the patient 08/01/2024 11:39 AM EDT documented as of this encounter Care Teams Former Hand Relationship Specialty Start Date End Date Herman West MD [address] [place] [address] PCP - Cheo TAYLOR 10/01/21 Herman West MD [address] [place] [address] PCP - General Family Medicine 11/29/23 Satish Ruvalcaba MD [address] [place] [address] Referring Physician Ophthalmology 12/26/23 Jojo Jc LPN [address] [place] [address] 01/01/25 documented as of this encounter
--- OUTSIDE RECORDS SUMMARY | 2025-04-08 15:08 | XMS_ITS | Encounter Summary ---
Author Organization [facility] Address [address] [place] [address] Care Team Providers Care Oyster Sorter Name Role Phone Herman West MD Unavailable [phone] Herman West MD Primary Care Provider [phone] Satish Ruvalcaba MD Unavailable [phone] Jojo Jc LPN Unavailable Reason for Visit * Reason Onset Date Comments Med Refill 07/14/2024 Encounter Details Date Type Department Care Team (Late st Contact Info) Description 07/14/2024 Refill [facility] [address] [place] [address] Herman West MD [address] [place] [address] Social History Tobacco Use Types Packs/Day Years [...] How often do you attend chur or lutheran services? More than 4 times per year 12/04/2023 Do you belong to any clubs o r organizations such as protestant groups, unions, fraternal or athletic groups, or [...] Recorded Patient Health Questionnaire-2 Score 0 12/26/2023 [facility] [place] of Occupat ional Health - Occupational Stress [...] place to sleep or slept in a longterm (including now)? No 12/04/2023 Sex and Gender [...] [facility] [address] [place] [address] Herman West MD [address] [place] [address] (Fax) documented as of this encounter Visit Diagnoses Not on filedocumented in this encounter Additional Health Concerns Assessment Noted Time PHQ-9 Depression Total Score: 1 12/26/19 24 9:00 AM EDT A fall risk assessment has been complete d for the patient 08/03/2023 2:25 PM EDT documented as of this encounter Care Teams Oyster Sorter Relationship Specialty Start Date End Date Herman West MD [address] [place] [address] PCP - Cheo TAYLOR 10/01/21 Herman West MD [address] [facility] 100 [place] [address] PCP - General Family Medicine 11/29/23 Satish Ruvalcaba MD [address] [place] [address] Referring Physician Ophthalmology 12/26/23 Jojo Jc LPN [address] [place] [address] 01/01/25 documented as of this encounter
--- OUTSIDE RECORDS SUMMARY | 2025-04-08 15:08 | XMS_ITS | Clinical Summary ---
Author Organization [facility] Healthcare Address [address] [place] [address] Care Team Providers Care Multimedia Producer Name Role Phone Herman West MD Unavailable [phone] Herman West MD Primary Care Provider [phone] Satish Ruvalcaba MD Unavailable [phone] Jojo Jc LPN Unavailable Allergies No known active allergies Medications aspirin 81 MG EC tablet Take 81 mg by mouth Daily 03/23/25 Active OneTouch Verio test strip 1 each by Other route in the morning and 1 each before bedtime. 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) USE DIRECTED TWICE DAILY and NEEDED 200 each 3 024 Active Blood Glucose Monitoring Suppl (True Metrix Meter) w/Device kit USE DIRECTED to check BLOOD SUGAR TWICE DAILY 024 Active Continuous Glucose Slip Filler (FreeStyle Bridger 3 [place]) deviceIndications:T ype 2 diabetes mellitus with both eyes affected by mild nonproliferative retinopathy without macular edema, without long-term current use of insulin ([facility]) 1 Device See administration instructions Using Bridger 3 plus sensors 1 each 025 Active insulin degludec (Tresiba FlexTouch) 100 UNIT/ML injectionIndication s:Type 2 diabetes mellitus with both eyes affected by mild nonproliferative retinopathy without macular edema, without long-term current use of insulin ([facility]) Inject 10 Units under the skin Daily 15 mL Active semaglutide (Rybelsus) 14 MG tabletIndications:T ype 2 diabetes mellitus with both eyes 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 Take before meals. 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 100 each 025 2025 Active losartan (Cozaar) 50 MG tabletIndications:B enign essential hypertension Take 1 tablet (50 mg) by mouth in the morning. 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 Do not crush, chew, or split. 180 tablet 1 025 2024 Active allopurinol (Zyloprim) 100 MG tabletIndications:H yperuricemia Take 1 tablet (100 mg) by mouth Daily 90 tablet 1 025 2024 Active atorvastatin (Lipitor) 40 MG tablet Take 40 mg by mouth at bedtime Active metFORMIN XR (Glucophage-XR) 750 MG 24 hr tabletIndications:T ype 2 diabetes mellitus with hyperglycemia, without long-term current use of insulin ([facility]) Take 1 tablet (750 mg) by mouth in the morning and 1 tablet (750 mg) before bedtime. Do not crush, chew, or split. 180 tablet 1 025 2024 Discontin ued(Reord er) allopurinol (Zyloprim) 100 MG tabletIndications:H yperuricemia Take 1 tablet (100 mg) by mouth Daily 90 tablet 1 025 2024 Discontin ued(Reord er) clopidogrel (Plavix) 75 MG tablet Take 75 mg by mouth Daily 025 2024 Discontin ued(Disco ntinued by another clinician ) Active Problems Problem Noted Date Diagnosed Date Non morbid obesity due to excess calories 2024 Ischemic cardiomyopathy 01/07/2024 Overview (01/07/2024): EKG and echocardiogram 2019 Score Index: 2.00; The following segments are hypokinetic: apical septal, apical inferior, apical lateral and apex. EF 50 percent Right ventricular dilation 01/07/2024 Overview (01/07/2024): Mild, echocardiogram August 2019 Interstitial pulmonary fibrosis 01/07/2024 Overview (01/07/2024): Mild interstitial prominence consistent with post inflammatory sequela (Covid 19) and interstitial lung disease. CT scan 03/13/2022 Former cigarette smoker 01/07/2024 Other tear of medial meniscu s, current injury, right knee, initial encounter 07/31/2023 Mild cognitive impairment 07/31/2023 Microalbuminuria 07/31/2023 Left bundle branch block 07/31/2023 Generalized osteoarthritis 07/31/2023 Obstructive sleep apnea nati kamilla with continuous positive airway pressure (CPAP) 07/31/2023 Non-alcoholic fatty liver disease 07/31/2023 First degree atrioventricular block 07/31/2023 Hyperuricemia 07/31/2023 Diverticulosis of large intestine without hemorr jaky 07/31/2023 Degenerative joint disease of knee 07/31/2023 Chronic pain 07/31/2023 Chronic diastolic heart failure 07/31/2023 Overview (01/07/2024): Echocardiogram August 2019 Chronic allergic conjunctivitis 07/31/2023 Bilateral tinnitus 07/31/2023 Benign localized prostatic h yperplasia without lower urinary tract symptoms (LUTS) 07/31/2023 Benign essential hypertension 07/31/2023 Arthritis of right shoulder region 07/31/2023 Arthritis of right acromioclavicular joint 07/31 Arthritis of right knee 07/31/2023 Arthritis of left knee 07/31/2023 Vasculogenic erectile dysfunction 07/13/2023 Type 2 diabetes mellitus wit h both eyes affected by mild nonproliferative retinopathy without macular edema, with long-term current use of insulin 07/13/2023 Tubular adenoma of colon 07/13/2023 Sensorineural hearing loss, bilateral 07/13/2023 Pseudophakia of both eyes 07/13/2023 Presbyopia of both eyes 07/13/2023 Resolved Problems Problem Noted Date Diagnosed Date Resolved Date Class 1 obesity due to exces s calories with serious comorbidity and body mass index (BMI) of 33.0 to 33.9 in adult 07/21/2024 10/20/2024 Type 2 diabetes mellitus 07/31/2023 Sciatica 07/13/2023 12/20/2023 Encounters Date Type Department Care Team Description 04/08/2025 Travel 03/25/2025 Travel 03/25/2025 Orders Only [facility] [address] [facility] [address] [place] [address] Herman West MD Retinal detachment, traction, left (Primary Dx) 03/24/2025 Patient Outreach [facility] [address] [place] [address] Cristin Tolbert RN 03/24/2025 Telephone [facility] [address] [place] [address] Herman West MD Care Coordination 03/19/2025 Orders Only [facility] [address] [place] [address] Angélica Taveras, [place] Type 2 diabetes mellitus with hyperglycemia, without long-term current use of insulin (HCC); Hyperuricemia 02/24/2025 8:30 AM EDT Office Visit [facility] [address] [place] [address] Herman West MD Benign essential hypertension (Primary Dx); Hypertensive nephropathy ; Microalbuminuria; Diabetic nephropathy associated with type 2 diabetes mellitus (HCC); Type 2 diabetes mellitus with hyperglycemia, without long-term current use of insulin (HCC); Type 2 diabetes mellitus with both eyes affected by mild nonproliferative retinopathy without macular edema, without long-term current use of insulin (HCC); Hyperuricemia; Former cigarette smoker; Non morbid obesity due to excess calories 02/24/2025 Bamboo flowsheet [facility] [address] [place] [address] Hermna West MD 02/24/2025 Travel 02/17/2025 Telephone [facility] [address] [place] [address] [place], [place] Care Coordination 02/17/2025 Travel 02/09/2025 Telephone [facility] [address] [place] [address] [place], [place] Care Coordination 02/04/2025 Travel 02/03/2025 Telephone [facility] [address] [place] [address] [place], [place] 01/21/2025 Telephone [facility] [address] [place] [address] Herman West MD Lab Orders 01/14/2025 Orders Only [facility] [address] [place] [address] Herman West MD 01/13/2025 Telephone [facility] [address] [place] [address] Herman West MD from Last 3 Months Family History Medical History Relation Name Comments No Known Problems Brother No Known Problems Daughter Emphysema Father Diabetes Father's Sister Aunt Jeniffer Arthritis Mother Ruddy choking accident Mother Ruddy No Known Problems Sister No Known Problems Son Relation Name Status Comments Brother 2 brothers Daughter 2 daughters Father Father's Sister Aunt Jeniffer Mother Ruddy Sister 3 sisters Son 3 sons Social History Tobacco Use Types Packs/Day Years Used Date Smoking Tobacco: Former Cigarettes 1 25 0 10/01/1965 - 10/01/1990 Smokeless Tobacco: Never Tobacco Cessation:Counseling Given: Yes Comments:Quit 1990 Alcohol Use Standard Drinks/Week Comments [...] often do you attend chur ch or zoroastrianism services? More than 4 times per year 02/04/2025 Do you belong to any clubs o r organizations such as mormon groups, unions, fraternal or athletic groups, or [...] Recorded Patient Health Questionnaire-2 Score 0 02/24/2025 [facility] - Occupational [...] any time in the past 12 m [facility], were you homeless or living in a usp (including now)? No 02/04/2025 Sex and Gender Information Value Date Recorded Sex Assigned at Male 08/04/2023 11:52 AM EDT Legal Sex Male 6:42 PM EDT Gender Identity Male 12/13/2022 6:42 PM EDT Sexual Orientation Straight 08/04/2023 11 :52 AM EDT Last Filed Vital Signs Vital Sign Reading Time Taken Comments Blood Pressure 138/86 02/24/2025 8:31 AM EDT Pulse 82 02/24/2025 8:31 AM EDT Temperature - - Respiratory Rate - - Oxygen Saturation 96% 02/24/2025 8:31 AM EDT Inhaled Oxygen Concentration - - Weight 108 kg (237 lb) 02/24/2025 8:31 AM EDT Height 180.3 cm (5' 11 ) 02/24/2025 8:31 AM EDT Body Mass Index 33.05 02/24/2025 8:31 AM EDT Plan of Treatment Upcoming Encounters Date Type Department Care Team (Late st Contact Info) Description 04/09/2025 8:00 AM EDT Office Visit [facility] [address] [facility] [address] [place] [address] Herman West MD [address] [facility] [address] [place] [address] Health Maintenance Due Date Last Done Comments CT Colonography 1950 FIT-DNA 1950 FIT 1950 FOBT 1950 Sigmoidoscopy 1950 Diabetes: Hemoglobin A1C 05/23/2025 025, 10/17/2024, 07/18/2024, Additional history exists Diabetes: Retinopathy Screening 10/17/2025 10/17/2024, 10/10/2023, 06/13/2022, Additional history exists Diabetes: Urine Protein Screening 02/20/2026 02/20/2025, 12/11/2023, 11/30/2021, Additional history exists Colonoscopy 11/05/2029 11/05/2019 Colorectal Cancer Screening 11/05/2029 Influenza Vaccine Discontinued Pneumococcal Vaccine: 65+ Years Discontinued Procedures Procedure Name Priority Date/Time Associated Diagnosis Comments MICROALBUMIN / CREATININE URINE RATIO Routine 02/20/2025 8:45 AM EDT Microalbuminuria Type 2 diabetes mellitus with both eyes affected by mild nonproliferative retinopathy without macular edema, without long-term current use of insulin (HCC) HEMOGLOBIN A1C Routine 02/20/2025 8:45 AM EDT Type 2 diabetes mellitus with both eyes affected by mild nonproliferative retinopathy without macular edema, without long-term current use of insulin (HCC) URIC ACID Routine 02/06/2025 9:48 AM EDT Hyperuricemia LIPID PANEL Routine 02/06/2025 9:48 AM EDT Screening for lipid disorders COMPREHENSIVE METABOLIC PANEL Routine 02/06/2025 9:48 AM EDT Type 2 diabetes mellitus with both eyes affected by mild nonproliferative retinopathy without macular edema, without long-term current use of insulin (HCC) Benign essential hypertension DIABETIC RETINOPATHY SCREENING - OU - BOTH EYES Routine 10/17/2024 8:06 AM EST COLONOSCOPY Routine 11/05/2019 12:00 PM EST from Last 3 Months or Most Recently Relevant to Health Maintenance Results * (ABNORMAL) Microalbumin / creatinine urine ratio (02/20/2025 8:45 AM EDT) CREATININE, RANDOM URINE 46 20 - 320 mg/dL [facility] ALBUMIN, URINE 1.5 See Note: mg/dL [facility] Comment: Reference Range: Reference Range Not established ALBUMIN/CREATININE RATIO, RANDOM URINE 33(H) <30 mg/g creat [facility] Comment: The ADA defines abnormalities in albumin excretion as follows: Albuminuria Category Result (mg/g creatinine) Normal to Mildly increased <30 Moderately increased 30-299 Severely increased > OR = 300 The ADA recommends that at least two of three specimens collected within a 3-6 month period be abnormal before considering a patient to be within a diagnostic category. Urine Urine specimen obtained by clean catch procedure / Unknown 02/20/2025 8:45 AM EDT 02/20/2025 8:47 AM EDT Narrative [facility] - 02/21/2025 3:14 PM EDT FASTING:YES FASTING: YES Resulting Agency Comment Performing Organization Information Site ID: QPT Name: [facility] Address: [address] [place] [address], [address] [place] [phone] Director: Juan Mckenna MD Herman West MD LAB URINE ORDERABLES Final R esult Performing Organization Address [facility] de Phone Number [facility] * (ABNORMAL) Hemoglobin A1c (02/20/2025 8:45 AM EDT) Hemoglobin A1C 8.5(H) <5.7 % [facility] Comment: For someone without known diabetes, a [...] A1c for diagnosis of diabetes for children. Blood Venous blood specimen / Unknown 02/20/2025 8:45 AM EDT 02/20/2025 8:47 AM EDT Narrative [facility] - 02/21/2025 3:14 PM EDT FASTING:YES FASTING: YES Resulting Agency Comment Performing Organization Information Site ID: QPT Name: [facility] Address: [address] [place] [address], [address] [place] [phone] Director: Juan Mckenna MD Herman West MD LAB BLOOD ORDERABLES Final R esult Performing Organization Address [facility] de Phone Number [facility] * Uric acid (02/06/2025 9:48 AM EDT) URIC ACID 5.5 4.0 - 8.0 mg/dL [facility] Comment: Therapeutic target for gout patients: <6.0 mg/dL Blood Venous blood specimen / Unknown 02/06/2025 9:48 AM EDT 02/06/2025 9:49 AM EDT Narrative [facility] - 02/07/2025 8:53 AM EDT FASTING:YES FASTING: YES Resulting Agency Comment Performing Organization Information Site ID: QPT Name: [facility] Address: [address] [place] [address], [address] [place] [phone] Director: Juan Mckenna MD Herman West MD LAB BLOOD ORDERABLES Final R esult [facility] * Lipid panel (02/06/2025 9:48 AM EDT) CHOLESTEROL, TOTAL 169 <200 mg/dL [facility] HDL CHOLESTEROL 63 > OR = 40 mg/dL [facility] TRIGLYCERIDES 75 <150 mg/dL [facility] LDL CHOLESTEROL 90 mg/dL (calc) [facility] Comment: Reference range: <100 Desirable range <100 mg/dL for primary prevention; <70 mg/dL for patients with CHD or diabetic patients with > or = 2 CHD risk factors. LDL-C is now calculated using the Keyshawn-Crista calculation, which is a validated novel method providing better accuracy than the Friedewald equation in the estimation of LDL-C. Keyshawn CHAVEZ et al. LAKESHA. 2013;310(19): 3969-0639 (http://education.Sezion.payByMobile/faq/CBS707) CHOL/HDLC RATIO 2.7 <5.0 (calc) [facility] NON HDL CHOLESTEROL 106 <130 mg/dL (calc) [facility] Comment: For patients with diabetes plus 1 major ASCVD risk factor, treating to a non-HDL-C goal of <100 mg/dL (LDL-C of <70 mg/dL) is considered a therapeutic option. Blood Venous blood specimen / Unknown 02/06/2025 9:48 AM EDT 02/06/2025 9:49 AM EDT Narrative [facility] - 02/07/2025 8:53 AM EDT FASTING:YES FASTING: YES Resulting Agency Comment Performing Organization Information Site ID: QPT Name: [facility] Address: One[address] Torres , [address] [place] [address] Director: Juan Mckenna MD Herman West MD LAB BLOOD ORDERABLES Final R esult [facility] * (ABNORMAL) Comprehensive metabolic panel (02/06/2025 9:48 AM EDT) Glucose 198(H) 65 - 99 mg/dL [facility] Comment: Fasting reference interval For someone without known diabetes, a glucose value >125 mg/dL indicates that they may have diabetes and this should be confirmed with a follow-up test. BUN 9 7 - 25 mg/dL [facility] Creatinine 0.61(L) 0.70 - 1.28 mg/dL [facility] EGFR 101 > OR = 60 mL/min/1.7 3m2 [facility] BUN/CREATININE RATIO 15 6 - 22 (calc) [facility] Sodium 137 135 - 146 mmol/L [facility] Potassium, Bld 4.3 3.5 - 5.3 mmol/L [facility] Chloride 102 98 - 110 mmol/L [facility] Carbon Dioxide 24 20 - 32 mmol/L [facility] Calcium 9.4 8.6 - 10.3 mg/dL [facility] PROTEIN, TOTAL 6.8 6.1 - 8.1 g/dL [facility] ALBUMIN 4.3 3.6 - 5.1 g/dL [facility] GLOBULIN 2.5 1.9 - 3.7 g/dL (calc) [facility] ALBUMIN/GLOBULIN RATIO 1.7 1.0 - 2.5 (calc) [facility] BILIRUBIN, TOTAL 0.5 0.2 - 1.2 mg/dL [facility] ALKALINE PHOSPHATASE 40 35 - 144 U/L [facility] AST 15 10 - 35 U/L [facility] ALT 16 9 - 46 U/L [facility] Blood Venous blood specimen / Unknown 02/06/2025 9:48 AM EDT 02/06/2025 9:49 AM EDT Narrative [facility] - 02/07/2025 8:53 AM EDT FASTING:YES FASTING: YES Resulting Agency Comment Performing Organization Information Site ID: QPT Name: [facility] Address: [address], [address] [place] [address] Director: Juan Mckenna MD Herman West MD LAB BLOOD ORDERABLES Final R esult YOLANDA * Diabetic Retinopathy Screening - OU - Both Eyes (10/17/2024 8:06 AM EST) Anatomical Region Laterality Modality Head Other Herman West MD OPHTH PHOTOGRAPHY Final Resu lt * Colonoscopy (11/05/2019 12:00 PM EST) Anatomical Region Laterality Modality Endoscopy 11/05/2019 12:0 0 PM EST Narrative 11/05/2019 12:00 PM EST PERFORMED AT [facility] LOCATION:[id number] Procedure Note CONVERSION, GENERIC - 02/14/2023 PERFORMED AT [facility] LOCATION:[id number] Herman West MD ENDOSCOPY PROCEDURE ORDERABL ES Final Result from Last 3 Months or Most Recently Relevant to Health Maintenance Insurance [employer] Care Teams Multimedia Producer Relationship Specialty Start Date End Date Herman West MD [address] [address] PCP - Cheo TAYLOR 10/01/21 Herman West MD [address] [place] [address] PCP - General Family Medicine 11/29/23 Satish Ruvalcaba MD [address] [place] [address] Referring Physician Ophthalmology 12/26/23 Jojo Jc LPN [address] [place] [address] 01/01/25
--- OUTSIDE RECORDS SUMMARY | 2025-04-08 15:08 | XMS_ITS ---
Author Organization Unknown Plan of Treatment Description Planned Activity Planned Timing - Telephone encounter - Patient Care team information Name Category Status Period Participants - - Proposed period not known - Notes Author - Date Note - [id number] no notes
--- OUTSIDE RECORDS SUMMARY | 2025-04-08 15:08 | XMS_ITS | Encounter Summary ---
Author Organization [facility] Address [address] [place] [address] Care Team Providers Care Supervisor Drying And Winding Name Role Phone Herman West MD Unavailable [phone] Herman West MD Primary Care Provider [phone] Satish Ruvalcaba MD Unavailable [phone] Jojo Jc LPN Unavailable Encounter Details Date Type Department Care Team (Late st Contact Info) Description 03/06/2024 Orders Only [facility] [address] [facility] [place] [address] Herman West MD [address] [facility] [address] [place] [address] Social History Tobacco Use Types Packs/Day Years [...] often do you attend chur ch or amish services? More than 4 times per year 12/04/2023 Do you belong to any clubs o r organizations such as worship groups, unions, fraternal or athletic groups, or [...] Health Questionnaire-2 Score 0 12/26/2023 [facility] - Occupational [...] place to sleep or slept in a snf (including now)? No 12/04/2023 Sex and Gender [...] 04/09/2025 8:00 AM EDT Office Visit [facility] [address] [place] [address] Herman West MD [address] [place] [address] documented as of this encounter Visit Diagnoses Not on filedocumented in this encounter Additional Health Concerns Assessment Noted Time PHQ-9 Depression Total Score: 1 12/26/19 24 9:00 AM EDT A fall risk assessment has been complete d for the patient 08/03/2023 2:25 PM EDT documented as of this encounter Care Teams Supervisor Drying And Winding Relationship Specialty Start Date End Date Herman West MD [address] [place] [address] PCP - Cheo TAYLOR 10/01/21 Herman West MD [address] [place] [address] PCP - General Family Medicine 11/29/23 Satish Ruvalcaba MD [address] [place] [address] Referring Physician Ophthalmology 12/26/23 Jojo Jc LPN [address] [place] [address] 01/01/25 documented as of this encounter
--- OUTSIDE RECORDS SUMMARY | 2025-04-08 15:08 | XMS_ITS | Encounter Summary ---
Author Organization [facility] Address [address] [place] [address] Care Team Providers Care Clinical Research Associate Name Role Phone Herman West MD Unavailable [phone] Herman West MD Primary Care Provider [phone] Satish Ruvalcaba MD Unavailable [phone] Jojo Jc LPN Unavailable Encounter Details Date Type Department Care Team (Latest Contact Info) Description 04/08/2025 Travel Social History Tobacco Use Types Packs/Day [...] week 02/04/2025 How often do you attend [facility] or moravian services? More than 4 times per year 02/04/2025 Do you belong to any clubs o r organizations such as yazdanism groups, unions, fraternal or athletic groups, or [...] Patient Health Questionnaire-2 Score 0 02/24/2025 [facility] - Occupational [...] place to sleep or slept in a penitentiary (including now)? No 12/04/2023 Housing Stability Vital Sign Answer Jaylan e Recorded In the last 12 months, was t here a time when you were not able to pay the mortgage or rent on time? No 02/04/2025 In the past 12 months, how m any times have you moved where you were living? 0 02/04/2025 At any time in the past 12 m [facility], were you homeless or living in a penitentiary (including now)? No 02/04/2025 Sex and Gender [...] FM [address] [place] [address] Herman West MD [address] [facility] [address] [place] [address] documented as of this encounter Visit Diagnoses Not on filedocumented in this encounter Additional Health Concerns Assessment Noted Time PHQ-9 Depression Total Score: 1 12/26/19 24 9:00 AM EDT A fall risk assessment has been complete d for the patient 08/01/2024 11:39 AM EDT documented as of this encounter Care Teams Clinical Research Associate Relationship Specialty Start Date End Date Herman West MD [address] [place] [address] PCP - Cheo TAYLOR 10/01/21 Herman West MD [address] [place] [address] PCP - General Family Medicine 11/29/23 Satish Ruvalcaba MD [address] [place] [address] Referring Physician Ophthalmology 12/26/23 Jojo Jc LPN [address] [place] [address] 01/01/25 documented as of this encounter
--- OUTSIDE RECORDS SUMMARY | 2025-04-08 15:09 | XMS_ITS | Encounter Summary ---
Author Organization [employer] [facility] [employer] Address [id number] [address] [place] [address] Care Team Providers Care Nursing Executive Name Role Phone Herman West MD Primary Care Provider [phone] Encounter Details Date Type Department Care Team (Late st Contact Info) Description 03/24/2025 Orders Only [facility] [address] [place] [id number] Transcribe, Orders Support User Pain (Primary Dx) Social History Tobacco Use Types [...] on file documented as of this encounter Plan of Treatment Not on file documented as of this encounter Results * MR brain without contrast (03/23/2025 [...] External IMG CT ORDERABLES Fin al Result documented in this encounter Visit Diagnoses Diagnosis Pain- Primary Generalized pain documented in this encounter Care Teams Nursing Executive Relationship Specialty Start Date End Date Herman West MD PCP - General Family Medicine 07/25/19 documented as of this encounter
--- OUTSIDE RECORDS SUMMARY | 2025-04-08 15:09 | XMS_ITS | Encounter Summary ---
Author Organization [employer] [facility] [employer] Address [facility] [id number] [address] [place] [address] Care Team Providers Care Bucket Turner Name Role Phone Herman West MD Primary Care Provider + [phone] Reason for Visit * Reason Onset Date Comments Med Refill 01/12/2025 Encounter Details Date Type Department Care Team (Late st Contact Info) Description 01/12/2025 Refill [facility] - Family Medicine [address] [place] [address] Francesca Knowles CMA Social History Tobacco Use Types Packs/Day Years [...] on filedocumented in this encounter Care Teams Bucket Turner Relationship Specialty Start Date End Date Herman West MD PCP - General Family Medicine 07/25/19 documented as of this encounter
--- OUTSIDE RECORDS SUMMARY | 2025-04-08 21:31 | XMS_ITS | CCD ---
Author Organization [facility] Care Team Providers Care Shear Helper Name Role Phone Danelle Silva Unavailable Essence Ledezma Unavailable DR HERMAN PAK Primary Care Unavailable POCOS, DR LY Attending Unavailable POCOS, DR LY Consulting Unavailable POCOS, DR LY Admitting Unavailable Herman Pak MD Unavailable Herman Pak MD Primary Care Provider Satish Ruvalcaba MD Unavailable [phone] Herman Pak MD Unavailable [phone] Herman Pak MD Primary Care Provider Hosea JUDD, Jojo Unavailable Unavailable HERMAN PAK Attending Unavailable HERMAN PAK Attending Unavailable HERMAN PAK Attending Unavailable HERMAN PAK Attending Unavailable HERMAN PAK Attending Unavailable HERMAN PAK Attending Unavailable Hosea JUDD, Jojo Unavailable HERMAN PAK Primary Care Unavailable HERMAN PAK Referring Unavailable HERMAN PAK Primary Care Unavailable HERMAN PAK Referring Unavailable HERMAN PAK Primary Care Unavailable HERMAN PAK Referring Unavailable HERMAN PAK Primary Care Unavailable HERMAN PAK Referring Unavailable HERMAN PAK Primary Care Unavailable Medications Current Medications Medication Drug Class(es) Dates Sig (Normalized) Sig (Original) acarbose 100 mg oral tablet (3 sources) alpha-Glucosidase Inhibitor Acarbose 100 MG Oral for 90 Active [id number] actuat albuterol 0.09 mg/actuat metered dose [...] every 6 hrs for 30 days Not-Taking allopurinol 100 mg oral tablet (20 sources) Xanthine Oxidase Inhibitor Start: 07-21-2024 End: 09-15-2025 take 1 tablet by mouth once daily allopurinol (Zyloprim) 100 MG tablet Indications: Hyperuricemia Take 1 tablet (100 mg) by mouth Daily 90 tablet 1 03/19/2025 09/15/2025 Active Start: 03-16-2024 Allopurinol Ac tive MG PO March 16, 2024 12:00am FreeTextSig: Oral; Note: Source Status: Taking; Qty: 90 delayed release tablet; Provider: Ricardo Mcclendon ( ) aspirin 81 mg delayed release oral tablet (15 sources) Platelet Aggregation Inhibitor, Nonsteroidal Anti-inflammatory Drug take 1 tablet by mouth once daily aspirin 81 MG EC tablet Take 81 mg by mouth Daily 03/23/25 Active take 1 tablet by mouth every oth er day aspirin 81 MG EC tablet Take 81 mg by mouth every other day. Active atorvastatin 40 mg oral tablet (1 source) HMG-CoA Reductase Inhibitor Start: 03-23-2025 take 1 tablet by mouth at bedtime atorvastatin (Lipitor) 40 MG tablet Take 40 mg by mouth at bedtime 03/23/2025 Active Blood Glucose Monitoring Suppl (True Metrix Meter) w/Device kit (15 sources) Start: 01-04-2024 Blood Glucose Monitoring Suppl (True Metrix Meter) w/Device kit USE DIRECTED to check BLOOD SUGAR TWICE DAILY 01/04/2024 Active Blood-Glucose Meter (True Metrix Glucose Meter) misc (1 source) Start: 03-16-2024 Blood-Glucose Meter (True Metrix Glucose Meter) [facility] EACH .ROUTE .MEDSUPPLY March 16, 2024 12:00am As directed Continuous Glucose Shoe Designer (FreeStyle Bridger 3 [place]) device (7 sources) Start: 10-23-2024 Continuous Glucose Shoe Designer (FreeStyle Bridger 3 Stay[place]) device Indications: Type 2 diabetes mellitus with both eyes affected by mild nonproliferative retinopathy without macular edema, without long-term current use of insulin ([facility]) 1 Device See administration instructions Using Bridger 3 plus sensors 1 each 10/23/2024 Active Start: 10-23-2024 Continuous Glu cose Shoe Designer (FreeStyle Bridger 3 Stay[place]) device Indications: Type 2 diabetes mellitus with both eyes affected by mild nonproliferative retinopathy without macular edema, without long-term current use of insulin (CMS/HCC) 1 Device See administration instructions Using Bridger 3 plus sensors 1 each 10/23/2024 Active Start: 10-23-2024 Continuous Glu cose Shoe Designer (FreeStyle Bridger 3 Stay[place]) device Indications: Type 2 diabetes mellitus with both eyes affected by mild nonproliferative retinopathy without macular edema, without long-term current use of insulin (CMS/HCC) 1 Device See administration instructions 10/23/2024 Active Continuous Glucose Sensor (FreeStyle Bridger 3 Plus Sensor) misc (7 sources) Start: 02-24-2025 End: 02-24-2026 Continuous Glucose Sensor (FreeStyle Bridger 3 Plus Sensor) misc Indications: Type 2 diabetes mellitus with both eyes affected by mild nonproliferative retinopathy without macular edema, without long-term current use of insulin ([facility]) Inject 1 Device into the skin Every 15 Days 6 each 3 02/24/2025 02/24/2026 Active Start: 02-24-2025 End: 02-24-2026 Continuous Glucose Sensor (F reeStyle Bridger 3 Plus Sensor) [facility] Indications: Type 2 diabetes mellitus with both eyes affected by mild nonproliferative retinopathy without macular edema, without long-term current use of insulin (CMS/HCC) Inject 1 Device into the skin Every 15 Days 6 each 3 02/24/2025 02/24/2026 Active Start: 10-23-2024 End: 02-24-2025 Continuous Glucose Sensor (F reeStyle Bridger 3 Plus Sensor) [facility] Indications: Type 2 diabetes mellitus with both eyes affected by mild nonproliferative retinopathy without macular edema, without long-term current use of insulin (CMS/HCC) Inject 1 Device into the skin Every 15 Days 6 each 3 10/23/2024 02/24/2025 Discontinued (Reorder) Start: 10-23-2024 End: 10-23-2025 Continuous Glucose Sensor (F reeStyle Bridger 3 Plus Sensor) [facility] Indications: Type 2 diabetes mellitus with both eyes affected by mild nonproliferative retinopathy without macular edema, without long-term current use of insulin (CMS/HCC) Inject 1 Device into the skin Every 15 Days 6 each 3 10/23/2024 10/23/2025 Active Continuous Glucose Sensor (FreeStyle Bridger 3 Sensor) [facility] (2 sources) Start: 10-23-2024 Continuous Glucose Sensor (FreeStyle Bridger 3 Sensor) [facility] Indications: Type 2 diabetes mellitus with both [...] tablet; Provider: Ricardo Mcclendon ( ) Losartan Potjhonyi um-HCTZ 100-12.5 MG Oral for 90 Active [...] ml insulin degludec 100 unt/ml pen injector (7 sources) Insulin Analog Start: 11-18-2024 inject 10 [IU] by subcutaneous injection once daily insulin degludec (Tresiba FlexTouch) 100 UNIT/ML injection Indications: Type 2 diabetes mellitus with both eyes affected by mild nonproliferative retinopathy without macular edema, without long-term current use of insulin ([facility]) Inject 10 Units under the skin Daily [...] Units under the skin Daily 10/23/2024 Active losartan potassium 50 mg oral tablet (20 sources) Angiotensin 2 Receptor Stuart Start: 07-21-2024 End: 08-23-2025 take 1 tablet by mouth in the morning losartan (Cozaar) 50 MG tablet Indications: Benign essential hypertension Take 1 tablet (50 mg) by mouth in the morning. 90 tablet 1 02/24/2025 08/23/2025 Active Start: 03-20-2024 End: 07-21-2024 take 1 tablet by mouth in the morning losartan (Cozaar) 25 MG tablet Indications: Type 2 diabetes mellitus with hyperglycemia, without long-term current use of insulin (CMS/HCC) Take 1 tablet (25 mg) by mouth in the morning. 90 tablet 03/20/2024 07/21/2024 Discontinued (Reorder) 24 hr metFORMIN hydrochloride 750 mg extended release oral tablet (20 sources) Biguanide Start: 07-15-2024 End: 09-15-2025 take 1 tablet by mouth every twenty-four hours in the morning metFORMIN XR (Glucophage-XR) 750 MG 24 hr tablet Indications: Type 2 diabetes mellitus with hyperglycemia, without long-term current use of insulin (HCC) Take 1 tablet (750 mg) by mouth in the morning and 1 tablet (750 mg) before bedtime. Do not crush, chew, or split. 180 tablet 1 03/19/2025 09/15/2025 Active Start: 03-16-2024 Metformin Acti ve MG PO March 16, 2024 12:00am metFORMIN HCl 10 00 MG Oral for 90 Active pioglitazone 45 mg oral tablet (3 [...] without long-term current use of insulin (HCC) Take 1 tablet (14 mg) by mouth [...] Drug Class(es) Dates Sig (Normalized) Sig (Original) azithromycin 250 mg oral tablet (10 sources) [...] oral tablet (6 sources) alpha-Adrenergic Agonist, Uncompetitive I-sykfld-M-aspartate Receptor Antagonist, Sigma-1 Agonist Start: 10-14-2024 End: 10-24-2024 take 1 tablet by mouth in the morning, then take 1 tablet by mouth in the evening, then take 1 tablet by mouth at bedtime kiuxjavdfkwizil-UG-NP (Capmist DM) 60-15-400 MG tablet Indications: Bronchitis Take 1 tablet by mouth in the morning and 1 tablet in the evening and 1 tablet before bedtime. Do all this for 10 days. 30 tablet 10/14/2024 10/22/2024 Discontinued (Therapy completed) Start: 03-16-2024 take 4 tablets by [facility] every twenty-four hours Gisfrjdbssrdonb-Ym-Knqtetgdjcv (Capmist Dm) 60-15-400 mg tablet Active 1 [...] 7 tablet 10/14/2024 10/22/2024 Discontinued (Therapy completed) methylPREDNISolone 4 mg oral tablet (7 sources) Corticosteroid Start: 09-28-2019 methylPREDNISolone 4 MG as directed Orally Once a day for 6 days Jul, Not-Taking Suprep Bowel Prep Kit 17.5-3.13-1.6 GM/180ML (3 sources) Start: 10-23-2019 Suprep Bowel Prep Kit 17.5-3.13-1.6 GM/180ML 177 ML BOTTLE AT 4 PM AND ONE BOTTLE AT 11 PM DAY PRIOR TO PROCEDURE Orally Twice a day for 1 day(s) Oct, Not-Taking Problems Active Problems Problem Classification Problem Date Documented Date Episodic/Chronic Cataract (15 sources) Bilateral pseudophakia; Translations: [Presence of intraocular lens] Onset: 07-13-2023 07-13-2023 Chronic Chronic obstructive pulmonary disease and bronchiectasis (4 sources) Bronchitis, not specified as acute or chronic; Translations: [Bronchitis] Onset: 07-19-2021 Resolved: 02-04-2022 Episodic Conduction disorders (20 sources) Left bundle branch block; Translations: [Left bundle-branch block, unspecified] Onset: 07-31-2023 07-31-2023 Chronic Congestive heart failure; nonhypertensive (15 sources) Chronic diastolic heart failure; Translations: [Chronic diastolic (congestive) heart failure] Onset: 07-31-2023 01-07-2024 Chronic Coronary atherosclerosis and other heart disease (15 sources) Ischemic myocardial dysfunction; Translations: [Ischemic cardiomyopathy] Onset: 01-07-2024 01-07-2024 Chronic Diabetes mellitus with complications (20 sources) Type 2 diabetes mellitus with mild nonproliferative diabetic retinopathy without macular edema, bilateral; Translations: [Diabetes with ophthalmic manifestations, type II or unspecified type, not stated as uncontrolled] Onset: 07-13-2023 07-13-2023 Chronic Diverticulosis and diverticulitis (15 sources) Diverticulum of large intestine without hemorrhage; Translations: [Diverticulosis of large intestine without perforation or abscess without bleeding] Onset: 07-31-2023 07-31-2023 Chronic Essential hypertension (20 sources) Hypertensive disorder; Translations: [Essential (primary) hypertension] Onset: 07-31-2023 03-16-2024 Chronic Gout and other crystal arthropathies (1 source) Gout; Translations: [Gout, unspecified] 03-16-2024 Chronic Hyperplasia of prostate (15 sources) Benign localized hyperplasia of prostate; Translations: [Benign prostatic hyperplasia without lower urinary tract symptoms] Onset: 07-31-2023 07-31-2023 Chronic Hypertension with complications and secondary hypertension (2 sources) Hypertensive renal disease; Translations: [Hypertensive chronic kidney disease with stage 1 through stage 4 chronic kidney disease, or unspecified chronic kidney disease] 02-24-2025 Chronic Inflammation; infection of eye (except that caused by tuberculosis or sexually transmitteddisease) (15 sources) Chronic allergic conjunctivitis; Translations: [Other chronic allergic conjunctivitis] Onset: 07-31-2023 07-31-2023 Chronic Osteoarthritis (20 sources) Degenerative joint disease involving multiple joints; Translations: [Polyosteoarthritis, unspecified] Onset: 07-31-2023 07-31-2023 Chronic Other and ill-defined heart disease (15 sources) Right cardiac ventricular dilatation; Translations: [Cardiomegaly] Onset: 01-07-2024 01-07-2024 Chronic Other ear and sense organ disorders (15 sources) Sensorineural hearing loss, bilateral; Translations: [Sensorineural hearing loss, bilateral] Onset: 07-13-2023 07-13-2023 Chronic Other hereditary and degenerative nervous system conditions (15 sources) Impaired cognition; Translations: [Mild cognitive impairment, so stated] Onset: 07-31-2023 07-31-2023 Chronic Other liver diseases (17 sources) Fatty (change of) liver, not elsewhere classified; Translations: [Other chronic nonalcoholic liver disease] Onset: 07-31-2023 07-31-2023 Chronic Other lower respiratory disease (15 sources) Fibrosis of lung; Translations: [Pulmonary fibrosis, unspecified] Onset: 01-07-2024 01-07-2024 Chronic Other male genital disorders (15 sources) Vasculopathic erectile dysfunction; Translations: [Male erectile dysfunction, unspecified] Onset: 07-13-2023 07-13-2023 Chronic Other nervous system disorders (15 sources) Chronic pain; Translations: [Other chronic pain] [...] Onset: 07-21-2024 Resolved: 10-20-2024 07-21-2024 Chronic Other upper respiratory infections (3 sources) Acute sinusitis, unspecified; Translations: [Viral upper respiratory tract infection] Onset: 09-23-2021 Resolved: 09-23-2021 Episodic Residual codes; unclassified (15 sources) Obstructive sleep apnea syndrome; Translations: [Obstructive sleep apnea (adult) (pediatric)] Onset: 07-31-2023 07-31-2023 Chronic Residual codes; unclassified (1 source) Pain, unspecified; Translations: [Pain, unspecified] Onset: 03-24-2025 Episodic Retinal detachments; defects; vascular occlusion; and retinopathy (1 source) Traction detachment of left retina; Translations: [Traction detachment of retina, left eye] 03-25-2025 Episodic Unclassified (1 source) CONTACT W/AND (SUSP) EXPOS COVID-19; Translations: [CONTACT W/AND (SUSP) EXPOS COVID-19] Onset: 04-14-2022 Unclassified (1 source) Telestroke Onset: 03-22-2025 Past or Other Problems Problem Classification Problem Date Documented Da te Episodic/Chronic Blindness and vision defects (15 sources) Presbyopia; Translations: [Presbyopia] Onset: 07-13-2023 07-13-2023 Episodic Diabetes mellitus without complication (16 sources) Diabetes mellitus; Translations: [Type 2 diabetes mellitus without complications] Onset: 07-31-2023 Resolved: 12-26-2023 03-16-2024 Chronic Genitourinary symptoms and ill-defined conditions (19 sources) Microalbuminuria; Translations: [Proteinuria, unspecified] Onset: 07-31-2023 07-31-2023 Episodic Immunizations and screening for infectious disease (2 sources) Contact with and (suspected) exposure to other viral communicable diseases; Translations: [Contact with and (suspected) exposure to other viral communicable diseases Z20.828] Onset: 07-19-2021 Resolved: 09-23-2021 Episodic Joint disorders and dislocations; trauma-related (15 sources) Tear of medial meniscus of knee; Translations: [Other tear of medial meniscus, current injury, right knee, initial encounter] Onset: 07-31-2023 07-31-2023 Episodic Mood disorders (15 sources) Mood disorders Onset: 12-26-2023 12-26-2023 Other and unspecified benign neoplasm (15 sources) Tubular adenoma of colon; Translations: [Benign neoplasm of colon, unspecified] Onset: 07-13-2023 07-13-2023 Episodic Other ear and sense organ disorders (15 sources) Bilateral tinnitus; Translations: [Tinnitus, bilateral] Onset: 07-31-2023 07-31-2023 Episodic Other nutritional; endocrine; and metabolic disorders (20 sources) Hyperuricemia; Translations: [Hyperuricemia without signs of inflammatory arthritis and tophaceous disease] Onset: 07-31-2023 12-21-2023 Episodic Screening and history of mental health and substance abuse codes (19 sources) Ex-cigarette smoker; Translations: [Personal history of nicotine dependence] Onset: 01-07-2024 01-07-2024 Episodic Spondylosis; intervertebral disc disorders; other back problems (15 sources) Sciatica; Translations: [Sciatica, unspecified side] Onset: 07-13-2023 Resolved: 12-20-2023 12-20-2023 Episodic Unclassified (1 source) Cough R05.9 Onset: 02-04-2022 Resolved: 02-04-2022 Unclassified (15 sources) Onset: 08-03-2023 Resolved: 08-01-2024 08-03-2023 Viral infection (1 source) COVID-19 Onset: 02-04-2022 Resolved: 02-04-2022 Results Test Name Value Interpretation Reference Range Facility ALBUMIN, RANDOM URINE W/CREA TININEon 02-21-2025 ALBUMIN, URINE 1.5 mg/dL Normal See Note: [facility] Comment on above: Order Comment: FASTI NG:YES FASTING: YES Result Comment: Refe rence Range: Reference Range Not established Performed By: #### 4 96, 1773 #### [facility] [address], [address] [place], [place] [id number] Purchasing Clerk: Juan Mckenna MD ALBUMIN/CREATININE RATIO, RANDOM URINE [...] diagnostic category. Performed By: #### 4 96, 4804 #### [facility] [address], [address] [place] [address] Purchasing Clerk: Juan Mckenna MD Creatinine (U) [Mass/Vol] 46 mg/dL Normal 20-320 [facility] Comment on above: Order Comment: FASTI NG:YES FASTING: YES Performed By: #### 4 , 6598 #### [facility] [place] [address] Purchasing Clerk: Juan Mckenna MD HEMOGLOBIN A1con 02-21-2025 HbA1c [...] diabetes for children. Performed By: #### 4 , 1824 #### [facility] [address], [address] [place] [address] Purchasing Clerk: Juan Mckenna MD COMPREHENSIVE METABOLIC PANE [facility] 02-07-2025 Albumin [Mass/Vol] 4.3 g/dL Normal 3.6-5.1 [facility] Comment on above: Performed By: #### 1 023, 90, 7600 #### [facility] [place] [address] Purchasing Clerk: Juan Mckenna MD Albumin/Globulin [Mass ratio] 1.7 {ratio} Normal 1.0-2.5 [facility] Comment on above: Performed By: #### 1 023, 905, 7600 #### [facility] [place] [address] Purchasing Clerk: Juan Mckenna MD ALP [Catalytic activity/Vol] 40 U/L Normal 35-144 [facility] Comment on above: Performed By: #### 1 0231, 905, 7600 #### [facility] of [address], [address] [place] [address] Purchasing Clerk: Juan Mckenna MD ALT [Catalytic activity/Vol] 16 U/L Normal 9-46 [facility] Comment on above: Performed By: #### 1 023, 905, 7600 #### [facility] of [address], [address] [place] [address] Purchasing Clerk: Juan Mckenna MD AST [Catalytic activity/Vol] 15 U/L Normal 10-35 [facility] Comment on above: Performed By: #### 1 023, 90, 7600 #### [facility] of [address], [address] [place] [address] Purchasing Clerk: Juan Mckenna MD Bilirubin [Mass/Vol] 0.5 mg/dL Normal 0.2-1.2 [facility] Comment on above: Performed By: #### 1 230, 90, 7600 #### [facility] of [address], [address] [place] [address] Purchasing Clerk: Juan Mckenna MD Calcium [Mass/Vol] 9.4 mg/dL Normal 8.6-10.3 [facility] Comment on above: Performed By: #### 1 230, 90, 7600 #### [facility] of [place] [address] Purchasing Clerk: Juan Mckenna MD Chloride [Moles/Vol] 102 mmol/L Normal 98-110 [facility] Comment on above: Performed By: #### 1 023, 90, 7600 #### [facility] of [address], [address] [place] [address] Purchasing Clerk: Juan Mcknena MD CO2 [Moles/Vol] 24 mmol/L Normal 20-32 [facility] Comment on above: Performed By: #### 1 023, 905, 7600 #### [facility] of [address], [address] [place] [address] Purchasing Clerk: Juan Mckenna MD Creatinine [Mass/Vol] 0.61 mg/dL Low 0.70-1.28 [facility] Comment on above: Performed By: #### 1 230, , 0 #### [facility] [place] [address] Purchasing Clerk: Juan Mckenna MD GFR/1.73 sq M.predicted among non-blacks MDRD (S/P/Bld) [Vol rate/Area] 101 mL/min/{1.73_m2} Normal > OR = 60 [facility] Comment on above: Performed By: #### 1 230, , 0 #### [facility] [place] [address] Purchasing Clerk: Juan Mckenna MD Globulin (S) [Mass/Vol] 2.5 g/dL Normal 1.9-3.7 [facility] Comment on above: Performed By: #### 1 230, , 0 #### [facility] [place] [address] Purchasing Clerk: Juan Mckenna MD Glucose [Mass/Vol] 198 mg/dL High 65-99 [facility] Comment on above: Result Comment: Fasting reference interval For someone without known diabetes, a glucose value >125 mg/dL indicates that they may have diabetes and this should be confirmed with a follow-up test. Performed By: #### 1 230, , 0 #### [facility] [place] [address] Purchasing Clerk: Juan Mckenna MD Potassium [Moles/Vol] 4.3 mmol/L Normal 3.5-5.3 [facility] Comment on above: Performed By: #### 1 230, , 7600 #### [facility] [place] [address] Purchasing Clerk: Juan Mckenna MD Protein [Mass/Vol] 6.8 g/dL Normal 6.1-8.1 [facility] Comment on above: Performed By: #### 1 230, , 7600 #### [facility] of [address], [address] [place] [address] Purchasing Clerk: Juan Mckenna MD Sodium [Moles/Vol] 137 mmol/L Normal 135-146 [facility] Comment on above: Performed By: #### 1 0231, 905, 7600 #### [facility] of [address], [address] [place] [address] Purchasing Clerk: Juan Mckenna MD Urea nitrogen [Mass/Vol] 9 mg/dL Normal 7-25 [facility] Comment on above: Performed By: #### 1 0231, 905, 7600 #### [facility] of [address], [address] [place] [address] Purchasing Clerk: Juan Mckenna MD Urea nitrogen/Creatinin e [Mass ratio] 15 mg/mg Normal 6-22 [facility] Comment on above: Performed By: #### 1 0231, 905, 7600 #### [facility] [address], [address] [place] [address] Purchasing Clerk: Juan Mckenna MD LIPID PANEL, [address] 0 Cholesterol [Mass/Vol] 169 mg/dL Normal <200 [facility] Comment on above: Order Comment: FASTI NG:YES FASTING: YES Performed By: #### 1 0231, 905, 7600 #### [facility] [place] [address] Purchasing Clerk: Juan Mckenna MD Cholesterol in HDL [Mass/Vol] 63 mg/dL Normal > OR = 40 [facility] Comment on above: Order Comment: FASTI NG:YES FASTING: YES Performed By: #### 1 0231, 905, 7600 #### [facility] of [place] [address] Purchasing Clerk: Juan Mckenna MD Cholesterol in LDL [Mass/Vol] [...] LDL-C. Keyshawn CHAVEZ et al. LAKESHA. 2013;310(19): 8649-1488 ([email or web address]) Performed By: #### 1 023, 905, 7600 #### [facility] [address], [address] [place] [address] Purchasing Clerk: Juan Mckenna MD Cholesterol.total/ Cholesterol in HDL [Mass ratio] 2.7 {ratio} Normal <5.0 [facility] Comment on above: Order Comment: FASTI NG:YES FASTING: YES Performed By: #### 1 023, 90, 7600 #### [facility] [address], [address] [place] [address] Purchasing Clerk: Juan Mckenna MD NON HDL CHOLESTEROL 106 mg/dL (calc) Normal <130 [facility] Comment on above: Order Comment: FASTI NG:YES FASTING: YES Result Comment: For patients with diabetes plus 1 major ASCVD risk factor, treating to a non-HDL-C goal of <100 mg/dL (LDL-C of <70 mg/dL) is considered a therapeutic option. Performed By: #### 1 023, 90, 7600 #### [facility] [address], [address] [place] [address] Purchasing Clerk: Juan Mckenna MD Triglyceride [Mass/Vol] 75 mg/dL Normal <150 [facility] Comment on above: Order Comment: FASTI NG:YES FASTING: YES Performed By: #### 1 023, 905, 7600 #### [facility] [place] [address] Purchasing Clerk: Juan Mckenna MD URIC ACIDon 02-07-2025 Urate [Mass/Vol] 5.5 mg/dL Normal 4.0-8.0 [facility] Comment on above: Result Comment: Ther apeutic target for gout patients: <6.0 mg/dL Performed By: #### 1 0231, 905, 4680 #### [facility] [address], [address] [place], [place] [id number] Purchasing Clerk: Juan Mckenna MD HEMOGLOBIN A1con 10-18-2024 HEMOGLOBIN [...] By: #### 4 96 #### [facility] [address], [address] [place], [place] [id number] Purchasing Clerk: Juan Mckenna MD XR Spine Lumbar 4+ [...] by Fabian Hollis on 07/06/2022 0723 Normal [facility] Sales Enablement Analyst ASYMPTOMATIC COVID-19 ANTIGE Non 04-13-2022 EUA Statement SEE BELOW Normal [facility] Comment on above: Result Comment: This test [...] sooner. Performed By: #### C VDAGA #### [facility] [address] [place] [address] Dr. Reza Tomas SARS-CoV-2 (COVID-19) RNA KULWANT+probe Ql (Unsp spec) Negative Normal NEGATIVE [facility] Comment on above: Result Comment: Nega tive results are presumptive. They do not preclude infection and should not be used as the sole basis for treatment decisions. Additional confirmatory testing by a molecular method should be considered. Performed By: #### C VDAGA #### [facility] Laboratory [address] [place], [place] [id number] Dr. Reza Tomas MRI Knee w/o Righton [...] by Derek Vaca on 03/28/2022 1513 Normal [facility] [employer] XR Chest 2 Views*on 03-06-20 22 XR [...] by Fabian Hollis on 03/06/2022 1006 Normal [facility] [employer] COVID Quick Testingon 2021 Result Positive [employer] Other US Aorta Screeningon 022 US Aorta Screening FINDINGS: Proximal Aorta2.0 x 2.2 cm Mid Aorta1.8 x 2.2 cm Distal Aorta1.9 x 1.7 cm Right Common Iliac11 x 12 mm Left Common Iliac9 x 12 mm No aneurysmal dilatation is identified. No neighboring fluid collections are seen. IMPRESSION: No significant aneurysmal formation. Report reported and signed by Fabian Hollis on 01/11/2022 1008 Normal [facility] Specialist Hemoglobin A1Con 11-24-2021 EAG 168.55 Normal [facility] Comment on above: Performed By: #### A 1C #### [facility] Laboratory [address], [place] [id number] HbA1c (Bld) [Mass fraction] 7.5 % High 4.0-6.0 [facility] [employer] Comment on above: Performed By: #### A 1C #### [facility] Laboratory [address], [place] [id number] COVID Quick Testingon 2020 Result Negative [employer] Other Vital Signs Date Time Vital Sign Value Performing Clinician Facility 02-24-2025 08:31-0400 Body height 180.3 cm Herman Pak MD Work Phone: [facility] 02-24-2025 08:31-0400 Body mass index (BMI) [Ratio] 33.05 kg/m2 Herman Pak MD Work Phone: [facility] 02-24-2025 08:31-0400 Body weight 107.5 kg Herman Pak MD Work Phone: [facility] 02-24-2025 08:31-0400 Diastolic blood pressure 86 mm[Hg] Herman Pak MD Work Phone: [facility] 02-24-2025 08:31-0400 Heart rate 82 /min Herman Pak MD Work Phone: [facility] 02-24-2025 08:31-0400 SaO2% (BldA) [Mass fraction] 96 % Herman Pak MD Work Phone: [facility] 02-24-2025 08:31-0400 Systolic blood pressure 138 mm[Hg] Herman Pak MD Work Phone: [facility] 10-22-2024 10:26-0500 Body height 180.3 cm Herman Pak MD Work Phone: [facility] 10-22-2024 10:26-0500 Body mass index (BMI) [Ratio] 31.8 kg/m2 Herman Pak MD Work Phone: [facility] 10-22-2024 10:26-0500 Body weight 103.42 kg Herman Pak MD Work Phone: [facility] 10-22-2024 10:26-0500 Diastolic blood pressure 72 mm[Hg] Herman Pak MD Work Phone: [facility] 10-22-2024 10:26-0500 Heart rate 96 /min Herman Pak MD Work Phone: [facility] 10-22-2024 10:26-0500 SaO2% (BldA) [Mass fraction] 97 % Herman Pak MD Work Phone: [facility] 10-22-2024 10:26-0500 Systolic blood pressure 124 mm[Hg] Herman Pak MD Work Phone: [facility] 07-21-2024 09:54-0400 Body height 180.3 cm Herman Pak MD Work Phone: [facility] 07-21-2024 09:54-0400 Body mass index (BMI) [Ratio] 33.19 kg/m2 Herman Pak MD Work Phone: [facility] 07-21-2024 09:54-0400 Body weight 107.96 kg Herman Pak MD Work Phone: [facility] 07-21-2024 09:54-0400 Diastolic blood pressure 82 mm[Hg] Herman Pak MD Work Phone: [facility] 07-21-2024 09:54-0400 Heart rate 84 /min Herman Pak MD Work Phone: [facility] 07-21-2024 09:54-0400 SaO2% (BldA) [Mass fraction] 97 % Herman Pak MD Work Phone: [facility] 07-21-2024 09:54-0400 Systolic blood pressure 140 mm[Hg] Herman Pak MD Work Phone: [facility] 03-16-2024 09:51-0400 Body height 177.8 cm [facility] 03-16-2024 09:51-0400 Body mass index (BMI) [Ratio] 34.4 kg/m2 [facility] 03-16-2024 09:51-0400 Body temperature 98.5 [degF] [facility] 03-16-2024 09:51-0400 Body weight 108.86 kg [facility] 03-16-2024 09:51-0400 Diastolic blood pressure 62 mm[Hg] [facility] 03-16-2024 09:51-0400 Heart rate 85 /min [facility] 03-16-2024 09:51-0400 Respiratory rate 18 /min [facility] 03-16-2024 09:51-0400 SaO2% (BldA) [Mass fraction] 96 % [facility] 06-16-2024 09:51-0400 Systolic blood pressure 110 mm[Hg] [facility] 02-04-2022 11:30-0400 Body height 177.8 cm Danelle Silva Other [employer] Other 02-04-2022 11:30-0400 Body mass index (BMI) [Ratio] 38.74 kg/m2 Danelle Silva Other [employer] Other 02-04-2022 11:30-0400 Body temperature 98.2 [degF] Danelle Silva Other [employer] Other 02-04-2022 11:30-0400 Body weight 122.47 kg Danelle Silva Other [employer] Other 02-04-2022 11:30-0400 SaO2% (BldA) [Mass fraction] 91 % Danelle Silva Other [employer] Other 09-23-2021 11:45-0500 Body height 177.8 cm Essence Brisa Other [employer] Other 09-23-2021 11:45-0500 Body mass index (BMI) [Ratio] 38.74 kg/m2 Essence Ledezma Other [employer] Other 09-23-2021 11:45-0500 Body temperature 98.6 [degF] Essence Brisa Other [employer] Other 09-23-2021 11:45-0500 Body weight 122.47 kg Essence Brisa Other [employer] Other 09-23-2021 11:45-0500 SaO2% (BldA) [Mass fraction] 94 % Essence Ledezma Other [employer] Other 07-19-2021 10:45-0400 Body height 177.8 cm Danelle Silva Other [employer] Other 07-19-2021 10:45-0400 Body mass index (BMI) [Ratio] 38.74 kg/m2 Danelle Silva Other [employer] Other 07-19-2021 10:45-0400 Body temperature 97.1 [degF] Danelle Silva Other [employer] Other 07-19-2021 10:45-0400 Body weight 122.47 kg Danelle Silva Other [employer] Other 07-19-2021 10:45-0400 Respiratory rate 18 /min Danelle Silva Other [employer] Other 07-19-2021 10:45-0400 SaO2% (BldA) [Mass fraction] 97 % Danelle Silva Other [employer] Other Encounters Encounter Date Encounter Type Care Provider Facility Start: 03-25-2025 End: 03-25-2025 Orders Only Herman Pak MD Work Phone: [facility] Comment on above: Retinal detachment, traction, left (Primary Dx) Start: 03-24-2025 ambulatory EDSHAUNA PAK [facility] Start: 03-22-2025 End: 03-25-2025 Emergency department patient visit HERMAN PAK [facility] Start: 02-24-2025 End: 02-24-2025 Bamboo flowsheet Herman Pak MD Work Phone: [facility] Start: 02-24-2025 End: 02-24-2025 Bamboo flowsheet Herman Pak MD Work Phone: [facility] Start: 02-24-2025 End: 02-24-2025 Office outpatient visit 25 minutes Herman Pak MD Work Phone: [facility] [...] excess calories Start: 02-24-2025 End: 02-24-2025 ambulatory HERMAN PAK Not Available Start: 01-14-2025 End: 01-14-2025 Orders Only Herman Pak MD Work Phone: [facility] Start: 12-22-2024 End: 12-22-2024 ambulatory HERMAN PAK Not Available Start: 10-22-2024 End: 10-22-2024 Bamboo flowsheet Herman Pak MD Work Phone: [facility] Start: 10-22-2024 End: 10-22-2024 Bamboo flowsstormy Pak MD Work Phone: [facility] Start: 10-22-2024 End: 10-22-2024 Office outpatient visit 25 minutes Herman Pak MD Work Phone: [facility] [...] cigarette smoker Start: 10-22-2024 End: 10-22-2024 ambulatory HERMAN PAK Not Available Start: 10-14-2024 End: 10-14-2024 Bamboo flowsstormy Pak MD Work Phone: [facility] Start: 10-14-2024 End: 10-14-2024 Bamboo flowsheet Herman Pak MD Work Phone: [facility] Start: 10-14-2024 End: 10-14-2024 Office outpatient visit 15 minutes Herman Pak MD Work Phone: [facility] Comment on above: Bronchitis (Primary Dx); Type 2 diabetes mellitus with hyperglycemia, without long-term current use of insulin (CMS/HCC) Start: 10-14-2024 End: 10-14-2024 ambulatory HERMAN PAK Not Available Start: 07-21-2024 End: 07-21-2024 Bamboo flowsstormy Pak MD Work Phone: [facility] Start: 07-21-2024 End: 07-21-2024 Bamalberto esteban Pak MD Work Phone: [facility] Start: 07-21-2024 End: 07-21-2024 Office outpatient visit 25 minutes Herman Pak MD Work Phone: [facility] Comment on above: Type 2 diabetes roma itus with hyperglycemia, without long-term current use of insulin (CMS/HCC) (Primary Dx); Benign essential hypertension (CMS/HCC); Hyperuricemia; Non-alcoholic fatty liver disease; Class 1 obesity due to excess calories with serious comorbidity and body mass index (BMI) of 33.0 to 33.9 in adult Start: 07-21-2024 End: 07-21-2024 ambulatory HERMAN PAK Not Available Start: 07-17-2024 End: 07-17-2024 Refill Herman Pak MD Work Phone: [facility] Start: 03-16-2024 End: 03-16-[address] [facility] Work Phone: Start: 03-16-2024 End: 03-16-2024 Patient encounter procedure [facility] Work Phone: Start: 03-11-2024 End: 03-11-2024 ambulatory HERMAN PAK Not Available Start: 04-14-2022 Encounter for preprocedural laboratory examination [facility] Start: 04-13-2022 End: 04-14-[address] HERMAN PAK Facility:[facility] Start: 04-13-2022 End: 04-14-2022 Encounter for preprocedural laboratory examination DR HERMAN PAK Facility:[facility] Start: 02-04-2022 End: 02-04-2022 ambulatory Danelle Silva Other [employer] Other Start: 02-04-2022 Office outpatient vi sit 15 minutes Danelleevelina Silva [facility] Start: 09-23-2021 End: 09-23-2021 ambulatory Essenceamandeep Ledezma Other [employer] Other Start: 09-23-2021 Office outpatient vi sit 15 minutes Essence Brisa [facility] Start: 07-19-2021 Office outpatient vi sit 15 minutes Danelle Ricardo [facility] Procedures Date Procedure Procedure Detail Performing Clinician Start: 11-05-2019 Colonoscopy Herman perez MD Work Phone: Plan of Treatment Date Care Activity Detail Author Start: 11-05-2029 Screening for malignant neoplasm of colon [facility] Start: 02-20-2026 Urine screening for protein Diabetes: Urine Protein Screening [facility] Start: 10-17-2025 Glaucoma screening Diabetes: Retinopathy Screening [facility] Start: 05-23-2025 Hemoglobin A1c measurement Diabetes: Hemoglobin A1C [facility] Start: 04-26-2025 End: 02-24-2026 Hemoglobin A1c/Hemoglobin.total in Blood Hemoglobin A1c Lab Routine Type 2 diabetes mellitus with hyperglycemia, without long-term current use of insulin (CMS/HCC) Expected: 04/26/2025, Expires: 02/24/2026 [facility] Work Phone: Comment on above: Expected: 04/26/2025, Expires: Start: 04-01-2025 End: 04-01-2025 Patient encounter procedure 04/01/2025 10:30 AM EDT Office Visit [facility] [address] [place] [address] Herman Pak MD [address] [place] [address] (Fax) [facility] Start: 02-24-2025 End: 02-24-2025 Patient encounter procedure 02/24/2025 8:30 AM EDT Office Visit [facility] [address] [place] [address] Herman Pak MD [address] [place] [address] (Fax) Benign essential hypertension (CMS/HCC); Microalbuminuria; Type 2 [...] [address] [place] [address] Herman Pak MD [address] [place] [address] (Fax) [facility] Start: 02-03-2025 End: 02-03-2025 Patient encounter procedure 02/03/2025 10:00 AM EDT Office Visit [facility] [address] [place] [address] Herman Pak MD [address] [place] [address] (Fax) [facility] Start: 01-15-2025 Hemoglobin A1c measurement Diabetes: Hemoglobin A1C [facility] Start: 12-10-2024 Urine screening for protein Diabetes: Urine Protein Screening [facility] Start: 10-22-2024 End: 10-22-2024 Patient encounter procedure [facility] Comment on above: Benign essential hypertension ([facility]); Microalbuminuria; Type 2 diabetes mellitus with both eyes affected by mild nonproliferative retinopathy without macular edema, without long-term current use of insulin ([facility]); Hyperuricemia; Former cigarette smoker; Morbid obesity due to excess calories ([facility]) Start: 10-18-2024 Hemoglobin A1c measurement Diabetes: Hemoglobin A1C [facility] Start: 10-15-2024 End: 10-15-2024 Patient encounter procedure 10/15/2024 10:00 AM EST Office Visit [facility] [address] [place] [address] Herman Pak MD [address] [place] [address] (Fax) [facility] Start: 10-14-2024 End: 10-14-2024 Patient encounter procedure 10/14/2024 11:45 AM EST Office Visit [facility] [address] [place] [address] Herman Pak MD [address] [place] [address] (Fax) Arrived [facility] Comment on above: Arrived Start: 10-10-2024 Glaucoma screening Diabetes: Retinopathy Screening [facility] Start: 09-20-2024 End: 07-21-2025 Hemoglobin A1c/Hemoglobin.total in Blood Hemoglobin A1c Lab Routine Type 2 diabetes mellitus with hyperglycemia, without long-term current use of insulin ([facility]) Expected: 09/20/2024 (Approximate), Expires: 07/21/2025 [facility] Work Phone: Comment on above: Expected: 09/20/2024 (Approximate), Expi res: 07/21/2025 Start: 07-21-2024 End: 07-21-2024 Patient encounter procedure [facility] Comment on above: Arrived Start: 06-05-2024 Hemoglobin A1c measurement Diabetes: Hemoglobin A1C [facility] Start: 1950 Screening for malignant neoplasm of colon [facility] Payers Date Payer Category Payer Medicare (Managed Care) CHEO Mendez [employer] [id number] 2017 Unknown [id number] 2015 Medicare [id number] [id number] 1959 Medicare [id number] 2..[id number] 1950 Unknown [id number] 2..[id number] .593 1950 Unknown [id number] 2.16.840.1.033574.3.579.2 .1259 1950 Unknown [id number] 2..840.1.358082.3.579.2 .1259 1950 Unknown [id number] 2.16.840.1.210862.3.579.2 .1259 1950 Unknown [id number] 2.16.840.1.164218.3.579.2 .1259 1950 Unknown [id number] 2.16.840.1.337843.3.579.2 .1259 1950 Unknown [id number] 2.16.840.1.055850.3.579.2 .1259 1950 Unknown [id number] 2.16.840.1.433295.3.579.2 .1286 1950 Unknown [id number] 2.16.840.1.373372.3.579.2 .1286 1950 Unknown [id number] 2.16.840.1.481798.3.579.2 .1286 1950 Unknown [id number] 2.16.840.1.698400.3.579.2 .1286 1950 Unknown [id number] 2.16.840.1.603675.3.579.2 .1286 Medicare Medicare [id number] Unknown [employer]/BS [id number] Social History Date Type Detail Facility Unknown if ever smoked [employer] Other Start: 08-03-2023 End: 02-04-2025 Sex Assigned At [employer] [employer] Other Start: 03-16-2024 Tobacco smoking status RIIS Never smoked tobacco (finding) [facility] Start: 1950 Sex Assigned At Male [facility] Start: 03-11-2024 Tobacco smoking status RIIS Ex-smoker [facility] Start: 10-01-1965 End: 10-01-1990 History of tobacco use Current smoker [facility] Start: 10-01-1965 End: 10-01-1990 History of tobacco use Cigarette Smoker [facility] Start: 03-11-2024 End: 02-04-2025 Cigarettes smoked current (pack per day) - Reported 1 [facility] Start: 03-11-2024 Tobacco use and exposure Smokeless tobacco non-user [facility] Start: 03-11-2024 End: 02-24-2025 Alcoholic beverage intake Ex-drinker (finding) [facility] Within the last year , have you been afraid of your partner or ex-partner? No [facility] Do you belong to any clubs or organizations such as yarsanism groups, unions, [employer] or athletic groups, or school groups? Yes [...] Thin Lancets) 30 gauge misc Start: 03-16-2024 [id number] Start: 11-24-2022 End: 11-18-2025 Use to inject 1 time daily as directed. [id number] Start: 11-18-2024 End: 11-18-2025 Functional Status Date Assessment Result Facility 02-24-2025 Patient Health Quest ionnaire 2 item (PHQ-2) [Reported] [facility] Clinical Notes 07-19-2021 to 03-25-2025 Herman Pak MD - 03/25/2025 9:00 AM Logan Pak MD - 02/24/2025 8:30 AM Logan Pak MD - 01/14/2025 10:48 AM Logan Pak MD - 10/22/2024 10:30 AM EST Note Date & Type Note Facility 03-25-2025 History of Present illness Narrative Reviewed ophthalmology note. Updated chronic problem list and updated acute problem list. documented in this encounter [facility] 02-24-2025 History of Present illness Narrative Images [...] % 96 % 96 % Height (in) 5' 11 5' 11 5' 5' 11 5' 11 Weight (lb) 240 232.5 244 238 228 [...] check BLOOD SUGAR TWICE DAILY Continuous Glucose Shoe Designer (FreeStyle Bridger 3 Stayton) device 1 Device See administration instructions Using Bridger 3 plus sensors 1 each 0 insulin degludec (Tresiba FlexTouch) 100 UNIT/ML injection Inject 10 Units under the skin Daily 15 mL 0 insulin pen needle 31G X 8 mm misc Use to inject 1 time daily as directed. 100 each 0 Lancets (Kivun HadashTouch Delica Plus [id number]) misc USE DIRECTED TWICE DAILY and NEEDED 200 each 3 K[employer] HadashTouch Verio test strip 1 each by Other [...] without long-term current use of insulin (CMS/HCC) He has been out of his glucose sensor for 2 full weeks or more. - Continuous Glucose Sensor (FreeStyle Bridger 3 Plus Sensor) [facility]; Inject 1 Device into the skin Every [...] ask questions and they declined medical intervention. Approximatley 5 minutes was spent on counseling 9. Non morbid obesity due to excess calories Really encouraged lifestyle activities. documented in this encounter [facility] 01-14-2025 History of Present illness Narrative The letter is generated. A front to [facility]. documented in this encounter [facility] 10-22-2024 History of Present illness Narrative Images [...] to check BLOOD SUGAR TWICE DAILY Lancets (OneTouch Delica Plus [id number]) misc USE DIRECTED TWICE DAILY and NEEDED [...] for 7 days 7 tablet 0 [DISCONTINUED] bjobfejzemjhawi-IB-TR (Capmist DM) 60-15-400 MG tablet Take 1 [...] without long-term current use of insulin (CMS/HCC) We had a rather long discussion today. [...] edema, without long-term current use of insulin ([facility]) In prescribing a new medication consideration [...] morning. Take before meals. - Continuous Glucose Shoe Designer (FreeStyle Bridger 3 Stayton) device; 1 Device See administration instructions - [...] start smoking again. documented in this encounter [facility] 10-14-2024 History of Present illness Narrative Images [...] nasal congestion which is not improving with dnnp-meh-aqfchzy medication. Notes he has maxillary pain. Had [...] to check BLOOD SUGAR TWICE DAILY Lancets (OneTouch Delica Plus [id number]) misc USE DIRECTED TWICE DAILY and NEEDED [...] hyperglycemia, without long-term current use of insulin ([facility]) Historically is not been to A1c [...] evaluation and management. documented in this encounter [facility] 07-21-2024 History of Present illness Narrative Images from the original note were not included. Patient ID: Greogrio Kirkland is a 73 y.o. male who [...] to check BLOOD SUGAR TWICE DAILY Lancets (Kivun HadashTouch Delica Plus [id number]) misc USE DIRECTED TWICE DAILY and NEEDED [...] hyperglycemia, without long-term current use of insulin ([facility]) (Primary) We had a long discussion [...] - Hemoglobin A1c 2. Benign essential hypertension ([facility]) Chronic problem, stable, to goal - losartan [...] he is missing. documented in this encounter [facility] 08-02-2022 Note PROCEDURE: [employer] Signa HDXT 1.5 Sagittal T1, T2, STIR [...] signed by Fabian Hollis on 08/02/2022 1150 [facility] [employer] 03-13-2022 Note HISTORY: Cough, SOB, s/p COVID PROCEDURE: [place] VCT 64. Using high resolution CT technique [...] signed by Fabian Hollis on 03/13/2022 1058 [facility] [employer] [facility] 02-04-2022 Evaluation note Encounter Date Diagnosis Assessment [...] weeks for the cough to go away. [employer] Other 12-24-2021 Evaluation note* Encounter Date Diagnosis [...] Patient care instructions given in writting by [facility] document. [employer] Other 10-19-2021 Evaluation note* Encounter Date Diagnosis [...] Patient care instructions given in writting by [facility] document. [employer] Other Evaluation note* Diagnosis Onset Date Resolution Status Viral URI with cough acute [facility] Work Phone: Evaluation note* Diagnosis Type 2 diabetes mellitus with hyperglycemia, without long-term current use of insulin (CMS/HCC)- Primary Benign essential hypertension (CMS/HCC) Essential hypertension, benign Hyperuricemia Other abnormal blood chemistry Non-alcoholic fatty liver disease Class 1 obesity due to excess calories with serious comorbidity and body mass index (BMI) of 33.0 to 33.9 in adult documented in this encounter [facility]* Diagnosis Benign essential hypertension (CMS/HCC) Essential hypertension, benign Microalbuminuria Proteinuria Type 2 diabetes mellitus with hyperglycemia, without long-term current use of insulin (CMS/HCC) Type 2 diabetes mellitus with both eyes affected by mild nonproliferative retinopathy without macular edema, without long-term current use of insulin (CMS/HCC) Hyperuricemia Other abnormal blood chemistry Morbid obesity due to excess calories (CMS/HCC) Former cigarette smoker Personal history of tobacco use, presenting hazards to health documented in this encounter [facility]* Diagnosis Bronchitis- Primary Bronchitis, not specified as acute or chronic Type 2 diabetes mellitus with hyperglycemia, without long-term current use of insulin (CMS/HCC) documented in this encounter [facility]* Diagnosis Benign essential hypertension (CMS/HCC)- Primary Essential hypertension, benign Hypertensive nephropathy (CMS/HCC) Unspecified hypertensive kidney disease with chronic kidney disease stage I through stage IV, or unspecified Microalbuminuria Proteinuria Diabetic nephropathy associated with type 2 diabetes mellitus (HCC) (CMS/HCC) Type 2 diabetes mellitus with hyperglycemia, without long-term current use of insulin (CMS/HCC) Type 2 diabetes mellitus with both eyes affected by mild nonproliferative retinopathy without macular edema, without long-term current use of insulin (CMS/HCC) Hyperuricemia Other abnormal blood chemistry Former cigarette smoker Personal history of tobacco use, presenting hazards to health Non morbid obesity due to excess calories [facility] Diagnosis Retinal detachment, traction, left- Primary Traction detachment of retina Encounter for examination following treatment at hospital documented [facility] Narrative - Reported* Type Description Date Medical History hypertension Medical History diabetes mallitus Surgical History right shoulder X2 Surgical History back surgery Surgical History hernia repair Surgical History hemorrhoidectomy Surgical History L carpal tunnel release Hospitalization History See Above [employer] Other Summary Purpose Family History No Family History Records Found Relationship Condition Age at Onset Recorded Date/T delaney father Unknown Not Specified Unknown Advance Directives No Advanced Directives Records Found Advance Directive Response Recorded Date/ Time Advance Directives No March 16 24 9:38am Chief Complaint and Reason for Visit [...] and content) DATE CREATED AUTHOR 04/19/2022 [facility] DATE CREATED AUTHOR AUTHOR'S ORGANIZ ATION 08/03/2022 [facility] DATE CREATED AUTHOR AUTHOR'S ORGANIZ ATION 02/27/2025 [facility] DATE CREATED AUTHOR AUTHOR'S ORGANIZ ATION 02/27/2025 [facility] EPIC DATE CREATED AUTHOR AUTHOR'S ORGANIZ ATION 03/29/2025 [facility] Care Teams (unrecognized sec tion and content) Team Status: Active Member Role Status Dates Herman Pak MD Primary Care Provider Active Team Status: Inactive Member Role Status Dates Herman Pak MD Primary Care Provider Active Start: March 16, 2024 End: March 16, 2024 Amy Grover APRN Attending Provider Active Start: March 16, 2024 End: March 16, 2024 Shear Helper Relationship Specialty Start Date End Date Herman Pak MD [address] [place] [address] (Fax) PCP - Cheo [place] 10/01/21 Herman Pak MD [address] [place] [address] PCP - General Family Medicine 11/29/23 Satish Ruvalcaba MD [address] [place] [address] Referring Physician Ophthalmology 12/26/23 Shear Helper Relationship Specialty Start Date End Date Herman Pak MD [address] [place] [address] (Fax) PCP - Cheo TAYLOR 10/01/21 Herman Pak MD [address] [place] [phone] PCP - General Family Medicine 11/29/23 Satish Ruvalcaba MD [address] [place] [address] Referring Physician Ophthalmology 12/26/23 Shear Helper Relationship Specialty Start Date End Date Herman Pak MD [address] [place] [address] (Fax) PCP - Cheo TAYLOR 10/01/21 Herman Pak MD [address] [place] [phone] PCP - General Family Medicine 11/29/23 Satish Ruvalcaba MD [address] [place] [address] Referring Physician Ophthalmology 12/26/23 Shear Helper Relationship Specialty Start Date End Date Herman Pak MD [address] [facility] [address] [place] [address] (Fax) PCP - Cheo TAYLOR 10/01/21 Herman Pak MD [address] [place] [address] (Fax) PCP - General Family Medicine 11/29/23 Satish Ruvalcaba MD [address] [place] [address] Referring Physician Ophthalmology 12/26/23 Shear Helper Relationship Specialty Start Date End Date Herman Pak MD [address] [facility] [address] [place] [address] (Fax) PCP - Cheo ATYLOR 10/01/21 Herman Pak MD [address] [place] [address] (Fax) PCP - General Family Medicine 11/29/23 Satish Ruvalcaba MD [address] [place] [address] Referring Physician Ophthalmology 12/26/23 Shear Helper Relationship Specialty Start Date End Date Herman Pak MD [address] [place] [address] (Fax) PCP - Cheo TAYLOR 10/01/21 Herman Pak MD [address] [place] [address] (Fax) PCP - General Family Medicine 11/29/23 Satish Ruvalcaba MD [address] [place], [place] [phone] Referring Physician Ophthalmology 12/26/23 Shear Helper Relationship Specialty Start Date End Date Herman Pak MD [address] [place] [address] (Fax) PCP - Cheo TAYLOR 10/01/21 Herman Pak MD [address] [place] [address] (Fax) PCP - General Family Medicine 11/29/23 Satish Ruvalcaba MD [address] [place], [place] [phone] Referring Physician Ophthalmology 12/26/23 Shear Helper Relationship Specialty Start Date End Date Herman Pak MD [address] [place] [address] (Fax) PCP - Cheo TAYLOR 10/01/21 Herman Pak MD [address] [place] [address] (Fax) PCP - General Family Medicine 11/29/23 Satish Ruvalcaba MD [address] [place], [place] [phone] Referring Physician Ophthalmology 12/26/23 Jojo Jc LPN 01/01/25 Shear Helper Relationship Specialty Start Date End Date Herman Pak MD [address] [place] [address] (Fax) PCP - Cheo TAYLOR 10/01/21 Herman Pak MD [address] [place] [address] PCP - General Family Medicine 11/29/23 Satish Ruvalcaba MD [address] [place] [phone] Referring Physician Ophthalmology 12/26/23 Jojo Jc LPN 01/01/25 Shear Helper Relationship Specialty Start Date End Date Herman Pak MD [address] [place] [address] (Fax) PCP Denisa Grider MA 10/01/21 Herman Pak MD [address] [place] [address] (Fax) PCP - General Family Medicine 11/29/23 Satish Ruvalcaba MD [address] [place] [address] Referring Physician Ophthalmology 12/26/23 Jojo Jc LPN 01/01/25 Shear Helper Relationship Specialty Start Date End Date Herman Pak MD [address] [place] [address] (Fax) PCP Denisa Grider MA 10/01/21 Herman Pak MD [address] [facility] [address] [place] [address] PCP - General Family Medicine 11/29/23 Satish Ruvalcaba MD [address] [place] [address] Referring Physician Ophthalmology 12/26/23 Jojo Jc LPN [address] [facility] [address] [place] [address] 01/01/25 Goals (unrecognized section and content) Goals [...] BE BASED ON THE PRIMARY CLINICAL RECORDS. [email or web address] provides no warranty or guarantee of the accuracy or completeness of information in this document.
== END 2025-03-23 13:44 | disposition home or self-care (01) ==
LOC: ER 14:01 → MS 17:54
PROVIDERS: Admitting Provider Family Medicine; Emergency Provider Emergency Medicine; PCP Family Medicine; Visit Provider Student in an Organized Health Care Education/Training Program
DX: H53.8 Other visual disturbances (principal); E11.319 Type 2 diabetes mellitus with unspecified diabetic retinopathy without macular edema; Z79.4 Long term (current) use of insulin; Z87.891 Personal history of nicotine dependence; Z79.84 Long term (current) use of oral hypoglycemic drugs; I10 Essential (primary) hypertension; M10.9 Gout, unspecified; E11.65 Type 2 diabetes mellitus with hyperglycemia; D50.9 Iron deficiency anemia, unspecified; I25.2 Old myocardial infarction; R29.90 Unspecified symptoms and signs involving the nervous system
CPT/HCPCS: 36415; 70030; 70450; 70496; 70498; 70551; 80053; 80061; 82948; 83036; 85025; 85652; 86140; 92523; 93005; 93270; 93306; 94761; 97161; 99285; G0378; Q9967